=== PATIENT | female | born 1960 | race Two or more races ===

== ENCOUNTER 2019-04-24 06:43 | Inpatient (IN) | payer MEDICAID ==
[2019-04-24 07:53] LABS: % EOSINOPHILS 2.1 % (0.0-5.0); % LYMPHOCYTES 12.4 % (20.0-50.0); % MONOCYTES 7.8 % (2.0-10.0); % NEUTROPHILS 77.7 % (40.0-80.0); EOSINOPHILE ABSOLUTE 0.1 Th/cmm (0.1-0.4); HEMATOCRIT 36.5 % (41.0-60); HEMOGLOBIN 12.1 gm/dL (12-16); LYMPHOCYTE ABSOLUTE 0.8 Th/cmm (1.5-3.0); MEAN CELL VOLUME 88.1 fl (81-100); MEAN CORPUSCULAR HEMOGLOBIN 29.3 pg (27.0-31.0); MEAN CORPUSCULAR HGB CONC 33.2 pg (28.0-36.0); MONOCYTE ABSOLUTE 0.5 Th/cmm (0.3-1.0); NEUTROPHILE ABSOLUTE 5.2 Th/cmm (1.8-8.0); PLATELET COUNT 345 Th/cmm (150-400); RED BLOOD COUNT 4.14 Mil/cmm (3.80-5.10); RED CELL DISTRIBUTION WIDTH 13.4 % (11.5-20.0); WHITE BLOOD COUNT 6.6 Th/cmm (4.8-10.8)
[2019-04-24 08:00] LABS: INR 0.98 (0.5-1.4)
[2019-04-24 08:08] LABS: ALB/GLOB RATIO 0.8 (1.0-1.8); ALBUMIN 3.3 gm/dL (3.7-5.3); ALKALINE PHOSPHATASE 77 U/L (34-104); AMYLASE SERUM 54 U/L (29-103); ANION GAP 10.8 (7.0-16.0); BILIRUBIN,TOTAL 0.4 mg/dL (0.3-1.0); BUN - UREA NITROGEN 13 mg/dL (7-25); CALCIUM SERUM 9.4 mg/dL (8.6-10.3); CARBON DIOXIDE 23.4 mEq/L (21.0-31.0); CHLORIDE 105 mEq/L (98-107); CREATININE - SERUM 0.8 mg/dL (0.6-1.2); GFR AFRICAN-AMERICAN > 60.0 ml/min (>90); GFR NON AFRICAN-AMERICAN > 60.0 ml/min; GLUCOSE 90 mg/dL (70-105); LIPASE 10 U/L (11-82); POTASSIUM SERUM 3.2 mEq/L (3.5-5.1); SGOT 11 U/L (13-39); SGPT/ALT 9 U/L (7-52); SODIUM SERUM 136 mEq/L (136-145); TOTAL PROTEIN,SERUM 7.3 gm/dL (6.0-8.3)
[2019-04-24] MEDS ORDERED: Morphine Sulfate 4 mg/mL 1mL Syr IVP STA (08:48)
[2019-04-24] MEDS ORDERED: Morphine Sulfate 4 mg/mL 1mL Syr ONE (08:49)
[2019-04-24] MEDS ORDERED: Potassium Chloride 20 mEq ER Tab PO ONE ×2 (08:51→08:52)
[2019-04-24] MEDS ORDERED: Morphine Sulfate 4 mg/mL 1mL Syr IV STA (08:52)
--- NOTE | 2019-04-24 09:00 | ED Physician Chart ---
ED Chief Complaint/HPI - Patient Information Date Seen:: 04/24/19 Time Seen:: 08:54 Chief Complaint:: ABD PAIN History of Present Illness:: 58 YR OLD FEMALE WITH HX OF UTERINE CANCER SURGERY 2004 GASTRIC BYPASS SURGERY LATER ON THEN LAST DECEMBER BOWEL SURGERY FOR BOWEL OBSTRUCTION AT [facility] BY DR GAINES COMES NOW FROM [facility] PT OF DR PRASAD PT NOW WITH WOUND OPENING TWO BIG HOLES IN THE WOUND WOUND SCARRING REDDNESS DRAINAGE Allergies:: Allergies Allergy/AdvReac Type Severity Reaction Status Date / Time No Known Allergies Allergy Verified 04/24/19 06:53 Vitals:: Vital Signs - 8 hr 04/24/19 06:45 Temp 98.8 F HR 93 RR 20 BP 108/63 O2 Sat % 96 ED Review of Systems - Review of Systems General/Constitutional: No fever Skin: Other (OPEN MIDLINE WOUND WITH DRAINAGE REDDNESS) Head: No headache ENT: No earache Cardio Vascular: No chest pain Pulmonary: No SOB GI: No vomiting, Constipation G/U: Dysuria, Other (LOSS OF URINARY CONTROL) Musculoskeletal: Back pain Psychiatric: Depression ED Past Medical History - Past Medical History Past Medical History: Other (HYPOTENSION TRACH ON LIFE SUPPORT FOR 3 MOS AT [facility]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 HX COPD ARRYTHMIA ANEMIA PSYCHOSIS PER CHART AND ANXIETY SEPSIS) Family Medical History - Family Member Mother History Unknown: Yes ED Physical Exam - Physical Examination General/Constitutional: Awake (VERY HEAVY SET LADY WITH DIFFICULTIES MOVING IN BED) Head: Atraumatic Eyes: Lids, conjuctiva normal Other Skin comments:: WOUND MIDLINE MUCH SCARRING WITH TWO OPEN HOLES IN THE MIDLINE WOUND IN MIDLINE WOUND WITH REDDNESS DRAINAGE Respiratory: Nl effort/Exclusion Cardio Vascular: RRR Other GI comments:: OPEN WOUND AND DRAINAGE REDDNESS Neuro/Psych: Alert/oriented ED Labs/Radiology/EKG Results - Lab Results Results: Laboratory Tests 04/24/19 04/24/19 04/24/19 07:35 07:35 07:35 WBC 6.6 RBC 4.14 Hgb 12.1 Hct 36.5 L MCV 88.1 MCH 29.3 MCHC Differential 33.2 RDW 13.4 Plt Count 345 MPV 7.6 Neutrophils % 77.7 Lymphocytes % 12.4 L Monocytes % 7.8 Eosinophils % 2.1 Basophils % 0.0 PT 10.2 INR 0.98 Sodium 136 Potassium 3.2 L Chloride 105 Carbon Dioxide 23.4 Anion Gap 10.8 BUN 13 Creatinine 0.8 Est GFR ( Amer) > 60.0 Est GFR (Non-Af Amer) > 60.0 BUN/Creatinine Ratio 16.3 Glucose 90 Calcium 9.4 Total Bilirubin 0.4 AST 11 L ALT 9 Alkaline Phosphatase 77 Troponin I Total Protein 7.3 Albumin 3.3 L Globulin 4.0 Albumin/Globulin Ratio 0.8 L Amylase 54 Lipase 10 L 04/24/19 07:35 WBC RBC Hgb Hct MCV MCH MCHC Differential RDW Plt Count MPV Neutrophils % Lymphocytes % Monocytes % Eosinophils % Basophils % PT INR Sodium Potassium Chloride Carbon Dioxide Anion Gap BUN Creatinine Est GFR ( Amer) Est GFR (Non-Af Amer) BUN/Creatinine Ratio Glucose Calcium Total Bilirubin AST ALT Alkaline Phosphatase Troponin I 0.01 Total Protein Albumin Globulin Albumin/Globulin Ratio Amylase Lipase ED Assessment - Assessment General Assessment: WOUND OPEN DRAINING AFTER BOWEL OBSTRUCTION SURGERY ED Septic Shock - . Is Septic Shock (SBP<90, OR Lactate>4 mmol\L) present?: No - <6hrs of presentation: Vital Signs: Vital Signs - 8 hr 04/24/19 06:45 Temp 98.8 F HR 93 RR 20 BP 108/63 O2 Sat % 96
--- NOTE | 2019-04-24 09:12 | Diagnostic Imaging Report ---
CT abdomen and pelvis without intravenous contrast Indication: Abdominal pain, history of uterine cancer Comparison: None, Technique: Axial images were obtained from the lung bases to the bilateral proximal femurs without IV contrast. Coronal reconstructions were made. total DLP: [id number], CTDI14.1 FINDINGS: Hypoventilatory and atelectatic changes of the lung bases are seen with minimal bibasal passive atelectatic changes. Assessment of the solid organs is limited due to lack of IV contrast. No evidence of focal hepatic lesions. The patient is status post cholecystectomy. No focal splenic lesions. No focal pancreatic or axial lesions. There is severe right hydronephrosis. Faint inferior pole renal calculi are noted measuring up to 6 mm. There are probable faint stones within the right renal pelvis. There is also severe right-sided hydroureter. Postsurgical changes of the pelvis are noted. Surgical clip versus less likely distal right ureteral stone is noted. There is also severe left hydronephrosis with inferior pole left renal calculi measuring up to 6 mm. Severe left hydroureter is also noted. There is a 3 mm calcification at probably adjacent distal one third of the left ureter. There is collapse urinary bladder with urinary bladder wall thickening. Small stones are seen along the posterior dependent aspect of the urinary bladder on the right measuring up to 3 mm. Mild haziness and inflammatory changes are seen along the pelvic fat planes including perirectal fat planes. There is evidence of prior hysterectomy. Trace fluid is also noted in the presacral region. There is also mild distal fecal impaction. There is copious amount of stool throughout the colon. The postsurgical changes of the anterior abdominal wall are noted slight protrusion at the midline and probable tiny fat-containing left-sided hernia to the left of the umbilicus. Postsurgical changes of bowel loops are noted. Gas and fluid-filled loops of the postsurgical changes are also seen beneath the anterior abdominal wall. Appendix is not visualized. Postsurgical changes of the stomach are noted with probable prior gastric bypass. Small hiatal hernia is noted containing soft tissue density in this region. Slight dehiscence of the anterior abdominal wall is noted near the umbilical region. Mild atherosclerosis is noted. No free air. Degenerative changes of the spine are noted with large posterior disc osteophyte complexes along the lower lumbar spine at L4/L5 and L5/S1. At L4/L5 disc osteophyte complex measures 8 mm. At L5/S1 disc osteophyte complex measures 6 to 7 mm. Spinal stenosis is seen at both of these levels. IMPRESSION: Severe bilateral hydronephrosis and hydroureter with bilateral inferior pole renal calcifications and calculi. 2 mm dense seen along the course of the distal right ureter probably due to adjacent postsurgical change. 3 mm calcification probably adjacent to the distal one third of the left ureter versus less likely a distal ureteral stone. Under distended urinary bladder with urinary bladder wall thickening and small stones seen to the right side of the urinary bladder. Postsurgical changes noted with evidence of prior hysterectomy. Mild inflammatory changes are seen throughout the pelvic fat planes with small amount of free fluid seen along the presacral region. The cause of the hydronephrosis is indeterminate and may either be related to small stones or more likely possibly adhesions secondary to patient's pelvic surgery and prior hysterectomy and uterine cancer. Please correlate with clinical findings and old exams. Copious stool with distal fecal impaction noted. Additional postsurgical changes of small bowel loops noted and additional postsurgical changes of anterior abdominal wall with slight dehiscence of the anterior abdominal wall near the umbilicus region. Evidence of prior gastric bypass surgery with small hiatal hernia. Soft tissue density seen in this region which is indeterminate may be of postsurgical sequela however correlation should clinical findings and endoscopy to rule out less likely mass lesion Evidence of prior cholecystectomy. Moderate atherosclerosis. Large posterior disc osteophyte complexes of the lower lumbar spine causing spinal stenosis. The significance of this should be correlated clinically. Please refer to above for complete details..
[2019-04-24] MEDS ORDERED: Sodium Chloride 0.9% 1,000 ML IV ONE (11:27)
[2019-04-24] MEDS ORDERED: Hydrocodone/APAP 5mg/325mg Tab PO ONE (11:28)
[2019-04-24] MEDS ORDERED: cefTRIAXone 2 GM in Sodium Chloride 0.9% 100 ML IV SCH (11:30)
[2019-04-24] MEDS ORDERED: Hydrocodone/APAP 5mg/325mg Tab ONE (11:31)
[2019-04-24 12:16] LABS: URINE SOURCE RANDOM
[2019-04-24 12:22] LABS: URINE BILIRUBIN NEGATIVE (NEGATIVE); URINE BLOOD MODERATE (NEGATIVE); URINE GLUCOSE (UA) NEGATIVE (NEGATIVE); URINE KETONE NEGATIVE (NEGATIVE); URINE LEUKOCYTE ESTERASE MODERATE (NEGATIVE); URINE MICROSCOPIC INDICATED? YES; URINE NITRATE NEGATIVE (NEGATIVE); URINE PH 7.5 (4.6 - 8.0); URINE PROTEIN 30 mg/dL (NEGATIVE); URINE UROBILINOGEN 0.2 E.U./dL (0.2 - 1.0)
[2019-04-24 12:23] LABS: URINE CLARITY CLOUDY (CLEAR); URINE COLOR YELLOW
[2019-04-24 12:29] LABS: URINE EPITHELIAL CELLS MODERATE /lpf (FEW)
[2019-04-24 12:30] LABS: URINE BACTERIA 3+ /hpf (NONE SEEN)
[2019-04-24 12:31] LABS: URINE WBC >100 /hpf (0-5)
[2019-04-24 12:53] VITALS: BP 106/73
[2019-04-24] MEDS ORDERED: Morphine Sulfate 2 mg/mL 1mL Syr IVP PRN ×2 (13:21→20:42)
[2019-04-24] MEDS: D5-0.45NS 1,000 ML IV SCH (14:14)
[2019-04-24] MEDS: Morphine Sulfate 2 mg/mL 1mL Syr IVP PRN ×2 (14:17→18:21)
[2019-04-24] MEDS: Morphine Sulfate 4 mg/mL 1mL Syr IVP PRN (22:00)
[2019-04-25] MEDS: Morphine Sulfate 4 mg/mL 1mL Syr IVP PRN ×5 (02:06→18:06)
[2019-04-25] MEDS: D5-0.45NS 1,000 ML IV SCH ×2 (04:11→18:01)
[2019-04-25 04:22] LABS: % EOSINOPHILS 2.1 % (0.0-5.0); % MONOCYTES 6.1 % (2.0-10.0); % NEUTROPHILS 80.8 % (40.0-80.0); EOSINOPHILE ABSOLUTE 0.1 Th/cmm (0.1-0.4); LYMPHOCYTE ABSOLUTE 0.7 Th/cmm (1.5-3.0); MEAN CELL VOLUME 88.5 fl (81-100); MEAN CORPUSCULAR HEMOGLOBIN 30.2 pg (27.0-31.0); MEAN CORPUSCULAR HGB CONC 34.1 pg (28.0-36.0); MONOCYTE ABSOLUTE 0.4 Th/cmm (0.3-1.0); NEUTROPHILE ABSOLUTE 5.2 Th/cmm (1.8-8.0); PLATELET COUNT 318 Th/cmm (150-400); RED BLOOD COUNT 3.96 Mil/cmm (3.80-5.10); WHITE BLOOD COUNT 6.4 Th/cmm (4.8-10.8)
[2019-04-25 04:50] LABS: BUN - UREA NITROGEN 10 mg/dL (7-25); CALCIUM SERUM 9.3 mg/dL (8.6-10.3); CARBON DIOXIDE 23.6 mEq/L (21.0-31.0); CHLORIDE 106 mEq/L (98-107); CREATININE - SERUM 0.7 mg/dL (0.6-1.2); GFR AFRICAN-AMERICAN > 60.0 ml/min (>90); GFR NON AFRICAN-AMERICAN > 60.0 ml/min; GLUCOSE 119 mg/dL (70-105); POTASSIUM SERUM 3.6 mEq/L (3.5-5.1); SODIUM SERUM 137 mEq/L (136-145)
--- NOTE | 2019-04-25 10:20 | History and Physical ---
History of Present Illness - HPI Chief Complaint: 58 y/o female patient was brought into ER due to Abdominal pain and wound drainage. HPI: 58 y/o female patient was admitted to [facility] due to Abdominal pain and wound redness with drainage. Patient has history of Uterine cancer surgery 2004, Gastric bypass surgery, Bowel obstruction surgery, Hypotension, Copd, Arrhythmia, Anemia, Psychosis, Anxiety and history of Sepsis. Patient had an ER assessment and a complete workup was done. Patient was diagnosed with Wound open draining after Bowel obstruction surgery, Abdominal pain, Spinal stenosis, Back pain and Depression. Patient will have a GI consult and I will follow, treat and monitor patient. Patient will continue current treatment plan as ordered. Vital Signs: Last Vital Signs Temp 97.5 F 04/25/19 08:00 Pulse 93 04/25/19 08:00 Resp 18 04/25/19 08:00 BP 118/73 04/25/19 08:00 Pulse Ox 96 04/25/19 08:00 Past Medical History Cardiovascular: Report: Other (Hx of Hypotension.) Pulmonary: Report: COPD HEALTH UNDERWRITER: Report: Other (Hx of Psychosis.) GI: Report: Other (Open woundwith redness and draining.) Psych: Report: Anxiety, Depression, Other (Hx of Psychosis.) Musculoskeletal: Report: Low Back Pain Infectious Disease: Report: No Pertinent Hx Renal/: Report: No Pertinent Hx Endocrine: Report: No Pertinent Hx Dermatology: Report: Other (open wound.) - Past Surgical History Past Surgical History: Other (Hx of Hystrectomy, Hx of Uterine Cancer Surgery, Hx of Gastric Bypass surgery and Bowel obstruction surgery.) Family Medical History - Family Member Mother History Unknown: Yes Social History Smoke: No Alcohol: None Drugs: None Lives: Custodial Domestic Violence: Negative Health Maintenance Health Maintenance: Other (see chart.) - Medications Home Medications: Home Medication Medication Instructions Recorded Type Acetaminophen [Tylenol] 650 mg PO Q6HR PRN 04/24/19 History Albuterol/Ipratropium Neb [Duoneb 3 ml HHN Q4HR PRN 04/24/19 History Neb] Amino Acids/Protein Hydrolys 30 ml PO TID 04/24/19 History [Pro-Stat Sugar Free Awc 887 ml] Bictegrav/Emtricit/Tenofov Ala 1 each PO QPM 04/24/19 History [Biktarvy 50-200-25 mg Tablet] Cholestyramine (with Sugar) 1 pkt PO DAILY 04/24/19 History [Cholestyramine Packet] Diphenoxylate HCl/Atropine 2 tab PO Q4HR PRN 04/24/19 History [Diphenox/Atropine 0.025 mg-2.5 mg] Docusate Sodium [Colace] 100 mg PO BID 04/24/19 History Ergocalciferol [Vitamin D2] 50,000 iu PO QWEEK 04/24/19 History Ferrous Sulfate 325 mg PO DAILY 04/24/19 History Hydrocodone/APAP 10 mg/325 mg 1 tab PO Q6H PRN 04/24/19 History [[place] 10 mg/325 mg] Hydrocodone/Acetaminophen [[place] 1 each PO Q6HR PRN 04/24/19 History 5-325 Tablet] Insulin Aspart (Niacinamide) See Protocol SQ ACHS 04/24/19 History [Fiasp 100 Unit/ml Vial] Lactulose 30 ml PO BID 04/24/19 History Lorazepam [Ativan] 0.5 mg PO Q4HR PRN 04/24/19 History Mag Hydrox/Al Hydrox/Simeth [Good 30 ml PO Q6HR PRN 04/24/19 History [facility] 355 ml] Midodrine [Proamatine] 10 mg PO Q8HR 04/24/19 History Multivitamin w/ Minerals 1 tab PO DAILY 04/24/19 History [Theragran M] Ondansetron HCl [Zofran*] 4 mg PO Q4HR PRN 04/24/19 History Quetiapine Fumarate [Seroquel Xr] 200 mg PO HS 04/24/19 History Rifaximin [Xifaxan] 550 mg PO BID 04/24/19 History Verapamil HCl [Verapamil ER] 120 mg PO DAILY 04/24/19 History Zolpidem Tartrate [Ambien] 5 mg PO HS 04/24/19 History Other Medications: Please reconcile the medications, continue meds as prescribed. - Allergies Allergies/Adverse Reactions: Allergies Allergy/AdvReac Type Severity Reaction Status Date / Time No Known Allergies Allergy Verified 04/24/19 06:53 Review of Systems - Review of Systems Review of Systems: Patient has difficulties moving in bed. Constitutional: Report: Weakness Eyes: Report: No Significant ENT: Report: No Significant Respiratory: Report: No Significant Cardiovascular: Report: No Significant Gastrointestinal: Report: Abdominal Pain Genitourinary: Report: No Significant Musculoskeletal: Report: Back Pain Skin: Report: Other (open wound draining.) Neurological: Report: Other (Depression.) Physical Exam - Physical Exam HEENT: Report: Ears Nose Throat within normal limits Neck: Report: Tracheostomy site noted to be clean Cardiovascular Systems: Report: +s1/s2 noted Respiratory: Report: Breath Sounds are within normal limits Abdomen: Report: Other (Abdominal pain, Open wound drainage.) Back: Report: Other (back pain.) Extremities: Report: Non-tender to palpation. - Lab Results All Lab Results last 24 hours: Laboratory Results - last 24 hr 04/24/19 04/24/19 04/25/19 12:14 12:38 04:10 WBC 6.4 RBC 3.96 Hgb 12.0 Hct 35.0 L MCV 88.5 MCH 30.2 MCHC Differential 34.1 RDW 13.0 Plt Count 318 MPV 7.7 Neutrophils % 80.8 H Lymphocytes % 11.0 L Monocytes % 6.1 Eosinophils % 2.1 Basophils % 0.0 Sodium Potassium Chloride Carbon Dioxide Anion Gap BUN Creatinine Est GFR ( Amer) Est GFR (Non-Af Amer) BUN/Creatinine Ratio Glucose POC Glucose 93 Calcium Urine Source RANDOM Urine Color YELLOW Urine Clarity CLOUDY H Urine pH 7.5 Ur Specific [place] 1.015 Urine Protein 30 H Urine Glucose (UA) NEGATIVE Urine Ketones NEGATIVE Urine Blood MODERATE H Urine Nitrate NEGATIVE Urine Bilirubin NEGATIVE Urine Urobilinogen 0.2 Ur Leukocyte Esterase MODERATE H Urine RBC 2-5 Urine WBC >100 H Ur Epithelial Cells MODERATE Urine Bacteria 3+ H 04/25/19 04:10 WBC RBC Hgb Hct MCV MCH MCHC Differential RDW Plt Count MPV Neutrophils % Lymphocytes % Monocytes % Eosinophils % Basophils % Sodium 137 Potassium 3.6 Chloride 106 Carbon Dioxide 23.6 Anion Gap 11.0 BUN 10 Creatinine 0.7 Est GFR ( Amer) > 60.0 Est GFR (Non-Af Amer) > 60.0 BUN/Creatinine Ratio 14.3 Glucose 119 H POC Glucose Calcium 9.3 Urine Source Urine Color Urine Clarity Urine pH Ur Specific [place] Urine Protein Urine Glucose (UA) Urine Ketones Urine Blood Urine Nitrate Urine Bilirubin Urine Urobilinogen Ur Leukocyte Esterase Urine RBC Urine WBC Ur Epithelial Cells Urine Bacteria Microbiology 04/24/19 08:01 - Preliminary Blood NO GROWTH AFTER 24 HOURS 04/24/19 07:46 - Preliminary Blood NO GROWTH AFTER 24 HOURS - Assessment Assessment: Wound open draining after Bowel obstruction surgery. Abdominal pain. Back pain. Spinal stenosis. Depression. History of Uterine cancer surgery 2004. History of Gastric bypass surgery. History of Bowel obstruction surgery. History of Hypotension. History of Copd. History of Arrhythmia. History of Anemia. History of Psychosis. History of Anxiety. - Plan Plan: Continuation of care. GI consult. Monitor Vitals, Labs, Hemoglobin levels. Continue present meds as directed. Respiratory treatments and Pulmonary support prn. Supplemental Oxygen prn. Aspiration precaution. Deep suctioning prn. Monitor Diet/Nutritional support. Monitor mental status progression. Monitor behavioral health status. Pain Management. Local skin care and Wound care. Physical therapy prn. Occupational therapy prn . Fall precaution, frequent nursing rounds, and as needed restraints to prevent fall. Safety precaution. Supportive care. Continue collaborating with consulting specialists, case management and nursing team. Will Monitor patient and continue current treatment plan as ordered
[2019-04-25] MEDS ORDERED: Zinc Oxide Ointment 60 gm TP PRN (14:31)
[2019-04-25] MEDS: POLYETHYLENE GLYCOL 3350 17 GM PACK PO SCH (15:01)
--- NOTE | 2019-04-25 15:11 | Consultation ---
DATE OF CONSULTATION: 04/25/2019 REQUESTING PHYSICIAN: Dr. Bach. REASON FOR CONSULTATION: Abdominal pain and wound drainage. HISTORY OF PRESENT ILLNESS: This is a 58-year-old morbidly obese female who was admitted for continuous abdominal pain and wound dehiscence. The patient has a history of uterine cancer surgery in 2004, gastric bypass surgery and has had most recently a bowel obstruction and was operated on back in with ongoing dehiscence of her abdominal wound and drainage. The patient has not been seen by a surgeon yet here in the hospital. She is complaining of abdominal pain and constipation. She cannot remember the last time that she has had a bowel movement. She underwent a CT scan, which showed copious amounts of stool with distal fecal impaction. She also had significant hydronephrosis that was seen, which may be related to underlying adhesions from prior pelvic surgery and hysterectomy and uterine cancer. PAST MEDICAL HISTORY: As stated above, COPD, hypertension, morbid obesity. MEDICATIONS: Have been reviewed. SOCIAL HISTORY: No tobacco, alcohol or drugs. FAMILY HISTORY: Noncontributory for GI disease. PHYSICAL EXAMINATION: VITAL SIGNS: Temperature of 97.5, pulse of 88, respiratory rate of 20, blood pressure is 118/73, satting 96% on room air. GENERAL: In no acute distress. HEENT: Normocephalic, atraumatic. PERRLA positive. LUNGS: Clear bilaterally. No wheezes, rales or rhonchi. HEART: Regular rate and rhythm, normal S1, S2. ABDOMEN: Soft. She has a midline incisional site, two spots of which have nonhealing ulceration and serosanguineous fluid draining from them. EXTREMITIES: Show no lower extremity edema. PSYCHOLOGIC: Alert and oriented x 3. NEUROLOGIC: Grossly intact. LABORATORY DATA: White count of 6.4, hemoglobin of 12, platelet count of 318,000. ASSESSMENT AND PLAN: This is a morbidly obese 58-year-old female with history of uterine cancer, status post total hysterectomy, history of gastric bypass as well as history of recent laparotomy in 12/2018 with wound dehiscence, ongoing abdominal pain and fecal impaction. 1. Abdominal pain. 2. Fecal impaction. 3. History of wound dehiscence from recent surgery in 12/2018. 4. History of uterine cancer. 5. Hydronephrosis. RECOMMENDATIONS: 1. Recommend aggressive bowel regimen with MiraLax scheduled daily up to twice a day as well as 1 tap water enema now to help with fecal impaction to see if this will alleviate and help with abdominal pain. 2. Continue with bowel regimen on a regular basis. 3. Consider surgical consultation for ongoing wound dehiscence, but would recommend continuing with wound care and add zinc oxide to help with wound healing. 4. Slowly advance diet as tolerated. 5. Continue with supportive care management. Thank you for allowing us to participate in this patient's care. [facility]# [id number]
[2019-04-25] MEDS ORDERED: Maalox 30 mL Cup PO PRN (19:15)
[2019-04-25] MEDS ORDERED: Diphenoxylate/Atropine 2.5mg Tab PO PRN (19:15)
[2019-04-25] MEDS ORDERED: Albuterol/Ipratropium Neb 3 ML AERS HHN PRN (19:15)
[2019-04-25] MEDS ORDERED: Non-Formulary Item 1 EA (Amino Acids/Protein Hydrolys [Pro-Stat Awc Liquid] 30 ML) PO SCH (21:00)
[2019-04-26] MEDS: Morphine Sulfate 2 mg/mL 1mL Syr IVP PRN ×2 (04:41→19:52)
[2019-04-26] MEDS: Hydrocodone/APAP 10 mg/325 mg Tab PO PRN ×2 (06:00→12:40)
[2019-04-26] MEDS: INSULIN LISPRO SLIDING SCALE 100 UNITS/ML UNIT SUBQ SCH ×4 (06:47→21:54)
--- NOTE | 2019-04-26 07:43 | Consultation ---
DATE OF CONSULTATION: 04/26/2019 PSYCHIATRIC CONSULTATION AGE: 58. SEX: Female. PHYSICIAN: Dr. Bach. RN CVICU: Dr. Martin. TYPE OF THE REPORT: Psychiatric consult. REASON FOR THE CONSULT: Depression and monitoring psychotropic medications. HISTORY OF PRESENT ILLNESS: The patient is a 58-year-old female with history of bipolar disorder. The patient was admitted to the hospital because of bowel obstruction. The patient has been taking Seroquel 200 mg at bedtime. The patient said that she has been feeling severely depressed because of her medical condition. The patient was living by herself about a month ago, the patient had to go to [facility] because of her medical condition. The patient said that she has been feeling hopeless and helpless and has been having lack of energy and lack of motivations. She also has been having high anxiety and insomnia. Otherwise, the patient is compliant with taking Seroquel with no side effects and she denies any thoughts of suicide. PAST PSYCHIATRIC HISTORY: The patient has been in treatment for bipolar disorder and has been seeing a psychiatrist as an outpatient. PAST MEDICAL HISTORY: The patient has gastric bypass, but currently she has a bowel obstruction. The patient also has COPD and arrhythmia and hypertension. SOCIAL HISTORY: The patient is single, never and has only one adult son. The patient denies any alcohol or any street drug use or legal issues or abuse issues. MENTAL STATUS EXAM: The patient appears slightly older than her stated age. Sad affect. In a depressed mood. Thought processes are mainly goal directed. The patient denies any auditory or visual hallucinations or delusions. She denies any thoughts of suicide or homicide. The patient is alert and oriented to time, place, person, and situation. Intact immediate, recent and remote memories. Fair insight. Fair judgment. She seems to be of average intelligence based on her verbal ability. ASSESSMENT: PRIMARY DIAGNOSES: Bipolar disorder, depressed episode, moderate to severe, without psychotic features. TREATMENT PLAN: We will continue monitoring her behavior closely. We will continue Seroquel 200 mg at bedtime and will adjust the dose. We will also work on her ineffective coping. Thanks to Dr. Bach and we will follow up with you. JOB# [id number]
[2019-04-26] MEDS: Lactulose 10 Gm/15 mL 30mL UDC PO SCH ×2 (08:26→17:06)
[2019-04-26] MEDS: POLYETHYLENE GLYCOL 3350 17 GM PACK PO SCH (08:26)
[2019-04-26] MEDS: Multivitamin w/ Minerals Tab PO SCH (08:28)
[2019-04-26] MEDS: Ferrous Sulfate 325 MG TAB PO SCH (08:29)
[2019-04-26] MEDS: Verapamil HCl SR 120 mg Tab PO SCH (09:30)
--- NOTE | 2019-04-26 10:35 | Consultation ---
Consult Note - Consult Note Service Date: 04/26/19 Referring Physician: Evan Bach Consult Note: PHYSICIAN Consultation Note: Date of Admission: 04/24/19 Purpose of Consultation: abdominal pain, wound dehiscence. Chief Complaint: Patient NOAM KRISHNA was admitted to location Medical/ Surgical Unit I with ABDOMINAL PAIN. History of Present Illness: 58-year-old female with PMH of COPD, HTN, had multiple abdominal surgery, with recent one on 12/2018, at [facility], brought to the ED for abdominal pains. On initial evaluation, her temperature was 98.8F and WBC count was 6,600. Patient has wound dehiscence at the incision site. CT scan a/ p revealed hydronephrosis, fecal impaction. ID consult was called for antibiotic management. Past Medical History: COPD, HTN, uterine CA, multiple abdominal surgeries. Gastric bypass surgery. Recent abdominal surgery performed at the [facility], for small bowel obstruction in December,. Chronic pain syndrome and dependance. Allergies Allergy/AdvReac Type Severity Reaction Status Date / Time No Known Allergies Allergy Verified 04/24/19 06:53 Vital Signs Temp 97.2 F 04/26/19 07:46 Pulse 60 04/26/19 09:30 Resp 18 04/26/19 07:46 BP 111/62 04/26/19 09:30 Pulse Ox 94 04/26/19 07:46 Intake & Output 04/25/19 04/26/19 04/26/19 18:59 06:59 18:59 Intake Total 1800 290 300 Balance 1800 290 300 Weight (lbs) 83.007 kg 83.007 kg 83.007 kg Intake: Intake, IV Amount 1050 50 D5-0.45NS 1,000 ml @ 75 1000 mls/hr IV .[id number] [facility] Rx #:[id number] Piperacillin Sodium/ 50 50 Tazobact 3.375 gm In Sodium Chloride 0.9% 50 ml @ 100 mls/hr IV Q8HR [facility] Rx#:[id number] Oral 750 240 300 Other: # Voids 3 4 # Bowel Movements 3 1 Stool Characteristics Formed Formed Formed Brown Brown Brown Weight Source Bedscale Bedscale Bedscale Laboratory Results - last 24 hr 04/25/19 04/26/19 22:12 06:43 POC Glucose 73 116 H Home Medication Medication Instructions Recorded Type Acetaminophen [Tylenol] 650 mg PO Q6HR PRN 04/24/19 History Albuterol/Ipratropium Neb [Duoneb 3 ml HHN Q4HR PRN 04/24/19 History Neb] Amino Acids/Protein Hydrolys 30 ml PO TID 04/24/19 History [Pro-Stat Sugar Free Awc 887 ml] Bictegrav/Emtricit/Tenofov Ala 1 each PO QPM 04/24/19 History [Biktarvy 50-200-25 mg Tablet] Cholestyramine (with Sugar) 1 pkt PO DAILY 04/24/19 History [Cholestyramine Packet] Diphenoxylate HCl/Atropine 2 tab PO Q4HR PRN 04/24/19 History [Diphenox/Atropine 0.025 mg-2.5 mg] Docusate Sodium [Colace] 100 mg PO BID 04/24/19 History Ergocalciferol [Vitamin D2] 50,000 iu PO QWEEK 04/24/19 History Ferrous Sulfate 325 mg PO DAILY 04/24/19 History Hydrocodone/APAP 10 mg/325 mg 1 tab PO Q6H PRN 04/24/19 History [[place] 10 mg/325 mg] Hydrocodone/Acetaminophen [[place] 1 each PO Q6HR PRN 04/24/19 History 5-325 Tablet] Insulin Aspart (Niacinamide) See Protocol SQ ACHS 04/24/19 History [Fiasp 100 Unit/ml Vial] Lactulose 30 ml PO BID 04/24/19 History Lorazepam [Ativan] 0.5 mg PO Q4HR PRN 04/24/19 History Mag Hydrox/Al Hydrox/Simeth [Good 30 ml PO Q6HR PRN 04/24/19 History [facility] 355 ml] Midodrine [Proamatine] 10 mg PO Q8HR 04/24/19 History Multivitamin w/ Minerals 1 tab PO DAILY 04/24/19 History [Theragran M] Ondansetron HCl [Zofran*] 4 mg PO Q4HR PRN 04/24/19 History Quetiapine Fumarate [Seroquel Xr] 200 mg PO HS 04/24/19 History Rifaximin [Xifaxan] 550 mg PO BID 04/24/19 History Verapamil HCl [Verapamil ER] 120 mg PO DAILY 04/24/19 History Zolpidem Tartrate [Ambien] 5 mg PO HS 04/24/19 History Current Medications Generic Name Dose Route Start Last Admin Trade Name Freq PRN Reason Stop Dose Admin Acetaminophen 650 mg 04/25/19 19:15 Tylenol PO 06/24/19 19:14 Q6HR PRN Pain or Fever >101 Acetaminophen/Hydrocodone Bitart 1 tab 04/25/19 19:15 04/26/19 06:00 [place] 10 Mg/325 Mg PO 06/24/19 19:14 1 tab Q6H PRN Administration Pain (Severe) Acetaminophen/Hydrocodone Bitart 1 tab 04/25/19 19:15 [place] 5mg/325mg PO 06/24/19 19:14 Q6HR PRN Pain (Moderate) Al Hydrox/Mg Hydrox/Simethicone 30 ml 04/25/19 19:15 Maalox PO 06/24/19 19:14 Q6HR PRN Constipation Albuterol/Ipratropium 3 ml 04/25/19 19:15 Duoneb Neb HHN 06/24/19 19:14 Q4HR PRN Shortness of Breath Cholestyramine Resin 4 gm 04/26/19 09:00 04/26/19 08:26 Questran PO 06/25/19 08:59 4 gm DAILY [facility] Administration Diphenoxylate HCl/Atropine 2 tab 04/25/19 19:15 Lomotil PO 06/24/19 19:14 Q4HR PRN UNK Docusate Sodium 100 mg 04/26/19 09:00 04/26/19 08:28 Colace PO 06/25/19 08:59 100 mg BID [facility] Administration Ergocalciferol 50,000 iu 04/26/19 09:00 04/26/19 09:43 Vitamin D2 PO 06/25/19 08:59 50,000 iu QWEEK [facility] Administration Ferrous Sulfate 325 mg 04/26/19 09:00 04/26/19 08:29 Iron PO 06/25/19 08:59 325 mg DAILY [facility] Administration Dextrose/Sodium Chloride 1,000 mls @ 75 mls/hr 04/24/19 13:16 04/25/19 18:01 D5-0.45ns IV 06/23/19 13:15 75 mls/hr .[id number] [facility] Administration Piperacillin Sod/Tazobactam 50 mls @ 100 mls/hr 04/24/19 13:30 04/26/19 04:41 Sod 3.375 gm/ Sodium Chloride IV 06/23/19 13:29 100 mls/hr Q8HR [facility] Administration Insulin Human Lispro 0 units 04/26/19 07:30 04/26/19 06:47 Humalog Insulin Sliding Scale SUBQ 06/25/19 07:29 Not Given ACHS [facility] Protocol Lactulose 20 gm 04/26/19 09:00 04/26/19 08:26 Cephulac PO 06/25/19 08:59 20 gm BID [facility] Administration Lorazepam 1 mg 04/24/19 13:19 04/26/19 06:03 Ativan PO 06/23/19 13:18 1 mg Q8HR PRN Administration Anxiety Protocol Lorazepam 0.5 mg 04/25/19 19:17 Ativan PO 06/24/19 19:16 Q4HR PRN Anxiety Protocol Midodrine 10 mg 04/25/19 21:00 04/26/19 06:10 Proamatine PO 06/24/19 20:59 10 mg Q8HR [facility] Administration Morphine Sulfate 1 mg 04/24/19 20:42 04/26/19 04:41 Morphine IVP 06/23/19 13:20 1 mg Q4HR PRN Administration MILD PAIN Morphine Sulfate 2 mg 04/24/19 20:42 Morphine IVP 06/23/19 13:21 Q4HR PRN MODERATE PAIN Morphine Sulfate 4 mg 04/24/19 20:43 04/25/19 18:06 Morphine IVP 06/23/19 20:42 4 mg Q4H PRN Administration Severe Pain Ondansetron HCl 4 mg 04/25/19 19:15 Zofran Odt PO Q4HR PRN Nausea Patient Own Med- 1 04/26/19 17:00 Biktarvy 50-200-25 PO 06/25/19 16:59 QPM [facility] Petrolatum 1 appl 04/25/19 14:31 Zinc Oxide TP 06/24/19 14:30 BID PRN Abdominal Cramping Polyethylene Glycol 17 gm 04/25/19 14:30 04/26/19 08:26 Miralax PO 06/24/19 14:29 17 gm DAILY [facility] Administration Quetiapine Fumarate 200 mg 04/25/19 21:00 04/25/19 22:40 Seroquel Xr PO 06/24/19 20:59 Not Given HS [facility] Protocol Rifaximin 550 mg 04/26/19 09:00 04/26/19 08:26 Xifaxan PO 06/25/19 08:59 550 mg BID [facility] Administration Verapamil HCl 120 mg 04/26/19 09:00 04/26/19 09:30 Calan Sr PO 06/25/19 08:59 Not Given DAILY [facility] Zolpidem Tartrate 5 mg 04/25/19 21:00 04/25/19 21:21 Ambien PO 06/24/19 20:59 5 mg HS [facility] Administration Review of Systems: A 12 point ROS was reviewed with the pertinent positive and negatives noted in the HPI. NO fever, no chills. c/o abdominal pains. Social History Smoking Status Former smoker. Alcohol Status None. Recreations drug use None. Lives at SNF. Family Medical History non-contributory. Physical Exam: General: Comfortable, not in any acute distress. Obese female. HEENT: Head: NC NT. Oral cavity: moist, pink tongue. Eyes: Pupil PERRLA, EOMI. Pallor present, no icterus. Neck: Supple, no JVD,no carotid bruit. No use of accessory neck muscle. no lymphadenopathy. No thyromegaly. Cardio: S1 and S2 WNL. RRR, No murmur, no gallop. No rub. Respiratory: CTAP Abdominal: Soft. tender, Midline incision sites 2 small openings draining sero- sanguineous fluid. Genital/Urinary: deferred. Extremities: NCCE/ Neurological: AAOx3, no focal neuro-deficit. Assessment: 1. UTI 2. Abdominal pains. 3. Wound dehiscence, may have Enterocutaneous fistula. 4. COPD. 5. May have sleep apnea. 6. h/o recent abdominal surgery. 7. Obesity. 8. HTN. 0. Chronic pain syndrome and pain medicine dependance. Plan: Continue Zosyn, depending on the culture report will define final antibiotic therapy. Wound care. Thank you, Dr Bach for involving me in taking care of Ms Krishna. Signed, Jose Thakur M.D. 021
--- NOTE | 2019-04-26 11:17 | Consultation ---
Consult Note - Consult Note Service Date: 04/26/19 Referring Physician: Evan Bach Consult Note: PHYSICIAN Consultation Note: Date of Admission: 04/24/19 Purpose of Consultation: Chief Complaint: Purpose of Consultation: abdominal pain, wound dehiscence. Chief Complaint: Patient NOAM KRISHNA was admitted to location Medical/ Surgical Unit I with ABDOMINAL PAIN. History of Present Illness: 58-year-old female with PMH of HIV, COPD, HTN, had multiple abdominal surgery, with recent one on 12/2018, at [facility], brought to the ED for abdominal pains. On initial evaluation, her temperature was 98.8F and WBC count was 6,600. Patient has wound dehiscence at the incision site. CT scan a/p revealed hydronephrosis, fecal impaction. ID consult was called for antibiotic management. Past Medical History: HIV, COPD, HTN, uterine CA, multiple abdominal surgeries. Gastric bypass surgery. Recent abdominal surgery performed at the [facility], for small bowel obstruction in December,. Chronic pain syndrome and dependance. 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 CD4 270 (?) and HIV RNA PCR nondetectable. taking Biktarvy. Allergies Allergy/AdvReac Type Severity Reaction Status Date / Time No Known Allergies Allergy Verified 04/24/19 06:53 Vital Signs Temp 97.2 F 04/26/19 07:46 Pulse 60 04/26/19 09:30 Resp 18 04/26/19 07:46 BP 111/62 04/26/19 09:30 Pulse Ox 94 04/26/19 07:46 Intake & Output 04/25/19 04/26/19 04/26/19 18:59 06:59 18:59 Intake Total 1800 290 300 Balance 1800 290 300 Weight (lbs) 83.007 kg 83.007 kg 83.007 kg Intake: Intake, IV Amount 1050 50 D5-0.45NS 1,000 ml @ 75 1000 mls/hr IV .[id number] [facility] Rx #:[id number] Piperacillin Sodium/ 50 50 Tazobact 3.375 gm In Sodium Chloride 0.9% 50 ml @ 100 mls/hr IV Q8HR [facility] Rx#:[id number] Oral 750 240 300 Other: # Voids 3 4 # Bowel Movements 3 1 Stool Characteristics Formed Formed Formed Brown Brown Brown Weight Source Bedscale [facility] Laboratory Results - last 24 hr 04/25/19 04/26/19 22:12 06:43 POC Glucose 73 116 H Home Medication Medication Instructions Recorded Type Acetaminophen [Tylenol] 650 mg PO Q6HR PRN 04/24/19 History Albuterol/Ipratropium Neb [Duoneb 3 ml HHN Q4HR PRN 04/24/19 History Neb] Amino Acids/Protein Hydrolys 30 ml PO TID 04/24/19 History [Pro-Stat Sugar Free Awc 887 ml] Bictegrav/Emtricit/Tenofov Ala 1 each PO QPM 04/24/19 History [Biktarvy 50-200-25 mg Tablet] Cholestyramine (with Sugar) 1 pkt PO DAILY 04/24/19 History [Cholestyramine Packet] Diphenoxylate HCl/Atropine 2 tab PO Q4HR PRN 04/24/19 History [Diphenox/Atropine 0.025 mg-2.5 mg] Docusate Sodium [Colace] 100 mg PO BID 04/24/19 History Ergocalciferol [Vitamin D2] 50,000 iu PO QWEEK 04/24/19 History Ferrous Sulfate 325 mg PO DAILY 04/24/19 History Hydrocodone/APAP 10 mg/325 mg 1 tab PO Q6H PRN 04/24/19 History [[place] 10 mg/325 mg] Hydrocodone/Acetaminophen [[place] 1 each PO Q6HR PRN 04/24/19 History 5-325 Tablet] Insulin Aspart (Niacinamide) See Protocol SQ ACHS 04/24/19 History [Fiasp 100 Unit/ml Vial] Lactulose 30 ml PO BID 04/24/19 History Lorazepam [Ativan] 0.5 mg PO Q4HR PRN 04/24/19 History Mag Hydrox/Al Hydrox/Simeth [Good 30 ml PO Q6HR PRN 04/24/19 History [facility] 355 ml] Midodrine [Proamatine] 10 mg PO Q8HR 04/24/19 History Multivitamin w/ Minerals 1 tab PO DAILY 04/24/19 History [Theragran M] Ondansetron HCl [Zofran*] 4 mg PO Q4HR PRN 04/24/19 History Quetiapine Fumarate [Seroquel Xr] 200 mg PO HS 04/24/19 History Rifaximin [Xifaxan] 550 mg PO BID 04/24/19 History Verapamil HCl [Verapamil ER] 120 mg PO DAILY 04/24/19 History Zolpidem Tartrate [Ambien] 5 mg PO HS 04/24/19 History Current Medications Generic Name Dose Route Start Last Admin Trade Name Freq PRN Reason Stop Dose Admin Acetaminophen 650 mg 04/25/19 19:15 Tylenol PO 06/24/19 19:14 Q6HR PRN Pain or Fever >101 Acetaminophen/Hydrocodone Bitart 1 tab 04/25/19 19:15 04/26/19 06:00 [place] 10 Mg/325 Mg PO 06/24/19 19:14 1 tab Q6H PRN Administration Pain (Severe) Acetaminophen/Hydrocodone Bitart 1 tab 04/25/19 19:15 [place] 5mg/325mg PO 06/24/19 19:14 Q6HR PRN Pain (Moderate) Al Hydrox/Mg Hydrox/Simethicone 30 ml 04/25/19 19:15 Maalox PO 06/24/19 19:14 Q6HR PRN Constipation Albuterol/Ipratropium 3 ml 04/25/19 19:15 Duoneb Neb HHN 06/24/19 19:14 Q4HR PRN Shortness of Breath Cholestyramine Resin 4 gm 04/26/19 09:00 04/26/19 08:26 Questran PO 06/25/19 08:59 4 gm DAILY [facility] Administration Diphenoxylate HCl/Atropine 2 tab 04/25/19 19:15 Lomotil PO 06/24/19 19:14 Q4HR PRN UNK Docusate Sodium 100 mg 04/26/19 09:00 04/26/19 08:28 Colace PO 06/25/19 08:59 100 mg BID [facility] Administration Ergocalciferol 50,000 iu 04/26/19 09:00 04/26/19 09:43 Vitamin D2 PO 06/25/19 08:59 50,000 iu QWEEK [facility] Administration Ferrous Sulfate 325 mg 04/26/19 09:00 04/26/19 08:29 Iron PO 06/25/19 08:59 325 mg DAILY [facility] Administration Dextrose/Sodium Chloride 1,000 mls @ 75 mls/hr 04/24/19 13:16 04/25/19 18:01 D5-0.45ns IV 06/23/19 13:15 75 mls/hr .[id number] [facility] Administration Piperacillin Sod/Tazobactam 50 mls @ 100 mls/hr 04/24/19 13:30 04/26/19 04:41 Sod 3.375 gm/ Sodium Chloride IV 06/23/19 13:29 100 mls/hr Q8HR [facility] Administration Insulin Human Lispro 0 units 04/26/19 07:30 04/26/19 06:47 Humalog Insulin Sliding Scale SUBQ 06/25/19 07:29 Not Given ACHS [facility] Protocol Lactulose 20 gm 04/26/19 09:00 04/26/19 08:26 Cephulac PO 06/25/19 08:59 20 gm BID [facility] Administration Lorazepam 1 mg 04/24/19 13:19 04/26/19 06:03 Ativan PO 06/23/19 13:18 1 mg Q8HR PRN Administration Anxiety Protocol Lorazepam 0.5 mg 04/25/19 19:17 Ativan PO 06/24/19 19:16 Q4HR PRN Anxiety Protocol Midodrine 10 mg 04/25/19 21:00 04/26/19 06:10 Proamatine PO 06/24/19 20:59 10 mg Q8HR [facility] Administration Morphine Sulfate 1 mg 04/24/19 20:42 04/26/19 04:41 Morphine IVP 06/23/19 13:20 1 mg Q4HR PRN Administration MILD PAIN Morphine Sulfate 2 mg 04/24/19 20:42 Morphine IVP 06/23/19 13:21 Q4HR PRN MODERATE PAIN Morphine Sulfate 4 mg 04/24/19 20:43 04/25/19 18:06 Morphine IVP 06/23/19 20:42 4 mg Q4H PRN Administration Severe Pain Ondansetron HCl 4 mg 04/25/19 19:15 Zofran Odt PO Q4HR PRN Nausea Patient Own Med- 1 04/26/19 17:00 Biktarvy 50-200-25 PO 06/25/19 16:59 QPM [facility] Petrolatum 1 appl 04/25/19 14:31 Zinc Oxide TP 06/24/19 14:30 BID PRN Abdominal Cramping Polyethylene Glycol 17 gm 04/25/19 14:30 04/26/19 08:26 Miralax PO 06/24/19 14:29 17 gm DAILY [facility] Administration Quetiapine Fumarate 200 mg 04/25/19 21:00 04/25/19 22:40 Seroquel Xr PO 06/24/19 20:59 Not Given HS [facility] Protocol Rifaximin 550 mg 04/26/19 09:00 04/26/19 08:26 Xifaxan PO 06/25/19 08:59 550 mg BID [facility] Administration Verapamil HCl 120 mg 04/26/19 09:00 04/26/19 09:30 Calan Sr PO 06/25/19 08:59 Not Given DAILY [facility] Zolpidem Tartrate 5 mg 04/25/19 21:00 04/25/19 21:21 Ambien PO 06/24/19 20:59 5 mg HS [facility] Administration Review of Systems: A 12 point ROS was reviewed with the pertinent positive and negatives noted in the HPI. NO fever, no chills. c/o abdominal pains. Social History Smoking Status Former smoker. Alcohol Status None. Recreations drug use None. Lives at [facility]. Family Medical History non-contributory. Physical Exam: General: Comfortable, not in any acute distress. Obese female. HEENT: Head: NC NT. Oral cavity: moist, pink tongue. Eyes: Pupil PERRLA, EOMI. Pallor present, no icterus. Neck: Supple, no JVD,no carotid bruit. No use of accessory neck muscle. no lymphadenopathy. No thyromegaly. Cardio: S1 and S2 WNL. RRR, No murmur, no gallop. No rub. Respiratory: CTAP Abdominal: Soft. tender, Midline incision sites 2 small openings draining sero- sanguineous fluid. Genital/Urinary: deferred. Extremities: NCCE/ Neurological: AAOx3, no focal neuro-deficit. Assessment: 1. UTI 2. Abdominal pains. 3. Wound dehiscence, may have Enterocutaneous fistula. 4. HIV (HIV RNA PCR: undetectable, CD4 270>3 months, as per the patient) 5. May have sleep apnea. 6. h/o recent abdominal surgery. 7. Obesity. 8. HTN. 10. Chronic pain syndrome and pain medicine dependance. 11. COPD. Plan: Continue Zosyn, depending on the culture report will define final antibiotic therapy. Wound care. Check HIV RNA PCR and CD4 count. Continue Biktarvy. Thank you, Dr Bach for involving me in taking care of Ms Krishna. Blaze Cantrell Devesh N., M.D. 110
--- NOTE | 2019-04-26 15:06 | GI Progress Note ---
Subjective - Review of Systems Service Date: 04/26/19 Events since last encounter: no new events GI OBJECTIVE - Results Result Diagrams: 04/25/19 04:10 04/25/19 04:10 Recent Labs: Laboratory Last Values WBC 6.4 Th/cmm (4.8-10.8) 04/25/19 04:10 RBC 3.96 Mil/cmm (3.80-5.10) 04/25/19 04:10 Hgb 12.0 gm/dL (12-16) 04/25/19 04:10 Hct 35.0 % (41.0-60) L 04/25/19 04:10 MCV 88.5 fl (81-100) 04/25/19 04:10 MCH 30.2 pg (27.0-31.0) 04/25/19 04:10 MCHC Differential 34.1 pg (28.0-36.0) 04/25/19 04:10 RDW 13.0 % (11.5-20.0) 04/25/19 04:10 Plt Count 318 Th/cmm (150-400) 04/25/19 04:10 MPV 7.7 fl 04/25/19 04:10 Neutrophils % 80.8 % (40.0-80.0) H 04/25/19 04:10 Lymphocytes % 11.0 % (20.0-50.0) L 04/25/19 04:10 Monocytes % 6.1 % (2.0-10.0) 04/25/19 04:10 Eosinophils % 2.1 % (0.0-5.0) 04/25/19 04:10 Basophils % 0.0 % (0.0-2.0) 04/25/19 04:10 PT 10.2 SECONDS (9.5-11.5) 04/24/19 07:35 INR 0.98 (0.5-1.4) 04/24/19 07:35 Sodium 137 mEq/L (136-145) 04/25/19 04:10 Potassium 3.6 mEq/L (3.5-5.1) 04/25/19 04:10 Chloride 106 mEq/L (98-107) 04/25/19 04:10 Carbon Dioxide 23.6 mEq/L (21.0-31.0) 04/25/19 04:10 Anion Gap 11.0 (7.0-16.0) 04/25/19 04:10 BUN 10 mg/dL (7-25) 04/25/19 04:10 Creatinine 0.7 mg/dL (0.6-1.2) 04/25/19 04:10 Est GFR ( Amer) > 60.0 ml/min (>90) 04/25/19 04:10 Est GFR (Non-Af Amer) > 60.0 ml/min 04/25/19 04:10 BUN/Creatinine Ratio 14.3 04/25/19 04:10 Glucose 119 mg/dL (70-105) H 04/25/19 04:10 POC Glucose 94 MG/DL (70 - 105) 04/26/19 11:13 Calcium 9.3 mg/dL (8.6-10.3) 04/25/19 04:10 Total Bilirubin 0.4 mg/dL (0.3-1.0) 04/24/19 07:35 AST 11 U/L (13-39) L 04/24/19 07:35 ALT 9 U/L (7-52) 04/24/19 07:35 Alkaline Phosphatase 77 U/L (34-104) 04/24/19 07:35 Troponin I 0.01 ng/mL (0.01-0.05) 04/24/19 07:35 Total Protein 7.3 gm/dL (6.0-8.3) 04/24/19 07:35 Albumin 3.3 gm/dL (3.7-5.3) L 04/24/19 07:35 Globulin 4.0 gm/dL 04/24/19 07:35 Albumin/Globulin Ratio 0.8 (1.0-1.8) L 04/24/19 07:35 Amylase 54 U/L (29-103) 04/24/19 07:35 Lipase 10 U/L (11-82) L 04/24/19 07:35 Urine Source RANDOM 04/24/19 12:14 Urine Color YELLOW 04/24/19 12:14 Urine Clarity CLOUDY (CLEAR) H 04/24/19 12:14 Urine pH 7.5 (4.6 - 8.0) 04/24/19 12:14 Ur Specific [place] 1.015 (1.005-1.030) 04/24/19 12:14 Urine Protein 30 mg/dL (NEGATIVE) H 04/24/19 12:14 Urine Glucose (UA) NEGATIVE mg/dL (NEGATIVE) 04/24/19 12:14 Urine Ketones NEGATIVE mg/dL (NEGATIVE) 04/24/19 12:14 Urine Blood MODERATE (NEGATIVE) H 04/24/19 12:14 Urine Nitrate NEGATIVE (NEGATIVE) 04/24/19 12:14 Urine Bilirubin NEGATIVE (NEGATIVE) 04/24/19 12:14 Urine Urobilinogen 0.2 E.U./dL (0.2 - 1.0) 04/24/19 12:14 Ur Leukocyte Esterase MODERATE (NEGATIVE) H 04/24/19 12:14 Urine RBC 2-5 /hpf (0-5) 04/24/19 12:14 Urine WBC >100 /hpf (0-5) H 04/24/19 12:14 Ur Epithelial Cells MODERATE /lpf (FEW) 04/24/19 12:14 Urine Bacteria 3+ /hpf (NONE SEEN) H 04/24/19 12:14 HIV 1&2 Antibody Screen POSITIVE (NEG) H 04/26/19 11:30 - Physical Exam Vitals and I&O: Vital Signs Temp 97.1 F 04/26/19 11:00 Pulse 79 04/26/19 11:00 Resp 18 04/26/19 11:00 BP 100/61 04/26/19 11:00 Pulse Ox 100 04/26/19 11:00 Intake & Output 04/25/19 04/26/19 04/26/19 18:59 06:59 18:59 Intake Total 1800 290 300 Balance 1800 290 300 Weight (lbs) 83.007 kg 83.007 kg 83.007 kg Intake: Intake, IV Amount 1050 50 D5-0.45NS 1,000 ml @ 75 1000 mls/hr IV .[id number] [facility] Rx #:[id number] Piperacillin Sodium/ 50 50 Tazobact 3.375 gm In Sodium Chloride 0.9% 50 ml @ 100 mls/hr IV Q8HR [facility] Rx#:[id number] Oral 750 240 300 Other: # Voids 3 4 # Bowel Movements 3 1 Stool Characteristics Formed Formed Formed Brown Brown Brown Weight Source Bedscale Bedscale Bedscale Active Medications: Current Medications Acetaminophen (Tylenol) 650 mg PO Q6HR PRN PRN Reason: Pain or Fever >101 Stop: 06/24/19 19:14 Acetaminophen/Hydrocodone Bitart ([place] 10 Mg/325 Mg) 1 tab PO Q6H PRN PRN Reason: Pain (Severe) Stop: 06/24/19 19:14 Last Admin: 04/26/19 12:40 Dose: 1 tab Acetaminophen/Hydrocodone Bitart ([place] 5mg/325mg) 1 tab PO Q6HR PRN PRN Reason: Pain (Moderate) Stop: 06/24/19 19:14 Al Hydrox/Mg Hydrox/Simethicone (Maalox) 30 ml PO Q6HR PRN PRN Reason: Constipation Stop: 06/24/19 19:14 Albuterol/Ipratropium (Duoneb Neb) 3 ml HHN Q4HR PRN PRN Reason: Shortness of Breath Stop: 06/24/19 19:14 Cholestyramine Resin (Questran) 4 gm PO DAILY [facility] Stop: 06/25/19 08:59 Last Admin: 04/26/19 08:26 Dose: 4 gm Diphenoxylate HCl/Atropine (Lomotil) 2 tab PO Q4HR PRN PRN Reason: UNK Stop: 06/24/19 19:14 Docusate Sodium (Colace) 100 mg PO BID [facility] Stop: 06/25/19 08:59 Last Admin: 04/26/19 08:28 Dose: 100 mg Ergocalciferol (Vitamin D2) 50,000 iu PO QWEEK [facility] Stop: 06/25/19 08:59 Last Admin: 04/26/19 09:43 Dose: 50,000 iu Ferrous Sulfate (Iron) 325 mg PO DAILY [facility] Stop: 06/25/19 08:59 Last Admin: 04/26/19 08:29 Dose: 325 mg Dextrose/Sodium Chloride (D5-0.45ns) 1,000 mls @ 75 mls/hr IV .[id number] [facility] Stop: 06/23/19 13:15 Last Admin: 04/25/19 18:01 Dose: 75 mls/hr Piperacillin Sod/Tazobactam (Sod 3.375 gm/ Sodium Chloride) 50 mls @ 100 mls/ hr IV Q8HR [facility] Stop: 06/23/19 13:29 Last Admin: 04/26/19 04:41 Dose: 100 mls/hr Insulin Human Lispro (Humalog Insulin Sliding Scale) 0 units SUBQ ACHS [facility]; Protocol Stop: 06/25/19 07:29 Last Admin: 04/26/19 11:17 Dose: Not Given Lactulose (Cephulac) 20 gm PO BID [facility] Stop: 06/25/19 08:59 Last Admin: 04/26/19 08:26 Dose: 20 gm Lorazepam (Ativan) 1 mg PO Q8HR PRN; Protocol PRN Reason: Anxiety Stop: 06/23/19 13:18 Last Admin: 04/26/19 06:03 Dose: 1 mg Lorazepam (Ativan) 0.5 mg PO Q4HR PRN; Protocol PRN Reason: Anxiety Stop: 06/24/19 19:16 Midodrine (Proamatine) 10 mg PO Q8HR [facility] Stop: 06/24/19 20:59 Last Admin: 04/26/19 12:40 Dose: 10 mg Morphine Sulfate (Morphine) 1 mg IVP Q4HR PRN PRN Reason: MILD PAIN Stop: 06/23/19 13:20 Last Admin: 04/26/19 04:41 Dose: 1 mg Morphine Sulfate (Morphine) 2 mg IVP Q4HR PRN PRN Reason: MODERATE PAIN Stop: 06/23/19 13:21 Morphine Sulfate (Morphine) 4 mg IVP Q4H PRN PRN Reason: Severe Pain Stop: 06/23/19 20:42 Last Admin: 04/25/19 18:06 Dose: 4 mg Ondansetron HCl (Zofran Odt) 4 mg PO Q4HR PRN PRN Reason: Nausea Patient Own Med- (Biktarvy [id number]) 1 PO QPM [facility] Stop: 06/25/19 16:59 Petrolatum (Zinc Oxide) 1 appl TP BID PRN PRN Reason: Abdominal Cramping Stop: 06/24/19 14:30 Polyethylene Glycol (Miralax) 17 gm PO DAILY [facility] Stop: 06/24/19 14:29 Last Admin: 04/26/19 08:26 Dose: 17 gm Quetiapine Fumarate (Seroquel Xr) 200 mg PO HS [facility]; Protocol Stop: 06/24/19 20:59 Last Admin: 04/25/19 22:40 Dose: Not Given Rifaximin (Xifaxan) 550 mg PO BID [facility] Stop: 06/25/19 08:59 Last Admin: 04/26/19 08:26 Dose: 550 mg Verapamil HCl (Calan Sr) 120 mg PO DAILY [facility] Stop: 06/25/19 08:59 Last Admin: 04/26/19 09:30 Dose: Not Given Zolpidem Tartrate (Ambien) 5 mg PO HS [facility] Stop: 06/24/19 20:59 Last Admin: 04/25/19 21:21 Dose: 5 mg General: Alert, Cooperative HEENT: Atraumatic, EOMI Neck: Supple, JVD, Thyromegaly Cardiovascular: Normal S1 Lungs: Clear to auscultation Abdomen: Bowel sounds Assessment/Plan - Assessment Assessment: 1. fecal impaction 2. abdominal pain 3. abdominal wound dehiscence 4. Hx of uterine cancer 5. hx of HIV -wound care, consider surgical consult -check KUB in AM -Enemas, prn miralax -add PO mineral oil
[2019-04-26] MEDS ORDERED: [UNRECOGNIZED DRUG - OTHER] PO SCH (17:00)
--- NOTE | 2019-04-26 17:23 | Internal Medicine Prog Note ---
Internal Medicine Subjective - Subjective Service Date: 04/26/19 Patient seen and examined:: with staff Patient is:: awake, verbal Per staff patient has:: tolerating meds Internal Medicine Objective - Results Result Diagrams: 04/25/19 04:10 04/25/19 04:10 Recent Labs: Laboratory Last Values WBC 6.4 Th/cmm (4.8-10.8) 04/25/19 04:10 RBC 3.96 Mil/cmm (3.80-5.10) 04/25/19 04:10 Hgb 12.0 gm/dL (12-16) 04/25/19 04:10 Hct 35.0 % (41.0-60) L 04/25/19 04:10 MCV 88.5 fl (81-100) 04/25/19 04:10 MCH 30.2 pg (27.0-31.0) 04/25/19 04:10 MCHC Differential 34.1 pg (28.0-36.0) 04/25/19 04:10 RDW 13.0 % (11.5-20.0) 04/25/19 04:10 Plt Count 318 Th/cmm (150-400) 04/25/19 04:10 MPV 7.7 fl 04/25/19 04:10 Neutrophils % 80.8 % (40.0-80.0) H 04/25/19 04:10 Lymphocytes % 11.0 % (20.0-50.0) L 04/25/19 04:10 Monocytes % 6.1 % (2.0-10.0) 04/25/19 04:10 Eosinophils % 2.1 % (0.0-5.0) 04/25/19 04:10 Basophils % 0.0 % (0.0-2.0) 04/25/19 04:10 PT 10.2 SECONDS (9.5-11.5) 04/24/19 07:35 INR 0.98 (0.5-1.4) 04/24/19 07:35 Sodium 137 mEq/L (136-145) 04/25/19 04:10 Potassium 3.6 mEq/L (3.5-5.1) 04/25/19 04:10 Chloride 106 mEq/L (98-107) 04/25/19 04:10 Carbon Dioxide 23.6 mEq/L (21.0-31.0) 04/25/19 04:10 Anion Gap 11.0 (7.0-16.0) 04/25/19 04:10 BUN 10 mg/dL (7-25) 04/25/19 04:10 Creatinine 0.7 mg/dL (0.6-1.2) 04/25/19 04:10 Est GFR ( Amer) > 60.0 ml/min (>90) 04/25/19 04:10 Est GFR (Non-Af Amer) > 60.0 ml/min 04/25/19 04:10 BUN/Creatinine Ratio 14.3 04/25/19 04:10 Glucose 119 mg/dL (70-105) H 04/25/19 04:10 POC Glucose 94 MG/DL (70 - 105) 04/26/19 11:13 Calcium 9.3 mg/dL (8.6-10.3) 04/25/19 04:10 Total Bilirubin 0.4 mg/dL (0.3-1.0) 04/24/19 07:35 AST 11 U/L (13-39) L 04/24/19 07:35 ALT 9 U/L (7-52) 04/24/19 07:35 Alkaline Phosphatase 77 U/L (34-104) 04/24/19 07:35 Troponin I 0.01 ng/mL (0.01-0.05) 04/24/19 07:35 Total Protein 7.3 gm/dL (6.0-8.3) 04/24/19 07:35 Albumin 3.3 gm/dL (3.7-5.3) L 04/24/19 07:35 Globulin 4.0 gm/dL 04/24/19 07:35 Albumin/Globulin Ratio 0.8 (1.0-1.8) L 04/24/19 07:35 Amylase 54 U/L (29-103) 04/24/19 07:35 Lipase 10 U/L (11-82) L 04/24/19 07:35 Urine Source RANDOM 04/24/19 12:14 Urine Color YELLOW 04/24/19 12:14 Urine Clarity CLOUDY (CLEAR) H 04/24/19 12:14 Urine pH 7.5 (4.6 - 8.0) 04/24/19 12:14 Ur Specific [place] 1.015 (1.005-1.030) 04/24/19 12:14 Urine Protein 30 mg/dL (NEGATIVE) H 04/24/19 12:14 Urine Glucose (UA) NEGATIVE mg/dL (NEGATIVE) 04/24/19 12:14 Urine Ketones NEGATIVE mg/dL (NEGATIVE) 04/24/19 12:14 Urine Blood MODERATE (NEGATIVE) H 04/24/19 12:14 Urine Nitrate NEGATIVE (NEGATIVE) 04/24/19 12:14 Urine Bilirubin NEGATIVE (NEGATIVE) 04/24/19 12:14 Urine Urobilinogen 0.2 E.U./dL (0.2 - 1.0) 04/24/19 12:14 Ur Leukocyte Esterase MODERATE (NEGATIVE) H 04/24/19 12:14 Urine RBC 2-5 /hpf (0-5) 04/24/19 12:14 Urine WBC >100 /hpf (0-5) H 04/24/19 12:14 Ur Epithelial Cells MODERATE /lpf (FEW) 04/24/19 12:14 Urine Bacteria 3+ /hpf (NONE SEEN) H 04/24/19 12:14 HIV 1&2 Antibody Screen POSITIVE (NEG) H 04/26/19 11:30 - Physical Exam Vitals and I&O: Vital Signs Temp 97.2 F 04/26/19 15:00 Pulse 88 04/26/19 15:00 Resp 18 04/26/19 15:00 BP 116/72 04/26/19 15:00 Pulse Ox 97 04/26/19 15:00 Intake & Output 04/25/19 04/26/19 04/26/19 18:59 06:59 18:59 Intake Total 1800 340 300 Balance 1800 340 300 Weight (lbs) 183 lb 183 lb 183 lb Intake: Intake, IV Amount 1050 100 D5-0.45NS 1,000 ml @ 75 1000 mls/hr IV .[id number] [facility] Rx #:[id number] Piperacillin Sodium/ 50 100 Tazobact 3.375 gm In Sodium Chloride 0.9% 50 ml @ 100 mls/hr IV Q8HR [facility] Rx#:[id number] Oral 750 240 300 Other: # Voids 3 4 # Bowel Movements 3 1 Stool Characteristics Formed Formed Formed Brown Brown Brown Weight Source Bedscale Bedscale Bedscale Active Medications: Current Medications Acetaminophen (Tylenol) 650 mg PO Q6HR PRN PRN Reason: Pain or Fever >101 Stop: 06/24/19 19:14 Acetaminophen/Hydrocodone Bitart ([place] 10 Mg/325 Mg) 1 tab PO Q6H PRN PRN Reason: Pain (Severe) Stop: 06/24/19 19:14 Last Admin: 04/26/19 12:40 Dose: 1 tab Acetaminophen/Hydrocodone Bitart ([place] 5mg/325mg) 1 tab PO Q6HR PRN PRN Reason: Pain (Moderate) Stop: 06/24/19 19:14 Al Hydrox/Mg Hydrox/Simethicone (Maalox) 30 ml PO Q6HR PRN PRN Reason: Constipation Stop: 06/24/19 19:14 Albuterol/Ipratropium (Duoneb Neb) 3 ml HHN Q4HR PRN PRN Reason: Shortness of Breath Stop: 06/24/19 19:14 Cholestyramine Resin (Questran) 4 gm PO DAILY [facility] Stop: 06/25/19 08:59 Last Admin: 04/26/19 08:26 Dose: 4 gm Diphenoxylate HCl/Atropine (Lomotil) 2 tab PO Q4HR PRN PRN Reason: UNK Stop: 06/24/19 19:14 Docusate Sodium (Colace) 100 mg PO BID [facility] Stop: 06/25/19 08:59 Last Admin: 04/26/19 17:07 Dose: 100 mg Ergocalciferol (Vitamin D2) 50,000 iu PO QWEEK [facility] Stop: 06/25/19 08:59 Last Admin: 04/26/19 09:43 Dose: 50,000 iu Ferrous Sulfate (Iron) 325 mg PO DAILY [facility] Stop: 06/25/19 08:59 Last Admin: 04/26/19 08:29 Dose: 325 mg Dextrose/Sodium Chloride (D5-0.45ns) 1,000 mls @ 75 mls/hr IV .[id number] [facility] Stop: 06/23/19 13:15 Last Admin: 04/25/19 18:01 Dose: 75 mls/hr Piperacillin Sod/Tazobactam (Sod 3.375 gm/ Sodium Chloride) 50 mls @ 100 mls/ hr IV Q8HR [facility] Stop: 06/23/19 13:29 Last Admin: 04/26/19 14:00 Dose: 100 mls/hr Insulin Human Lispro (Humalog Insulin Sliding Scale) 0 units SUBQ ACHS [facility]; Protocol Stop: 06/25/19 07:29 Last Admin: 04/26/19 11:17 Dose: Not Given Lactulose (Cephulac) 20 gm PO BID [facility] Stop: 06/25/19 08:59 Last Admin: 04/26/19 17:06 Dose: 20 gm Lorazepam (Ativan) 1 mg PO Q8HR PRN; Protocol PRN Reason: Anxiety Stop: 06/23/19 13:18 Last Admin: 04/26/19 06:03 Dose: 1 mg Lorazepam (Ativan) 0.5 mg PO Q4HR PRN; Protocol PRN Reason: Anxiety Stop: 06/24/19 19:16 Midodrine (Proamatine) 10 mg PO Q8HR [facility] Stop: 06/24/19 20:59 Last Admin: 04/26/19 12:40 Dose: 10 mg Mineral Oil (Mineral Oil 30 Ml) 30 ml PO DAILY PRN PRN Reason: Constipation Stop: 06/25/19 15:09 Morphine Sulfate (Morphine) 1 mg IVP Q4HR PRN PRN Reason: MILD PAIN Stop: 06/23/19 13:20 Last Admin: 04/26/19 04:41 Dose: 1 mg Morphine Sulfate (Morphine) 2 mg IVP Q4HR PRN PRN Reason: MODERATE PAIN Stop: 06/23/19 13:21 Morphine Sulfate (Morphine) 4 mg IVP Q4H PRN PRN Reason: Severe Pain Stop: 06/23/19 20:42 Last Admin: 04/25/19 18:06 Dose: 4 mg Ondansetron HCl (Zofran Odt) 4 mg PO Q4HR PRN PRN Reason: Nausea Patient Own Med- (Biktarvy 50-200-25) 1 PO QPM [facility] Stop: 06/25/19 16:59 Petrolatum (Zinc Oxide) 1 appl TP BID PRN PRN Reason: Abdominal Cramping Stop: 06/24/19 14:30 Polyethylene Glycol (Miralax) 17 gm PO DAILY [facility] Stop: 06/24/19 14:29 Last Admin: 04/26/19 08:26 Dose: 17 gm Quetiapine Fumarate (Seroquel Xr) 200 mg PO HS [facility]; Protocol Stop: 06/24/19 20:59 Last Admin: 04/25/19 22:40 Dose: Not Given Rifaximin (Xifaxan) 550 mg PO BID [facility] Stop: 06/25/19 08:59 Last Admin: 04/26/19 17:07 Dose: 550 mg Verapamil HCl (Calan Sr) 120 mg PO DAILY [facility] Stop: 06/25/19 08:59 Last Admin: 04/26/19 09:30 Dose: Not Given Zolpidem Tartrate (Ambien) 5 mg PO HS [facility] Stop: 06/24/19 20:59 Last Admin: 04/25/19 21:21 Dose: 5 mg General: weak, alert HEENT: NC/AT, PERRLA Neck: Supple Lungs: CTAB Cardiovascular: RRR, Normal S1, Normal S2 Abdomen: non-tender Neurological: bedbound Internal Medicine Assmt/Plan - Assessment Assessment: Wound open draining after Bowel obstruction surgery. Abdominal pain. Back pain. Spinal stenosis. Depression. History of Uterine cancer surgery 2004. History of Gastric bypass surgery. History of Bowel obstruction surgery. History of Hypotension. History of Copd. History of Arrhythmia. History of Anemia. History of Psychosis. History of Anxiety. - Plan Plan: colonoscopy tomorrow am labs continue current plan of care Nutritional Asmnt/Malnutr-PDOC - Dietary Evaluation Malnutrition Findings (Please click <Entered> for more info): Nutritional Asmnt/Malnutrition Start: 04/25/19 15: 29 Text: Status: Complete Freq: Protocol: Document 04/25/19 15:29 RASHIDA (Rec: 04/25/19 15:35 RASHIDA [id number]) Nutritional Asmnt/Malnutrition Patient General Information Nutritional Screening Moderate Risk Consult Diagnosis Abdominal pain Pertinent Medical Hx/Surgical Hx Hypotension, COPD, Arrythmia, Anemia, Psychosis, Anxiety, Sepsis, Uterine cancer surgery 2004, Gastric bypass surgery, Bowel obstruction surgery Subjective Information IA/Consult: Andrea Score 12 Pt is a 58-year-old female from longterm admitted on 04/24 c/o abdominal pain and wound redness with drainage. Per Meal/Nutrition Activity Record, Pt ate 50% lunch and 75% dinner yesterday 04/24. Per nurse note on 04/25, 2 large abdominal wound openings noted on abdomen, site packed and covered with abdominal dressing. Pt was sleeping at time of visit. Spoke to GEORGIE Mendez, Pt ate 25-50% breakfast and dinner today, poor appetite d/t abdominal pain, no nausea reported. Pending Wound care consultation. GEORGIE Mendez stated PT usual diet is CCHO in longterm. Recommend adding Glucerna TID to increase calories/protein needs and to support wound healing. Will continue monitor PO intake and wound healing progress. HT: 55 WT: 183 lb 4.8 oz (83.18 kg) ADJ BW: 67.47 kg BMI: 30.57 (Obese) GI: Nausea, Abdominal pain, Constipation, Large, Round, Tender BM: 04/25 x 2 I/O: 1960/100 (+1860) Skin: Warm, Dry, Elastic, Old Scar on Sacrum Wound: 2 large wound openings on abdomen Andrea: 14 Diet Order: [facility] Estimated Energy Needs: ( Pressure Ulcer Stage III-IV, ADJ BW) 8753-7554 kcals (33-35 kcals/ kg) 101-135 g Pro (1.5-2.0 g/kg) 0281-5888 ml (35-40 ml/kg) Current Diet Order/ Nutrition Support CCHO Pertinent Medications D5-0.45ns, Zinc Oxide Pertinent Labs 04/25: Hgb/Hct 12.0/35.0, Glucose 119 04/24: Hgb/Hct 12.1/36.5, Potass 3.2, Alb 3.3 Nutritional Hx/Data Height 5 ft 5 in Height (Calculated Centimeters) 165.1 Current Weight (lbs) 183 lb Weight (Calculated Kilograms) 83.0 Weight (Calculated Grams) 66467.4 [place] Body Weight 57 kg % [place] Body Weight 146 Body Mass Index (BMI) 30.4 Weight Status Obese GI Symptoms GI Symptoms Nausea Constipation Last BM 04/25 x 2 Usual diet at home Carbs Contorlled diet at [facility] Skin Integrity/Comment: Skin: Warm, Dry, Elastic, Old Scar on Sacrum Wound: 2 large wound openings on abdomen Andrea: 14 Estimated Nutritional Goals BEE in Kcals: Adj wt of IBW Calories/Kcals/Kg 33-35 Kcals Calculated 4514-6292 Protein: Adj wt of IBW Protein g/k.5-2.0 Protein Calculated 101-135 Fluid: ml 0410-1205 ml (35-40 ml/kg) Nutritional Problem 2. Problem Problem Inadequate oral intake Etiology r/t abdominal pain Signs/Symptoms: aeb PO intake 25-50% on 04/25 per RN statement. 1. Problem Problem Increased calories and protein needs Etiology r/t wound healing Signs/Symptoms: aeb 2 large abdominal wound openings noted on abdomen Malnutrition Related to Morbid Obesity Malnutrition related to morbid obesity No Intervention/Recommendation Comments [facility]. 2.Added Glucerna TID to increase calories/protein needs and to support wound healing (completed). 3.RN to encourage improved PO intake. Expected Outcomes/Goals Expected Outcomes/Goals 1.PO intake to meet 75% of nutritional needs. 2.Monitor PO intake, wt, nutrition related labs, and skin integrity to trend WNL. 3.F/U as moderate risk in 3-5 days, 04/28-04/30
[2019-04-26] MEDS: BIKTARVY PO SCH (17:52)
[2019-04-27] MEDS: Hydrocodone/APAP 10 mg/325 mg Tab PO PRN ×2 (00:44→12:52)
[2019-04-27] MEDS: D5-0.45NS 1,000 ML IV SCH (06:19)
[2019-04-27] MEDS: INSULIN LISPRO SLIDING SCALE 100 UNITS/ML UNIT SUBQ SCH ×4 (06:38→21:00)
[2019-04-27] MEDS: Hydrocodone/APAP 5mg/325mg Tab PO PRN ×3 (06:50→23:52)
[2019-04-27] MEDS: Verapamil HCl SR 120 mg Tab PO SCH (08:23)
[2019-04-27] MEDS: Ferrous Sulfate 325 MG TAB PO SCH (08:24)
[2019-04-27] MEDS: Multivitamin w/ Minerals Tab PO SCH (08:25)
[2019-04-27] MEDS: Lactulose 10 Gm/15 mL 30mL UDC PO SCH ×2 (08:26→16:27)
[2019-04-27] MEDS: POLYETHYLENE GLYCOL 3350 17 GM PACK PO SCH (08:26)
--- NOTE | 2019-04-27 09:37 | Diagnostic Imaging Report ---
Exam: KUB of the abdomen HISTORY: Fecal impaction FINDINGS: Portable summation the abdomen at 0 726 reviewed. The study demonstrates nonspecific bowel gas pattern. Multiple metallic clips are noted throughout the abdomen. The bowel gas distribution nonspecific. There is no evidence of fecal impaction. Degenerative changes lumbosacral spine. IMPRESSION: Nonspecific bowel gas pattern.
--- NOTE | 2019-04-27 11:05 | Internal Medicine Prog Note ---
Internal Medicine Subjective - Subjective Service Date: 04/27/19 Patient seen and examined:: with staff Patient is:: awake, verbal Patient Complaints of:: other (Admitted with open wound with drainage.) Per staff patient has:: no adverse event, no episodes of fall, tolerating meds Internal Medicine Objective - Results Result Diagrams: 04/25/19 04:10 04/25/19 04:10 Recent Labs: Laboratory Last Values WBC 6.4 Th/cmm (4.8-10.8) 04/25/19 04:10 RBC 3.96 Mil/cmm (3.80-5.10) 04/25/19 04:10 Hgb 12.0 gm/dL (12-16) 04/25/19 04:10 Hct 35.0 % (41.0-60) L 04/25/19 04:10 MCV 88.5 fl (81-100) 04/25/19 04:10 MCH 30.2 pg (27.0-31.0) 04/25/19 04:10 MCHC Differential 34.1 pg (28.0-36.0) 04/25/19 04:10 RDW 13.0 % (11.5-20.0) 04/25/19 04:10 Plt Count 318 Th/cmm (150-400) 04/25/19 04:10 MPV 7.7 fl 04/25/19 04:10 Neutrophils % 80.8 % (40.0-80.0) H 04/25/19 04:10 Lymphocytes % 11.0 % (20.0-50.0) L 04/25/19 04:10 Monocytes % 6.1 % (2.0-10.0) 04/25/19 04:10 Eosinophils % 2.1 % (0.0-5.0) 04/25/19 04:10 Basophils % 0.0 % (0.0-2.0) 04/25/19 04:10 PT 10.2 SECONDS (9.5-11.5) 04/24/19 07:35 INR 0.98 (0.5-1.4) 04/24/19 07:35 Sodium 137 mEq/L (136-145) 04/25/19 04:10 Potassium 3.6 mEq/L (3.5-5.1) 04/25/19 04:10 Chloride 106 mEq/L (98-107) 04/25/19 04:10 Carbon Dioxide 23.6 mEq/L (21.0-31.0) 04/25/19 04:10 Anion Gap 11.0 (7.0-16.0) 04/25/19 04:10 BUN 10 mg/dL (7-25) 04/25/19 04:10 Creatinine 0.7 mg/dL (0.6-1.2) 04/25/19 04:10 Est GFR ( Amer) > 60.0 ml/min (>90) 04/25/19 04:10 Est GFR (Non-Af Amer) > 60.0 ml/min 04/25/19 04:10 BUN/Creatinine Ratio 14.3 04/25/19 04:10 Glucose 119 mg/dL (70-105) H 04/25/19 04:10 POC Glucose 96 MG/DL (70 - 105) 04/27/19 06:35 Calcium 9.3 mg/dL (8.6-10.3) 04/25/19 04:10 Total Bilirubin 0.4 mg/dL (0.3-1.0) 04/24/19 07:35 AST 11 U/L (13-39) L 04/24/19 07:35 ALT 9 U/L (7-52) 04/24/19 07:35 Alkaline Phosphatase 77 U/L (34-104) 04/24/19 07:35 Troponin I 0.01 ng/mL (0.01-0.05) 04/24/19 07:35 Total Protein 7.3 gm/dL (6.0-8.3) 04/24/19 07:35 Albumin 3.3 gm/dL (3.7-5.3) L 04/24/19 07:35 Globulin 4.0 gm/dL 04/24/19 07:35 Albumin/Globulin Ratio 0.8 (1.0-1.8) L 04/24/19 07:35 Amylase 54 U/L (29-103) 04/24/19 07:35 Lipase 10 U/L (11-82) L 04/24/19 07:35 Urine Source RANDOM 04/24/19 12:14 Urine Color YELLOW 04/24/19 12:14 Urine Clarity CLOUDY (CLEAR) H 04/24/19 12:14 Urine pH 7.5 (4.6 - 8.0) 04/24/19 12:14 Ur Specific [place] 1.015 (1.005-1.030) 04/24/19 12:14 Urine Protein 30 mg/dL (NEGATIVE) H 04/24/19 12:14 Urine Glucose (UA) NEGATIVE mg/dL (NEGATIVE) 04/24/19 12:14 Urine Ketones NEGATIVE mg/dL (NEGATIVE) 04/24/19 12:14 Urine Blood MODERATE (NEGATIVE) H 04/24/19 12:14 Urine Nitrate NEGATIVE (NEGATIVE) 04/24/19 12:14 Urine Bilirubin NEGATIVE (NEGATIVE) 04/24/19 12:14 Urine Urobilinogen 0.2 E.U./dL (0.2 - 1.0) 04/24/19 12:14 Ur Leukocyte Esterase MODERATE (NEGATIVE) H 04/24/19 12:14 Urine RBC 2-5 /hpf (0-5) 04/24/19 12:14 Urine WBC >100 /hpf (0-5) H 04/24/19 12:14 Ur Epithelial Cells MODERATE /lpf (FEW) 04/24/19 12:14 Urine Bacteria 3+ /hpf (NONE SEEN) H 04/24/19 12:14 HIV 1&2 Antibody Screen POSITIVE (NEG) H 04/26/19 11:30 - Physical Exam Vitals and I&O: Vital Signs Temp 96.9 F 04/27/19 08:00 Pulse 62 04/27/19 08:23 Resp 19 04/27/19 08:00 BP 115/69 04/27/19 08:23 Pulse Ox 97 04/27/19 08:00 Intake & Output 04/26/19 04/27/19 04/27/19 18:59 06:59 18:59 Intake Total 1350 290 Balance 1350 290 Weight (lbs) 83.007 kg 83.007 kg Intake: Intake, IV Amount 1050 50 D5-0.45NS 1,000 ml @ 75 1000 mls/hr IV .[id number] [facility] Rx #:[id number] Piperacillin Sodium/ 50 50 Tazobact 3.375 gm In Sodium Chloride 0.9% 50 ml @ 100 mls/hr IV Q8HR [facility] Rx#:[id number] Oral 300 240 Other: # Voids 5 # Bowel Movements 4 Stool Characteristics Formed Formed Brown Brown Weight Source Bedscale Bedscale Active Medications: Current Medications Acetaminophen (Tylenol) 650 mg PO Q6HR PRN PRN Reason: Pain or Fever >101 Stop: 06/24/19 19:14 Acetaminophen/Hydrocodone Bitart ([place] 10 Mg/325 Mg) 1 tab PO Q6H PRN PRN Reason: Pain (Severe) Stop: 06/24/19 19:14 Last Admin: 04/27/19 00:44 Dose: 1 tab Acetaminophen/Hydrocodone Bitart ([place] 5mg/325mg) 1 tab PO Q6HR PRN PRN Reason: Pain (Moderate) Stop: 06/24/19 19:14 Last Admin: 04/27/19 06:50 Dose: 1 tab Al Hydrox/Mg Hydrox/Simethicone (Maalox) 30 ml PO Q6HR PRN PRN Reason: Constipation Stop: 06/24/19 19:14 Albuterol/Ipratropium (Duoneb Neb) 3 ml HHN Q4HR PRN PRN Reason: Shortness of Breath Stop: 06/24/19 19:14 Cholestyramine Resin (Questran) 4 gm PO DAILY [facility] Stop: 06/25/19 08:59 Last Admin: 04/27/19 08:24 Dose: 4 gm Diphenoxylate HCl/Atropine (Lomotil) 2 tab PO Q4HR PRN PRN Reason: UNK Stop: 06/24/19 19:14 Docusate Sodium (Colace) 100 mg PO BID [facility] Stop: 06/25/19 08:59 Last Admin: 04/27/19 08:26 Dose: Not Given Ergocalciferol (Vitamin D2) 50,000 iu PO QWEEK [facility] Stop: 06/25/19 08:59 Last Admin: 04/26/19 09:43 Dose: 50,000 iu Ferrous Sulfate (Iron) 325 mg PO DAILY [facility] Stop: 06/25/19 08:59 Last Admin: 04/27/19 08:24 Dose: 325 mg Dextrose/Sodium Chloride (D5-0.45ns) 1,000 mls @ 75 mls/hr IV .[id number] [facility] Stop: 06/23/19 13:15 Last Admin: 04/27/19 06:19 Dose: 75 mls/hr Piperacillin Sod/Tazobactam (Sod 3.375 gm/ Sodium Chloride) 50 mls @ 100 mls/ hr IV Q8HR [facility] Stop: 06/23/19 13:29 Last Admin: 04/27/19 06:14 Dose: 100 mls/hr Insulin Human Lispro (Humalog Insulin Sliding Scale) 0 units SUBQ ACHS [facility]; Protocol Stop: 06/25/19 07:29 Last Admin: 04/27/19 06:38 Dose: Not Given Lactulose (Cephulac) 20 gm PO BID [facility] Stop: 06/25/19 08:59 Last Admin: 04/27/19 08:26 Dose: Not Given Lorazepam (Ativan) 1 mg PO Q8HR PRN; Protocol PRN Reason: Anxiety Stop: 06/23/19 13:18 Last Admin: 04/26/19 20:35 Dose: 1 mg Lorazepam (Ativan) 0.5 mg PO Q4HR PRN; Protocol PRN Reason: Anxiety Stop: 06/24/19 19:16 Last Admin: 04/27/19 08:25 Dose: 0.5 mg Midodrine (Proamatine) 10 mg PO Q8HR [facility] Stop: 06/24/19 20:59 Last Admin: 04/27/19 06:51 Dose: 10 mg Mineral Oil (Mineral Oil 30 Ml) 30 ml PO DAILY PRN PRN Reason: Constipation Stop: 06/25/19 15:09 Morphine Sulfate (Morphine) 1 mg IVP Q4HR PRN PRN Reason: MILD PAIN Stop: 06/23/19 13:20 Last Admin: 04/26/19 19:52 Dose: 1 mg Morphine Sulfate (Morphine) 2 mg IVP Q4HR PRN PRN Reason: MODERATE PAIN Stop: 06/23/19 13:21 Morphine Sulfate (Morphine) 4 mg IVP Q4H PRN PRN Reason: Severe Pain Stop: 06/23/19 20:42 Last Admin: 04/25/19 18:06 Dose: 4 mg Ondansetron HCl (Zofran Odt) 4 mg PO Q4HR PRN PRN Reason: Nausea Patient Own Med- (Biktarvy 50-200-25) 1 PO QPM [facility] Stop: 06/25/19 16:59 Last Admin: 04/26/19 17:52 Dose: Not Given Petrolatum (Zinc Oxide) 1 appl TP BID PRN PRN Reason: Abdominal Cramping Stop: 06/24/19 14:30 Polyethylene Glycol (Miralax) 17 gm PO DAILY [facility] Stop: 06/24/19 14:29 Last Admin: 04/27/19 08:26 Dose: Not Given Quetiapine Fumarate (Seroquel Xr) 200 mg PO HS [facility]; Protocol Stop: 06/24/19 20:59 Last Admin: 04/26/19 21:00 Dose: Not Given Rifaximin (Xifaxan) 550 mg PO BID [facility] Stop: 06/25/19 08:59 Last Admin: 04/27/19 08:24 Dose: 550 mg Verapamil HCl (Calan Sr) 120 mg PO DAILY [facility] Stop: 06/25/19 08:59 Last Admin: 04/27/19 08:23 Dose: Not Given Zolpidem Tartrate (Ambien) 5 mg PO HS [facility] Stop: 06/24/19 20:59 Last Admin: 04/26/19 21:30 Dose: Not Given Physical Exam: Patient has discharge from wound, which is being treated. General: weak, alert HEENT: NC/AT, PERRLA Neck: Supple Lungs: CTAB Cardiovascular: RRR, Normal S1, Normal S2 Abdomen: non-tender Extremities: clear Neurological: bedbound Internal Medicine Assmt/Plan - Assessment Assessment: Wound open draining after Bowel obstruction surgery. Abdominal pain. Back pain. Spinal stenosis. Depression. History of Uterine cancer surgery 2004. History of Gastric bypass surgery. History of Bowel obstruction surgery. History of Hypotension. History of Copd. History of Arrhythmia. History of Anemia. History of Psychosis. History of Anxiety. - Plan Plan: Continuation of care. GI consult. Monitor Vitals, Labs, Hemoglobin levels. Continue present meds as directed. Respiratory treatments and Pulmonary support prn. Supplemental Oxygen prn. Aspiration precaution. Deep suctioning prn. Monitor Diet/Nutritional support. Monitor mental status progression. Monitor behavioral health status. Pain Management. Local skin care and Wound care. Physical therapy prn. Occupational therapy prn . Fall precaution, frequent nursing rounds, and as needed restraints to prevent fall. Safety precaution. Supportive care. Continue collaborating with consulting specialists, case management and nursing team. Will Monitor patient and continue present care management. Nutritional Asmnt/Malnutr-PDOC - Dietary Evaluation Malnutrition Findings (Please click <Entered> for more info): Nutritional Asmnt/Malnutrition Start: 04/25/19 15: 29 Text: Status: Complete Freq: Protocol: Document 04/25/19 15:29 RASHIDA (Rec: 04/25/19 15:35 [email or web address] [id number]) Nutritional Asmnt/Malnutrition Patient General Information Nutritional Screening Moderate Risk Consult Diagnosis Abdominal pain Pertinent Medical Hx/Surgical Hx Hypotension, COPD, Arrythmia, Anemia, Psychosis, Anxiety, Sepsis, Uterine cancer surgery 2004, Gastric bypass surgery, Bowel obstruction surgery Subjective Information IA/Consult: Andrea Score 12 Pt is a 58-year-old female from [place] admitted on 04/24 c/o abdominal pain and wound redness with drainage. Per Meal/Nutrition Activity Record, Pt ate 50% lunch and 75% dinner yesterday 04/24. Per nurse note on 04/25, 2 large abdominal wound openings noted on abdomen, site packed and covered with abdominal dressing. Pt was sleeping at time of visit. Spoke to GEORGIE Mendez, Pt ate 25-50% breakfast and dinner today, poor appetite d/t abdominal pain, no nausea reported. Pending Wound care consultation. GEORGIE Mendez stated PT usual diet is CCHO in [place]. Recommend adding Glucerna TID to increase calories/protein needs and to support wound healing. Will continue monitor PO intake and wound healing progress. HT: 55 WT: 183 lb 4.8 oz (83.18 kg) ADJ BW: 67.47 kg BMI: 30.57 (Obese) GI: Nausea, Abdominal pain, Constipation, Large, Round, Tender BM: 04/25 x 2 I/O: 1960/100 (+1860) Skin: Warm, Dry, Elastic, Old Scar on Sacrum Wound: 2 large wound openings on abdomen Andrea: 14 Diet Order: [facility] Estimated Energy Needs: ( Pressure Ulcer Stage III-IV, ADJ BW) 7097-1172 kcals (33-35 kcals/ kg) 101-135 g Pro (1.5-2.0 g/kg) 7792-7224 ml (35-40 ml/kg) Current Diet Order/ Nutrition Support CCHO Pertinent Medications D5-0.45ns, Zinc Oxide Pertinent Labs 04/25: Hgb/Hct 12.0/35.0, Glucose 119 04/24: Hgb/Hct 12.1/36.5, [place] 3.2, Alb 3.3 Nutritional Hx/Data Height 1.65 m Height (Calculated Centimeters) 165.1 Current Weight (lbs) 83.007 kg Weight (Calculated Kilograms) 83.0 Weight (Calculated Grams) 31344.4 [place] Body Weight 57 kg % [place] Body Weight 146 Body Mass Index (BMI) 30.4 Weight Status Obese GI Symptoms GI Symptoms Nausea Constipation Last BM 04/25 x 2 Usual diet at home Carbs Contorlled diet at [facility] Skin Integrity/Comment: Skin: Warm, Dry, Elastic, Old Scar on Sacrum Wound: 2 large wound openings on abdomen Andrea: 14 Estimated Nutritional Goals BEE in Kcals: Adj wt of IBW Calories/Kcals/Kg 33-35 Kcals Calculated 5387-9923 Protein: Adj wt of IBW Protein g/k.5-2.0 Protein Calculated 101-135 Fluid: ml 3908-3841 ml (35-40 ml/kg) Nutritional Problem 2. Problem Problem Inadequate oral intake Etiology r/t abdominal pain Signs/Symptoms: aeb PO intake 25-50% on 04/25 per RN statement. 1. Problem Problem Increased calories and protein needs Etiology r/t wound healing Signs/Symptoms: aeb 2 large abdominal wound openings noted on abdomen Malnutrition Related to Morbid Obesity Malnutrition related to morbid obesity No Intervention/Recommendation Comments 1.Continue with CCHO diet as ordered. 2.Added Glucerna TID to increase calories/protein needs and to support wound healing (completed). 3.RN to encourage improved PO intake. Expected Outcomes/Goals Expected Outcomes/Goals 1.PO intake to meet 75% of nutritional needs. 2.Monitor PO intake, wt, nutrition related labs, and skin integrity to trend WNL. 3.F/U as moderate risk in 3-5 days, 04/28-04/30
[2019-04-27] MEDS: BIKTARVY PO SCH (16:20)
--- NOTE | 2019-04-27 16:22 | GI Progress Note ---
Subjective - Review of Systems Service Date: 04/27/19 Events since last encounter: no new events GI OBJECTIVE - Results Result Diagrams: 04/25/19 04:10 04/25/19 04:10 Recent Labs: Laboratory Last Values WBC 6.4 Th/cmm (4.8-10.8) 04/25/19 04:10 RBC 3.96 Mil/cmm (3.80-5.10) 04/25/19 04:10 Hgb 12.0 gm/dL (12-16) 04/25/19 04:10 Hct 35.0 % (41.0-60) L 04/25/19 04:10 MCV 88.5 fl (81-100) 04/25/19 04:10 MCH 30.2 pg (27.0-31.0) 04/25/19 04:10 MCHC Differential 34.1 pg (28.0-36.0) 04/25/19 04:10 RDW 13.0 % (11.5-20.0) 04/25/19 04:10 Plt Count 318 Th/cmm (150-400) 04/25/19 04:10 MPV 7.7 fl 04/25/19 04:10 Neutrophils % 80.8 % (40.0-80.0) H 04/25/19 04:10 Lymphocytes % 11.0 % (20.0-50.0) L 04/25/19 04:10 Monocytes % 6.1 % (2.0-10.0) 04/25/19 04:10 Eosinophils % 2.1 % (0.0-5.0) 04/25/19 04:10 Basophils % 0.0 % (0.0-2.0) 04/25/19 04:10 PT 10.2 SECONDS (9.5-11.5) 04/24/19 07:35 INR 0.98 (0.5-1.4) 04/24/19 07:35 Sodium 137 mEq/L (136-145) 04/25/19 04:10 Potassium 3.6 mEq/L (3.5-5.1) 04/25/19 04:10 Chloride 106 mEq/L (98-107) 04/25/19 04:10 Carbon Dioxide 23.6 mEq/L (21.0-31.0) 04/25/19 04:10 Anion Gap 11.0 (7.0-16.0) 04/25/19 04:10 BUN 10 mg/dL (7-25) 04/25/19 04:10 Creatinine 0.7 mg/dL (0.6-1.2) 04/25/19 04:10 Est GFR ( Amer) > 60.0 ml/min (>90) 04/25/19 04:10 Est GFR (Non-Af Amer) > 60.0 ml/min 04/25/19 04:10 BUN/Creatinine Ratio 14.3 04/25/19 04:10 Glucose 119 mg/dL (70-105) H 04/25/19 04:10 POC Glucose 106 MG/DL (70 - 105) H 04/27/19 11:57 Calcium 9.3 mg/dL (8.6-10.3) 04/25/19 04:10 Total Bilirubin 0.4 mg/dL (0.3-1.0) 04/24/19 07:35 AST 11 U/L (13-39) L 04/24/19 07:35 ALT 9 U/L (7-52) 04/24/19 07:35 Alkaline Phosphatase 77 U/L (34-104) 04/24/19 07:35 Troponin I 0.01 ng/mL (0.01-0.05) 04/24/19 07:35 Total Protein 7.3 gm/dL (6.0-8.3) 04/24/19 07:35 Albumin 3.3 gm/dL (3.7-5.3) L 04/24/19 07:35 Globulin 4.0 gm/dL 04/24/19 07:35 Albumin/Globulin Ratio 0.8 (1.0-1.8) L 04/24/19 07:35 Amylase 54 U/L (29-103) 04/24/19 07:35 Lipase 10 U/L (11-82) L 04/24/19 07:35 Urine Source RANDOM 04/24/19 12:14 Urine Color YELLOW 04/24/19 12:14 Urine Clarity CLOUDY (CLEAR) H 04/24/19 12:14 Urine pH 7.5 (4.6 - 8.0) 04/24/19 12:14 Ur Specific [place] 1.015 (1.005-1.030) 04/24/19 12:14 Urine Protein 30 mg/dL (NEGATIVE) H 04/24/19 12:14 Urine Glucose (UA) NEGATIVE mg/dL (NEGATIVE) 04/24/19 12:14 Urine Ketones NEGATIVE mg/dL (NEGATIVE) 04/24/19 12:14 Urine Blood MODERATE (NEGATIVE) H 04/24/19 12:14 Urine Nitrate NEGATIVE (NEGATIVE) 04/24/19 12:14 Urine Bilirubin NEGATIVE (NEGATIVE) 04/24/19 12:14 Urine Urobilinogen 0.2 E.U./dL (0.2 - 1.0) 04/24/19 12:14 Ur Leukocyte Esterase MODERATE (NEGATIVE) H 04/24/19 12:14 Urine RBC 2-5 /hpf (0-5) 04/24/19 12:14 Urine WBC >100 /hpf (0-5) H 04/24/19 12:14 Ur Epithelial Cells MODERATE /lpf (FEW) 04/24/19 12:14 Urine Bacteria 3+ /hpf (NONE SEEN) H 04/24/19 12:14 HIV 1&2 Antibody Screen POSITIVE (NEG) H 04/26/19 11:30 - Physical Exam Vitals and I&O: Vital Signs Temp 97.4 F 04/27/19 12:00 Pulse 57 04/27/19 12:00 Resp 15 04/27/19 12:00 BP 109/70 04/27/19 12:00 Pulse Ox 98 04/27/19 12:00 Intake & Output 04/26/19 04/27/19 04/27/19 18:59 06:59 18:59 Intake Total 1350 340 Balance 1350 340 Weight (lbs) 83.007 kg 83.007 kg Intake: Intake, IV Amount 1050 100 D5-0.45NS 1,000 ml @ 75 1000 mls/hr IV .[id number] [facility] Rx #:[id number] Piperacillin Sodium/ 50 100 Tazobact 3.375 gm In Sodium Chloride 0.9% 50 ml @ 100 mls/hr IV Q8HR [facility] Rx#:[id number] Oral 300 240 Other: # Voids 5 # Bowel Movements 4 Stool Characteristics Formed Formed Brown Brown Weight Source Bedscale Bedscale Active Medications: Current Medications Acetaminophen (Tylenol) 650 mg PO Q6HR PRN PRN Reason: Pain or Fever >101 Stop: 06/24/19 19:14 Acetaminophen/Hydrocodone Bitart ([place] 10 Mg/325 Mg) 1 tab PO Q6H PRN PRN Reason: Pain (Severe) Stop: 06/24/19 19:14 Last Admin: 04/27/19 12:52 Dose: 1 tab Acetaminophen/Hydrocodone Bitart ([place] 5mg/325mg) 1 tab PO Q6HR PRN PRN Reason: Pain (Moderate) Stop: 06/24/19 19:14 Last Admin: 04/27/19 06:50 Dose: 1 tab Al Hydrox/Mg Hydrox/Simethicone (Maalox) 30 ml PO Q6HR PRN PRN Reason: Constipation Stop: 06/24/19 19:14 Albuterol/Ipratropium (Duoneb Neb) 3 ml HHN Q4HR PRN PRN Reason: Shortness of Breath Stop: 06/24/19 19:14 Cholestyramine Resin (Questran) 4 gm PO DAILY [facility] Stop: 06/25/19 08:59 Last Admin: 04/27/19 08:24 Dose: 4 gm Diphenoxylate HCl/Atropine (Lomotil) 2 tab PO Q4HR PRN PRN Reason: UNK Stop: 06/24/19 19:14 Docusate Sodium (Colace) 100 mg PO BID [facility] Stop: 06/25/19 08:59 Last Admin: 04/27/19 08:26 Dose: Not Given Ergocalciferol (Vitamin D2) 50,000 iu PO QWEEK [facility] Stop: 06/25/19 08:59 Last Admin: 04/26/19 09:43 Dose: 50,000 iu Ferrous Sulfate (Iron) 325 mg PO DAILY [facility] Stop: 06/25/19 08:59 Last Admin: 04/27/19 08:24 Dose: 325 mg Dextrose/Sodium Chloride (D5-0.45ns) 1,000 mls @ 75 mls/hr IV .[id number] [facility] Stop: 06/23/19 13:15 Last Admin: 04/27/19 06:19 Dose: 75 mls/hr Piperacillin Sod/Tazobactam (Sod 3.375 gm/ Sodium Chloride) 50 mls @ 100 mls/ hr IV Q8HR [facility] Stop: 06/23/19 13:29 Last Admin: 04/27/19 12:53 Dose: 100 mls/hr Insulin Human Lispro (Humalog Insulin Sliding Scale) 0 units SUBQ ACHS [facility]; Protocol Stop: 06/25/19 07:29 Last Admin: 04/27/19 12:02 Dose: Not Given Lactulose (Cephulac) 20 gm PO BID [facility] Stop: 06/25/19 08:59 Last Admin: 04/27/19 08:26 Dose: Not Given Lorazepam (Ativan) 1 mg PO Q8HR PRN; Protocol PRN Reason: Anxiety Stop: 06/23/19 13:18 Last Admin: 04/26/19 20:35 Dose: 1 mg Lorazepam (Ativan) 0.5 mg PO Q4HR PRN; Protocol PRN Reason: Anxiety Stop: 06/24/19 19:16 Last Admin: 04/27/19 08:25 Dose: 0.5 mg Midodrine (Proamatine) 10 mg PO Q8HR [facility] Stop: 06/24/19 20:59 Last Admin: 04/27/19 12:52 Dose: 10 mg Mineral Oil (Mineral Oil 30 Ml) 30 ml PO DAILY PRN PRN Reason: Constipation Stop: 06/25/19 15:09 Morphine Sulfate (Morphine) 1 mg IVP Q4HR PRN PRN Reason: MILD PAIN Stop: 06/23/19 13:20 Last Admin: 04/26/19 19:52 Dose: 1 mg Morphine Sulfate (Morphine) 2 mg IVP Q4HR PRN PRN Reason: MODERATE PAIN Stop: 06/23/19 13:21 Morphine Sulfate (Morphine) 4 mg IVP Q4H PRN PRN Reason: Severe Pain Stop: 06/23/19 20:42 Last Admin: 04/25/19 18:06 Dose: 4 mg Ondansetron HCl (Zofran Odt) 4 mg PO Q4HR PRN PRN Reason: Nausea Patient Own Med- (Biktarvy 50-200-25) 1 PO QPM [facility] Stop: 06/25/19 16:59 Last Admin: 04/27/19 16:20 Dose: 1 Petrolatum (Zinc Oxide) 1 appl TP BID PRN PRN Reason: Abdominal Cramping Stop: 06/24/19 14:30 Polyethylene Glycol (Miralax) 17 gm PO DAILY [facility] Stop: 06/24/19 14:29 Last Admin: 04/27/19 08:26 Dose: Not Given Quetiapine Fumarate (Seroquel Xr) 200 mg PO HS [facility]; Protocol Stop: 06/24/19 20:59 Last Admin: 04/26/19 21:00 Dose: Not Given Rifaximin (Xifaxan) 550 mg PO BID [facility] Stop: 06/25/19 08:59 Last Admin: 04/27/19 16:20 Dose: 550 mg Verapamil HCl (Calan Sr) 120 mg PO DAILY [facility] Stop: 06/25/19 08:59 Last Admin: 04/27/19 08:23 Dose: Not Given Zolpidem Tartrate (Ambien) 5 mg PO HS [facility] Stop: 06/24/19 20:59 Last Admin: 04/26/19 21:30 Dose: Not Given General: Oriented x3 HEENT: Atraumatic, PERRLA, EOMI Neck: Supple, JVD, Thyromegaly Cardiovascular: Regular rate, Normal S1, Normal S2 Lungs: Clear to auscultation Assessment/Plan - Assessment Assessment: 1. fecal impaction 2. abdominal pain 3. abdominal wound dehiscence 4. Hx of uterine cancer 5. hx of HIV -wound care, consider surgical consult -check KUB in AM -Enemas, prn miralax -add PO mineral oil
--- NOTE | 2019-04-27 17:01 | Infectious Disease Prog Note ---
Infectious Disease Subjective - Review of Systems Service Date: 04/27/19 Subjective: hiv abd wound hpi- wound cx mrsa proteus on zosyn vanco ros no efrv o.e vss chets claer absd soft abs d wound dx hiv/abd wound Vital Signs - 24 hr 04/26/19 04/26/19 04/27/19 19:26 20:00 07:19 Temp 97.4 F HR 55 67 70 RR 18 18 18 BP 112/62 O2 Sat % 97 99 96 04/27/19 04/27/19 04/27/19 08:00 08:23 12:00 Temp 96.9 F 97.4 F HR 62 62 57 RR 19 15 BP 115/69 115/69 109/70 O2 Sat % 97 98 Microbiology 04/24/19 09:10 Abdomen - Final 04/24/19 09:10 Abdomen Aerobic Culture - Final Proteus Mirabilis Staph Aureus-Mrsa Isolated 04/24/19 12:14 Urine,Clean Catch Urine Culture - Final Proteus Vulgaris 04/24/19 15:30 Nares - Final NO MRSA ISOLATED 04/24/19 08:01 Blood - Preliminary NO GROWTH AFTER 48 HOURS 04/24/19 07:46 Blood - Preliminary NO GROWTH AFTER 48 HOURS Microbiology 04/24/19 09:10 Abdomen - Final 04/24/19 09:10 Abdomen Aerobic Culture - Final Proteus Mirabilis Staph Aureus-Mrsa Isolated 04/24/19 12:14 Urine,Clean Catch Urine Culture - Final Proteus Vulgaris 04/24/19 15:30 Nares - Final NO MRSA ISOLATED 04/24/19 08:01 Blood - Preliminary NO GROWTH AFTER 48 HOURS 04/24/19 07:46 Blood - Preliminary NO GROWTH AFTER 48 HOURS Laboratory Results - last 24 hr 04/27/19 04/27/19 04/27/19 06:35 11:57 16:22 POC Glucose 96 106 H 98 Current Medications Acetaminophen (Tylenol) 650 mg PO Q6HR PRN PRN Reason: Pain or Fever >101 Stop: 06/24/19 19:14 Acetaminophen/Hydrocodone Bitart ([place] 10 Mg/325 Mg) 1 tab PO Q6H PRN PRN Reason: Pain (Severe) Stop: 06/24/19 19:14 Last Admin: 04/27/19 12:52 Dose: 1 tab Acetaminophen/Hydrocodone Bitart ([place] 5mg/325mg) 1 tab PO Q6HR PRN PRN Reason: Pain (Moderate) Stop: 06/24/19 19:14 Last Admin: 04/27/19 06:50 Dose: 1 tab Al Hydrox/Mg Hydrox/Simethicone (Maalox) 30 ml PO Q6HR PRN PRN Reason: Constipation Stop: 06/24/19 19:14 Albuterol/Ipratropium (Duoneb Neb) 3 ml HHN Q4HR PRN PRN Reason: Shortness of Breath Stop: 06/24/19 19:14 Cholestyramine Resin (Questran) 4 gm PO DAILY [facility] Stop: 06/25/19 08:59 Last Admin: 04/27/19 08:24 Dose: 4 gm Diphenoxylate HCl/Atropine (Lomotil) 2 tab PO Q4HR PRN PRN Reason: UNK Stop: 06/24/19 19:14 Docusate Sodium (Colace) 100 mg PO BID [facility] Stop: 06/25/19 08:59 Last Admin: 04/27/19 16:27 Dose: Not Given Ergocalciferol (Vitamin D2) 50,000 iu PO QWEEK [facility] Stop: 06/25/19 08:59 Last Admin: 04/26/19 09:43 Dose: 50,000 iu Ferrous Sulfate (Iron) 325 mg PO DAILY [facility] Stop: 06/25/19 08:59 Last Admin: 04/27/19 08:24 Dose: 325 mg Dextrose/Sodium Chloride (D5-0.45ns) 1,000 mls @ 75 mls/hr IV .[id number] [facility] Stop: 06/23/19 13:15 Last Admin: 04/27/19 06:19 Dose: 75 mls/hr Piperacillin Sod/Tazobactam (Sod 3.375 gm/ Sodium Chloride) 50 mls @ 100 mls/ hr IV Q8HR [facility] Stop: 06/23/19 13:29 Last Admin: 04/27/19 12:53 Dose: 100 mls/hr Insulin Human Lispro (Humalog Insulin Sliding Scale) 0 units SUBQ ACHS [facility]; Protocol Stop: 06/25/19 07:29 Last Admin: 04/27/19 16:26 Dose: Not Given Lactulose (Cephulac) 20 gm PO BID [facility] Stop: 06/25/19 08:59 Last Admin: 04/27/19 16:27 Dose: Not Given Lorazepam (Ativan) 1 mg PO Q8HR PRN; Protocol PRN Reason: Anxiety Stop: 06/23/19 13:18 Last Admin: 04/26/19 20:35 Dose: 1 mg Lorazepam (Ativan) 0.5 mg PO Q4HR PRN; Protocol PRN Reason: Anxiety Stop: 06/24/19 19:16 Last Admin: 04/27/19 08:25 Dose: 0.5 mg Midodrine (Proamatine) 10 mg PO Q8HR [facility] Stop: 06/24/19 20:59 Last Admin: 04/27/19 12:52 Dose: 10 mg Mineral Oil (Mineral Oil 30 Ml) 30 ml PO DAILY PRN PRN Reason: Constipation Stop: 06/25/19 15:09 Miscellaneous (Vancomycin Iv Per Pharmacy) 1 ea MC PRN PRN PRN Reason: PROTOCOL Stop: 06/26/19 16:31 Morphine Sulfate (Morphine) 1 mg IVP Q4HR PRN PRN Reason: MILD PAIN Stop: 06/23/19 13:20 Last Admin: 04/26/19 19:52 Dose: 1 mg Morphine Sulfate (Morphine) 2 mg IVP Q4HR PRN PRN Reason: MODERATE PAIN Stop: 06/23/19 13:21 Morphine Sulfate (Morphine) 4 mg IVP Q4H PRN PRN Reason: Severe Pain Stop: 06/23/19 20:42 Last Admin: 04/25/19 18:06 Dose: 4 mg Ondansetron HCl (Zofran Odt) 4 mg PO Q4HR PRN PRN Reason: Nausea Patient Own Med- (Biktarvy 50-200-25) 1 PO QPM [facility] Stop: 06/25/19 16:59 Last Admin: 04/27/19 16:20 Dose: 1 Petrolatum (Zinc Oxide) 1 appl TP BID PRN PRN Reason: Abdominal Cramping Stop: 06/24/19 14:30 Polyethylene Glycol (Miralax) 17 gm PO DAILY [facility] Stop: 06/24/19 14:29 Last Admin: 04/27/19 08:26 Dose: Not Given Quetiapine Fumarate (Seroquel Xr) 200 mg PO HS [facility]; Protocol Stop: 06/24/19 20:59 Last Admin: 04/26/19 21:00 Dose: Not Given Rifaximin (Xifaxan) 550 mg PO BID [facility] Stop: 06/25/19 08:59 Last Admin: 04/27/19 16:20 Dose: 550 mg Verapamil HCl (Calan Sr) 120 mg PO DAILY [facility] Stop: 06/25/19 08:59 Last Admin: 04/27/19 08:23 Dose: Not Given Zolpidem Tartrate (Ambien) 5 mg PO HS [facility] Stop: 06/24/19 20:59 Last Admin: 04/26/19 21:30 Dose: Not Given Allergies Allergy/AdvReac Type Severity Reaction Status Date / Time No Known Allergies Allergy Verified 04/24/19 06:53 Infectious Disease Objective - Results Result Diagrams: 04/25/19 04:10 04/25/19 04:10 Recent Labs: Laboratory Last Values WBC 6.4 Th/cmm (4.8-10.8) 04/25/19 04:10 RBC 3.96 Mil/cmm (3.80-5.10) 04/25/19 04:10 Hgb 12.0 gm/dL (12-16) 04/25/19 04:10 Hct 35.0 % (41.0-60) L 04/25/19 04:10 MCV 88.5 fl (81-100) 04/25/19 04:10 MCH 30.2 pg (27.0-31.0) 04/25/19 04:10 MCHC Differential 34.1 pg (28.0-36.0) 04/25/19 04:10 RDW 13.0 % (11.5-20.0) 04/25/19 04:10 Plt Count 318 Th/cmm (150-400) 04/25/19 04:10 MPV 7.7 fl 04/25/19 04:10 Neutrophils % 80.8 % (40.0-80.0) H 04/25/19 04:10 Lymphocytes % 11.0 % (20.0-50.0) L 04/25/19 04:10 Monocytes % 6.1 % (2.0-10.0) 04/25/19 04:10 Eosinophils % 2.1 % (0.0-5.0) 04/25/19 04:10 Basophils % 0.0 % (0.0-2.0) 04/25/19 04:10 PT 10.2 SECONDS (9.5-11.5) 04/24/19 07:35 INR 0.98 (0.5-1.4) 04/24/19 07:35 Sodium 137 mEq/L (136-145) 04/25/19 04:10 Potassium 3.6 mEq/L (3.5-5.1) 04/25/19 04:10 Chloride 106 mEq/L (98-107) 04/25/19 04:10 Carbon Dioxide 23.6 mEq/L (21.0-31.0) 04/25/19 04:10 Anion Gap 11.0 (7.0-16.0) 04/25/19 04:10 BUN 10 mg/dL (7-25) 04/25/19 04:10 Creatinine 0.7 mg/dL (0.6-1.2) 04/25/19 04:10 Est GFR ( Amer) > 60.0 ml/min (>90) 04/25/19 04:10 Est GFR (Non-Af Amer) > 60.0 ml/min 04/25/19 04:10 BUN/Creatinine Ratio 14.3 04/25/19 04:10 Glucose 119 mg/dL (70-105) H 04/25/19 04:10 POC Glucose 106 MG/DL (70 - 105) H 04/27/19 11:57 Calcium 9.3 mg/dL (8.6-10.3) 04/25/19 04:10 Total Bilirubin 0.4 mg/dL (0.3-1.0) 04/24/19 07:35 AST 11 U/L (13-39) L 04/24/19 07:35 ALT 9 U/L (7-52) 04/24/19 07:35 Alkaline Phosphatase 77 U/L (34-104) 04/24/19 07:35 Troponin I 0.01 ng/mL (0.01-0.05) 04/24/19 07:35 Total Protein 7.3 gm/dL (6.0-8.3) 04/24/19 07:35 Albumin 3.3 gm/dL (3.7-5.3) L 04/24/19 07:35 Globulin 4.0 gm/dL 04/24/19 07:35 Albumin/Globulin Ratio 0.8 (1.0-1.8) L 04/24/19 07:35 Amylase 54 U/L (29-103) 04/24/19 07:35 Lipase 10 U/L (11-82) L 04/24/19 07:35 Urine Source RANDOM 04/24/19 12:14 Urine Color YELLOW 04/24/19 12:14 Urine Clarity CLOUDY (CLEAR) H 04/24/19 12:14 Urine pH 7.5 (4.6 - 8.0) 04/24/19 12:14 Ur Specific [place] 1.015 (1.005-1.030) 04/24/19 12:14 Urine Protein 30 mg/dL (NEGATIVE) H 04/24/19 12:14 Urine Glucose (UA) NEGATIVE mg/dL (NEGATIVE) 04/24/19 12:14 Urine Ketones NEGATIVE mg/dL (NEGATIVE) 04/24/19 12:14 Urine Blood MODERATE (NEGATIVE) H 04/24/19 12:14 Urine Nitrate NEGATIVE (NEGATIVE) 04/24/19 12:14 Urine Bilirubin NEGATIVE (NEGATIVE) 04/24/19 12:14 Urine Urobilinogen 0.2 E.U./dL (0.2 - 1.0) 04/24/19 12:14 Ur Leukocyte Esterase MODERATE (NEGATIVE) H 04/24/19 12:14 Urine RBC 2-5 /hpf (0-5) 04/24/19 12:14 Urine WBC >100 /hpf (0-5) H 04/24/19 12:14 Ur Epithelial Cells MODERATE /lpf (FEW) 04/24/19 12:14 Urine Bacteria 3+ /hpf (NONE SEEN) H 04/24/19 12:14 HIV 1&2 Antibody Screen POSITIVE (NEG) H 04/26/19 11:30 - Physical Exam Vitals and I&O: Vital Signs Temp 97.4 F 04/27/19 12:00 Pulse 57 04/27/19 12:00 Resp 15 04/27/19 12:00 BP 109/70 04/27/19 12:00 Pulse Ox 98 04/27/19 12:00 Intake & Output 04/26/19 04/27/19 04/27/19 18:59 06:59 18:59 Intake Total 1350 340 Balance 1350 340 Weight (lbs) 83.007 kg 83.007 kg Intake: Intake, IV Amount 1050 100 D5-0.45NS 1,000 ml @ 75 1000 mls/hr IV .[id number] [facility] Rx #:[id number] Piperacillin Sodium/ 50 100 Tazobact 3.375 gm In Sodium Chloride 0.9% 50 ml @ 100 mls/hr IV Q8HR [facility] Rx#:[id number] Oral 300 240 Other: # Voids 5 # Bowel Movements 4 Stool Characteristics Formed Formed Brown Brown Weight Source Bedscale Bedscale Active Medications: Current Medications Acetaminophen (Tylenol) 650 mg PO Q6HR PRN PRN Reason: Pain or Fever >101 Stop: 06/24/19 19:14 Acetaminophen/Hydrocodone Bitart ([place] 10 Mg/325 Mg) 1 tab PO Q6H PRN PRN Reason: Pain (Severe) Stop: 06/24/19 19:14 Last Admin: 04/27/19 12:52 Dose: 1 tab Acetaminophen/Hydrocodone Bitart ([place] 5mg/325mg) 1 tab PO Q6HR PRN PRN Reason: Pain (Moderate) Stop: 06/24/19 19:14 Last Admin: 04/27/19 06:50 Dose: 1 tab Al Hydrox/Mg Hydrox/Simethicone (Maalox) 30 ml PO Q6HR PRN PRN Reason: Constipation Stop: 06/24/19 19:14 Albuterol/Ipratropium (Duoneb Neb) 3 ml HHN Q4HR PRN PRN Reason: Shortness of Breath Stop: 06/24/19 19:14 Cholestyramine Resin (Questran) 4 gm PO DAILY [facility] Stop: 06/25/19 08:59 Last Admin: 04/27/19 08:24 Dose: 4 gm Diphenoxylate HCl/Atropine (Lomotil) 2 tab PO Q4HR PRN PRN Reason: UNK Stop: 06/24/19 19:14 Docusate Sodium (Colace) 100 mg PO BID [facility] Stop: 06/25/19 08:59 Last Admin: 04/27/19 16:27 Dose: Not Given Ergocalciferol (Vitamin D2) 50,000 iu PO QWEEK [facility] Stop: 06/25/19 08:59 Last Admin: 04/26/19 09:43 Dose: 50,000 iu Ferrous Sulfate (Iron) 325 mg PO DAILY [facility] Stop: 06/25/19 08:59 Last Admin: 04/27/19 08:24 Dose: 325 mg Dextrose/Sodium Chloride (D5-0.45ns) 1,000 mls @ 75 mls/hr IV .[id number] [facility] Stop: 06/23/19 13:15 Last Admin: 04/27/19 06:19 Dose: 75 mls/hr Piperacillin Sod/Tazobactam (Sod 3.375 gm/ Sodium Chloride) 50 mls @ 100 mls/ hr IV Q8HR [facility] Stop: 06/23/19 13:29 Last Admin: 04/27/19 12:53 Dose: 100 mls/hr Insulin Human Lispro (Humalog Insulin Sliding Scale) 0 units SUBQ ACHS [facility]; Protocol Stop: 06/25/19 07:29 Last Admin: 04/27/19 16:26 Dose: Not Given Lactulose (Cephulac) 20 gm PO BID [facility] Stop: 06/25/19 08:59 Last Admin: 04/27/19 16:27 Dose: Not Given Lorazepam (Ativan) 1 mg PO Q8HR PRN; Protocol PRN Reason: Anxiety Stop: 06/23/19 13:18 Last Admin: 04/26/19 20:35 Dose: 1 mg Lorazepam (Ativan) 0.5 mg PO Q4HR PRN; Protocol PRN Reason: Anxiety Stop: 06/24/19 19:16 Last Admin: 04/27/19 08:25 Dose: 0.5 mg Midodrine (Proamatine) 10 mg PO Q8HR [facility] Stop: 06/24/19 20:59 Last Admin: 04/27/19 12:52 Dose: 10 mg Mineral Oil (Mineral Oil 30 Ml) 30 ml PO DAILY PRN PRN Reason: Constipation Stop: 06/25/19 15:09 Miscellaneous (Vancomycin Iv Per Pharmacy) 1 ea MC PRN PRN PRN Reason: PROTOCOL Stop: 06/26/19 16:31 Morphine Sulfate (Morphine) 1 mg IVP Q4HR PRN PRN Reason: MILD PAIN Stop: 06/23/19 13:20 Last Admin: 04/26/19 19:52 Dose: 1 mg Morphine Sulfate (Morphine) 2 mg IVP Q4HR PRN PRN Reason: MODERATE PAIN Stop: 06/23/19 13:21 Morphine Sulfate (Morphine) 4 mg IVP Q4H PRN PRN Reason: Severe Pain Stop: 06/23/19 20:42 Last Admin: 04/25/19 18:06 Dose: 4 mg Ondansetron HCl (Zofran Odt) 4 mg PO Q4HR PRN PRN Reason: Nausea Patient Own Med- (Biktarvy 50-200-25) 1 PO QPM [facility] Stop: 06/25/19 16:59 Last Admin: 04/27/19 16:20 Dose: 1 Petrolatum (Zinc Oxide) 1 appl TP BID PRN PRN Reason: Abdominal Cramping Stop: 06/24/19 14:30 Polyethylene Glycol (Miralax) 17 gm PO DAILY [facility] Stop: 06/24/19 14:29 Last Admin: 04/27/19 08:26 Dose: Not Given Quetiapine Fumarate (Seroquel Xr) 200 mg PO HS [facility]; Protocol Stop: 06/24/19 20:59 Last Admin: 04/26/19 21:00 Dose: Not Given Rifaximin (Xifaxan) 550 mg PO BID [facility] Stop: 06/25/19 08:59 Last Admin: 04/27/19 16:20 Dose: 550 mg Verapamil HCl (Calan Sr) 120 mg PO DAILY [facility] Stop: 06/25/19 08:59 Last Admin: 04/27/19 08:23 Dose: Not Given Zolpidem Tartrate (Ambien) 5 mg PO HS [facility] Stop: 06/24/19 20:59 Last Admin: 04/26/19 21:30 Dose: Not Given Nutritional Asmnt/Malnutr-PDOC - Dietary Evaluation Malnutrition Findings (Please click <Entered> for more info): Nutritional Asmnt/Malnutrition Start: 04/25/19 15: 29 Text: Status: Complete Freq: Protocol: Document 04/25/19 15:29 RASHIDA (Rec: 04/25/19 15:35 [email or web address] [id number]) Nutritional Asmnt/Malnutrition Patient General Information Nutritional Screening Moderate Risk Consult Diagnosis Abdominal pain Pertinent Medical Hx/Surgical Hx Hypotension, COPD, Arrythmia, Anemia, Psychosis, Anxiety, Sepsis, Uterine cancer surgery 2005, Gastric bypass surgery, Bowel obstruction surgery Subjective Information IA/Consult: Andrea Score 12 Pt is a 58-year-old female from [facility] admitted on 04/24 c/o abdominal pain and wound redness with drainage. Per Meal/Nutrition Activity Record, Pt ate 50% lunch and 75% dinner yesterday 04/24. Per nurse note on 04/25, 2 large abdominal wound openings noted on abdomen, site packed and covered with abdominal dressing. Pt was sleeping at time of visit. Spoke to GEORGIE Mendez, Pt ate 25-50% breakfast and dinner today, poor appetite d/t abdominal pain, no nausea reported. Pending Wound care consultation. GEORGIE Mendez stated PT usual diet is [facility] in [facility]. Recommend adding Glucerna TID to increase calories/protein needs and to support wound healing. Will continue monitor PO intake and wound healing progress. HT: 55 WT: 183 lb 4.8 oz (83.18 kg) ADJ BW: 67.47 kg BMI: 30.57 (Obese) GI: Nausea, Abdominal pain, Constipation, Large, Round, Tender BM: 04/25 x 2 I/O: 1960/100 (+1860) Skin: Warm, Dry, Elastic, Old Scar on Sacrum Wound: 2 large wound openings on abdomen Andrea: 14 [facility] Estimated Energy Needs: ( Pressure Ulcer Stage III-IV, ADJ BW) 5765-5396 kcals (33-35 kcals/ kg) 101-135 g Pro (1.5-2.0 g/kg) 2097-3656 ml (35-40 ml/kg) Current Diet Order/ Nutrition Support CCHO Pertinent Medications D5-0.45ns, Zinc Oxide Pertinent Labs 04/25: Hgb/Hct 12.0/35.0, Glucose 119 04/24: Hgb/Hct 12.1/36.5, [place]ass 3.2, Alb 3.3 Nutritional Hx/Data Height 1.65 m Height (Calculated Centimeters) 165.1 Current Weight (lbs) 83.007 kg Weight (Calculated Kilograms) 83.0 Weight (Calculated Grams) 66588.4 [place] Body Weight 57 kg % [place] Body Weight 146 Body Mass Index (BMI) 30.4 Weight Status Obese GI Symptoms GI Symptoms Nausea Constipation Last BM 04/25 x 2 Usual diet at home Carbs Contorlled diet at assisted Skin Integrity/Comment: Skin: Warm, Dry, Elastic, Old Scar on Sacrum Wound: 2 large wound openings on abdomen Andrea: 14 Estimated Nutritional Goals BEE in Kcals: Adj wt of IBW Calories/Kcals/Kg 33-35 Kcals Calculated 6510-0153 Protein: Adj wt of IBW Protein g/k.5-2.0 Protein Calculated 101-135 Fluid: ml 1312-6072 ml (35-40 ml/kg) Nutritional Problem 2. Problem Problem Inadequate oral intake Etiology r/t abdominal pain Signs/Symptoms: aeb PO intake 25-50% on 04/25 per RN statement. 1. Problem Problem Increased calories and protein needs Etiology r/t wound healing Signs/Symptoms: aeb 2 large abdominal wound openings noted on abdomen Malnutrition Related to Morbid Obesity Malnutrition related to morbid obesity No Intervention/Recommendation Comments 1.Continue with CCHO diet as ordered. 2.Added Glucerna TID to increase calories/protein needs and to support wound healing (completed). 3.RN to encourage improved PO intake. Expected Outcomes/Goals Expected Outcomes/Goals 1.PO intake to meet 75% of nutritional needs. 2.Monitor PO intake, wt, nutrition related labs, and skin integrity to trend WNL. 3.F/U as moderate risk in 3-5 days, 04/28-04/30
[2019-04-28 05:22] LABS: HEMATOCRIT 35.3 % (41.0-60); HEMOGLOBIN 11.9 gm/dL (12-16); MEAN CELL VOLUME 89.2 fl (81-100); MEAN CORPUSCULAR HEMOGLOBIN 30.1 pg (27.0-31.0); MEAN CORPUSCULAR HGB CONC 33.7 pg (28.0-36.0); PLATELET COUNT 348 Th/cmm (150-400); RED BLOOD COUNT 3.96 Mil/cmm (3.80-5.10); RED CELL DISTRIBUTION WIDTH 13.2 % (11.5-20.0)
[2019-04-28 06:18] LABS: WHITE BLOOD COUNT 3.5 Th/cmm (4.8-10.8)
[2019-04-28] MEDS: Hydrocodone/APAP 5mg/325mg Tab PO PRN ×3 (06:19→19:47)
[2019-04-28 06:21] LABS: EOSINOPHIL 2 % (0-5); LYMPHOCYTE 28 % (20-50); MONOCYTE 6 % (2-10); NEUTROPHILS 64 % (40-80)
[2019-04-28] MEDS: INSULIN LISPRO SLIDING SCALE 100 UNITS/ML UNIT SUBQ SCH ×4 (07:46→20:42)
--- NOTE | 2019-04-28 08:00 | Progress Notes ---
DATE: 04/28/2019 SUBJECTIVE: Chart reviewed and the patient interviewed. Also discussed the patient's condition with the staff and reviewed records and labs. The patient's affect is brighter. The patient is interacting appropriately. The patient denies any intention to harm herself or others, but she is still in a depressed mood. The patient also is talking about her place and apartment where she is in the 2nd floor and she wants to move to the first floor, but at the same time, the patient needs more rehabilitation and she will go back to [facility] when medically stable. The patient still has episodes of anxiety, but she is taking Ativan p.r.n. with no major problems or complaints. [facility]# [id number]
--- NOTE | 2019-04-28 08:10 | GI Progress Note ---
Subjective - Review of Systems Service Date: 04/28/19 Events since last encounter: no new events GI OBJECTIVE - Results Result Diagrams: 04/28/19 05:10 04/25/19 04:10 Recent Labs: Laboratory Last Values WBC 3.5 Th/cmm (4.8-10.8) L 04/28/19 05:10 RBC 3.96 Mil/cmm (3.80-5.10) 04/28/19 05:10 Hgb 11.9 gm/dL (12-16) L 04/28/19 05:10 Hct 35.3 % (41.0-60) L 04/28/19 05:10 MCV 89.2 fl (81-100) 04/28/19 05:10 MCH 30.1 pg (27.0-31.0) 04/28/19 05:10 MCHC Differential 33.7 pg (28.0-36.0) 04/28/19 05:10 RDW 13.2 % (11.5-20.0) 04/28/19 05:10 Plt Count 348 Th/cmm (150-400) 04/28/19 05:10 MPV 7.0 fl 04/28/19 05:10 Add Manual Diff YES 04/28/19 05:10 Neutrophils % FUSING MACHINE OPERATOR 04/28/19 05:10 Lymphocytes % FUSING MACHINE OPERATOR 04/28/19 05:10 Monocytes % FUSING MACHINE OPERATOR 04/28/19 05:10 Eosinophils % FUSING MACHINE OPERATOR 04/28/19 05:10 Basophils % FUSING MACHINE OPERATOR 04/28/19 05:10 Neutrophils (Manual) 64 % (40-80) 04/28/19 05:10 Lymphocytes 28 % (20-50) 04/28/19 05:10 Monocytes 6 % (2-10) 04/28/19 05:10 Eosinophils 2 % (0-5) 04/28/19 05:10 PT 10.2 SECONDS (9.5-11.5) 04/24/19 07:35 INR 0.98 (0.5-1.4) 04/24/19 07:35 Sodium 137 mEq/L (136-145) 04/25/19 04:10 Potassium 3.6 mEq/L (3.5-5.1) 04/25/19 04:10 Chloride 106 mEq/L (98-107) 04/25/19 04:10 Carbon Dioxide 23.6 mEq/L (21.0-31.0) 04/25/19 04:10 Anion Gap 11.0 (7.0-16.0) 04/25/19 04:10 BUN 10 mg/dL (7-25) 04/25/19 04:10 Creatinine 0.7 mg/dL (0.6-1.2) 04/25/19 04:10 Est GFR ( Amer) > 60.0 ml/min (>90) 04/25/19 04:10 Est GFR (Non-Af Amer) > 60.0 ml/min 04/25/19 04:10 BUN/Creatinine Ratio 14.3 04/25/19 04:10 Glucose 119 mg/dL (70-105) H 04/25/19 04:10 POC Glucose 113 MG/DL (70 - 105) H 04/28/19 06:21 Calcium 9.3 mg/dL (8.6-10.3) 04/25/19 04:10 Total Bilirubin 0.4 mg/dL (0.3-1.0) 04/24/19 07:35 AST 11 U/L (13-39) L 04/24/19 07:35 ALT 9 U/L (7-52) 04/24/19 07:35 Alkaline Phosphatase 77 U/L (34-104) 04/24/19 07:35 Troponin I 0.01 ng/mL (0.01-0.05) 04/24/19 07:35 Total Protein 7.3 gm/dL (6.0-8.3) 04/24/19 07:35 Albumin 3.3 gm/dL (3.7-5.3) L 04/24/19 07:35 Globulin 4.0 gm/dL 04/24/19 07:35 Albumin/Globulin Ratio 0.8 (1.0-1.8) L 04/24/19 07:35 Amylase 54 U/L (29-103) 04/24/19 07:35 Lipase 10 U/L (11-82) L 04/24/19 07:35 Urine Source RANDOM 04/24/19 12:14 Urine Color YELLOW 04/24/19 12:14 Urine Clarity CLOUDY (CLEAR) H 04/24/19 12:14 Urine pH 7.5 (4.6 - 8.0) 04/24/19 12:14 Ur Specific [place] 1.015 (1.005-1.030) 04/24/19 12:14 Urine Protein 30 mg/dL (NEGATIVE) H 04/24/19 12:14 Urine Glucose (UA) NEGATIVE mg/dL (NEGATIVE) 04/24/19 12:14 Urine Ketones NEGATIVE mg/dL (NEGATIVE) 04/24/19 12:14 Urine Blood MODERATE (NEGATIVE) H 04/24/19 12:14 Urine Nitrate NEGATIVE (NEGATIVE) 04/24/19 12:14 Urine Bilirubin NEGATIVE (NEGATIVE) 04/24/19 12:14 Urine Urobilinogen 0.2 E.U./dL (0.2 - 1.0) 04/24/19 12:14 Ur Leukocyte Esterase MODERATE (NEGATIVE) H 04/24/19 12:14 Urine RBC 2-5 /hpf (0-5) 04/24/19 12:14 Urine WBC >100 /hpf (0-5) H 04/24/19 12:14 Ur Epithelial Cells MODERATE /lpf (FEW) 04/24/19 12:14 Urine Bacteria 3+ /hpf (NONE SEEN) H 04/24/19 12:14 HIV 1&2 Antibody Screen POSITIVE (NEG) H 04/26/19 11:30 - Physical Exam Vitals and I&O: Vital Signs Temp 97 F 04/28/19 04:00 Pulse 71 04/28/19 04:00 Resp 20 04/28/19 04:00 BP 101/66 04/28/19 04:00 Pulse Ox 98 04/28/19 04:00 Intake & Output 04/27/19 04/28/19 04/28/19 18:59 06:59 18:59 Intake Total 650 500 Output Total 4 Balance 646 500 Weight (lbs) 83.007 kg 84.935 kg Intake: Intake, IV Amount 50 300 Piperacillin Sodium/ 50 50 Tazobact 3.375 gm In Sodium Chloride 0.9% 50 ml @ 100 mls/hr IV Q8HR [facility] Rx#:[id number] Vancomycin HCl 1 gm In 250 Sodium Chloride 0.9% 250 ml @ 165 mls/hr IV Q8H [facility] Rx#:[id number] Oral 600 200 Output: Stool 4 Other: # Voids 4 3 # Bowel Movements 1 Weight Source Bedscale Bedscale Active Medications: Current Medications Acetaminophen (Tylenol) 650 mg PO Q6HR PRN PRN Reason: Pain or Fever >101 Stop: 06/24/19 19:14 Acetaminophen/Hydrocodone Bitart ([place] 10 Mg/325 Mg) 1 tab PO Q6H PRN PRN Reason: Pain (Severe) Stop: 06/24/19 19:14 Last Admin: 04/27/19 12:52 Dose: 1 tab Acetaminophen/Hydrocodone Bitart ([place] 5mg/325mg) 1 tab PO Q6HR PRN PRN Reason: Pain (Moderate) Stop: 06/24/19 19:14 Last Admin: 04/28/19 06:19 Dose: 1 tab Al Hydrox/Mg Hydrox/Simethicone (Maalox) 30 ml PO Q6HR PRN PRN Reason: Constipation Stop: 06/24/19 19:14 Albuterol/Ipratropium (Duoneb Neb) 3 ml HHN Q4HR PRN PRN Reason: Shortness of Breath Stop: 06/24/19 19:14 Cholestyramine Resin (Questran) 4 gm PO DAILY [facility] Stop: 06/25/19 08:59 Last Admin: 04/27/19 08:24 Dose: 4 gm Diphenoxylate HCl/Atropine (Lomotil) 2 tab PO Q4HR PRN PRN Reason: UNK Stop: 06/24/19 19:14 Docusate Sodium (Colace) 100 mg PO BID [facility] Stop: 06/25/19 08:59 Last Admin: 04/27/19 16:27 Dose: Not Given Ergocalciferol (Vitamin D2) 50,000 iu PO QWEEK [facility] Stop: 06/25/19 08:59 Last Admin: 04/26/19 09:43 Dose: 50,000 iu Ferrous Sulfate (Iron) 325 mg PO DAILY [facility] Stop: 06/25/19 08:59 Last Admin: 04/27/19 08:24 Dose: 325 mg Dextrose/Sodium Chloride (D5-0.45ns) 1,000 mls @ 75 mls/hr IV .[id number] [facility] Stop: 06/23/19 13:15 Last Admin: 04/27/19 06:19 Dose: 75 mls/hr Piperacillin Sod/Tazobactam (Sod 3.375 gm/ Sodium Chloride) 50 mls @ 100 mls/ hr IV Q8HR [facility] Stop: 06/23/19 13:29 Last Admin: 04/28/19 05:17 Dose: 100 mls/hr Vancomycin HCl 1 gm/ Sodium (Chloride) 250 mls @ 165 mls/hr IV Q8H [facility] Stop: 06/26/19 17:59 Last Admin: 04/28/19 03:02 Dose: 165 mls/hr Insulin Human Lispro (Humalog Insulin Sliding Scale) 0 units SUBQ ACHS [facility]; Protocol Stop: 06/25/19 07:29 Last Admin: 04/28/19 07:46 Dose: Not Given Lactulose (Cephulac) 20 gm PO BID [facility] Stop: 06/25/19 08:59 Last Admin: 04/27/19 16:27 Dose: Not Given Lorazepam (Ativan) 1 mg PO Q8HR PRN; Protocol PRN Reason: Anxiety Stop: 06/23/19 13:18 Last Admin: 04/26/19 20:35 Dose: 1 mg Lorazepam (Ativan) 0.5 mg PO Q4HR PRN; Protocol PRN Reason: Anxiety Stop: 06/24/19 19:16 Last Admin: 04/28/19 06:18 Dose: 0.5 mg Midodrine (Proamatine) 10 mg PO Q8HR [facility] Stop: 06/24/19 20:59 Last Admin: 04/28/19 05:00 Dose: 10 mg Mineral Oil (Mineral Oil 30 Ml) 30 ml PO DAILY PRN PRN Reason: Constipation Stop: 06/25/19 15:09 Miscellaneous (Vancomycin Iv Per Pharmacy) 1 ea [facility] PRN PRN PRN Reason: PROTOCOL Stop: 06/26/19 16:31 Morphine Sulfate (Morphine) 1 mg IVP Q4HR PRN PRN Reason: MILD PAIN Stop: 06/23/19 13:20 Last Admin: 04/26/19 19:52 Dose: 1 mg Morphine Sulfate (Morphine) 2 mg IVP Q4HR PRN PRN Reason: MODERATE PAIN Stop: 06/23/19 13:21 Morphine Sulfate (Morphine) 4 mg IVP Q4H PRN PRN Reason: Severe Pain Stop: 06/23/19 20:42 Last Admin: 04/25/19 18:06 Dose: 4 mg Ondansetron HCl (Zofran Odt) 4 mg PO Q4HR PRN PRN Reason: Nausea Patient Own Med- (Biktarvy 50-200-25) 1 PO QPM [facility] Stop: 06/25/19 16:59 Last Admin: 04/27/19 16:20 Dose: 1 Petrolatum (Zinc Oxide) 1 appl TP BID PRN PRN Reason: Abdominal Cramping Stop: 06/24/19 14:30 Polyethylene Glycol (Miralax) 17 gm PO DAILY [facility] Stop: 06/24/19 14:29 Last Admin: 04/27/19 08:26 Dose: Not Given Quetiapine Fumarate (Seroquel Xr) 200 mg PO HS [facility]; Protocol Stop: 06/24/19 20:59 Last Admin: 04/27/19 21:51 Dose: 200 mg Rifaximin (Xifaxan) 550 mg PO BID [facility] Stop: 06/25/19 08:59 Last Admin: 04/27/19 16:20 Dose: 550 mg Verapamil HCl (Calan Sr) 120 mg PO DAILY [facility] Stop: 06/25/19 08:59 Last Admin: 04/27/19 08:23 Dose: Not Given Wound Care/Dressing Products (Silvasorb) 1 appl TP DAILY [facility] Stop: 06/27/19 08:59 Zolpidem Tartrate (Ambien) 5 mg PO HS [facility] Stop: 06/24/19 20:59 Last Admin: 04/27/19 23:19 Dose: Not Given General: Oriented x3, Cooperative HEENT: Atraumatic, PERRLA, EOMI Neck: Supple, JVD Cardiovascular: Regular rate, Normal S1 Abdomen: Bowel sounds Assessment/Plan - Assessment Assessment: 1. fecal impaction 2. abdominal pain 3. abdominal wound dehiscence 4. Hx of uterine cancer 5. hx of HIV -wound care, consider surgical consult for open abdominal wounds -prn miralax -pt has been having good bowel movements since she has been here
[2019-04-28] MEDS: Ferrous Sulfate 325 MG TAB PO SCH (08:25)
[2019-04-28] MEDS: Verapamil HCl SR 120 mg Tab PO SCH (08:25)
[2019-04-28] MEDS: Multivitamin w/ Minerals Tab PO SCH (08:25)
[2019-04-28] MEDS: POLYETHYLENE GLYCOL 3350 17 GM PACK PO SCH (08:25)
[2019-04-28] MEDS: Lactulose 10 Gm/15 mL 30mL UDC PO SCH ×2 (08:25→17:01)
[2019-04-28] MEDS: Silver Antimicrobial Wound Gel 0.25 oz Tube TP SCH (08:32)
[2019-04-28 08:44] LABS: BUN - UREA NITROGEN 5 mg/dL (7-25); CALCIUM SERUM 9.1 mg/dL (8.6-10.3); CARBON DIOXIDE 20.8 mEq/L (21.0-31.0); CHLORIDE 111 mEq/L (98-107); CREATININE - SERUM 0.7 mg/dL (0.6-1.2); GFR AFRICAN-AMERICAN > 60.0 ml/min (>90); GFR NON AFRICAN-AMERICAN > 60.0 ml/min; GLUCOSE 92 mg/dL (70-105); SODIUM SERUM 141 mEq/L (136-145)
[2019-04-28 09:09] LABS: POTASSIUM SERUM 2.8 mEq/L (3.5-5.1)
[2019-04-28] MEDS ORDERED: Potassium Chloride 20 mEq ER Tab PO ONE (09:13)
[2019-04-28] MEDS ORDERED: KCL 20mEq/100mL Premix 20 MEQ/100 ML PIGGYBACK IV ONE (09:14)
[2019-04-28] MEDS ORDERED: POLYETHYLENE GLYCOL 3350 17 GM PACK PO PRN (15:25)
[2019-04-28] MEDS: BIKTARVY PO SCH (16:59)
[2019-04-28] MEDS: D5-0.45NS 1,000 ML IV SCH (17:00)
--- NOTE | 2019-04-28 17:27 | Internal Medicine Prog Note ---
Internal Medicine Subjective - Subjective Service Date: 04/28/19 (wants to increase morphine, states she is in severe pain ) Patient is:: awake, verbal Patient Complaints of:: other (abd pain ) Per staff patient has:: no adverse event, no episodes of fall, tolerating meds Internal Medicine Objective - Results Result Diagrams: 04/28/19 05:10 04/28/19 05:10 Recent Labs: Laboratory Last Values WBC 3.5 Th/cmm (4.8-10.8) L 04/28/19 05:10 RBC 3.96 Mil/cmm (3.80-5.10) 04/28/19 05:10 Hgb 11.9 gm/dL (12-16) L 04/28/19 05:10 Hct 35.3 % (41.0-60) L 04/28/19 05:10 MCV 89.2 fl (81-100) 04/28/19 05:10 MCH 30.1 pg (27.0-31.0) 04/28/19 05:10 MCHC Differential 33.7 pg (28.0-36.0) 04/28/19 05:10 RDW 13.2 % (11.5-20.0) 04/28/19 05:10 Plt Count 348 Th/cmm (150-400) 04/28/19 05:10 MPV 7.0 fl 04/28/19 05:10 Add Manual Diff YES 04/28/19 05:10 Neutrophils % DELIVERY AND [employer]IL [employer]TER 04/28/19 05:10 Lymphocytes % DELIVERY AND MAIL [employer]TER 04/28/19 05:10 Monocytes % DELIVERY AND MAIL [employer]TER 04/28/19 05:10 Eosinophils % DELIVERY AND MAIL SORTER 04/28/19 05:10 Basophils % DELIVERY AND MAIL SORTER 04/28/19 05:10 Neutrophils (Manual) 64 % (40-80) 04/28/19 05:10 Lymphocytes 28 % (20-50) 04/28/19 05:10 Monocytes 6 % (2-10) 04/28/19 05:10 Eosinophils 2 % (0-5) 04/28/19 05:10 PT 10.2 SECONDS (9.5-11.5) 04/24/19 07:35 INR 0.98 (0.5-1.4) 04/24/19 07:35 Sodium 141 mEq/L (136-145) 04/28/19 05:10 Potassium 2.8 mEq/L (3.5-5.1) L* 04/28/19 05:10 Chloride 111 mEq/L (98-107) H 04/28/19 05:10 Carbon Dioxide 20.8 mEq/L (21.0-31.0) L 04/28/19 05:10 Anion Gap 12.0 (7.0-16.0) 04/28/19 05:10 BUN 5 mg/dL (7-25) L 04/28/19 05:10 Creatinine 0.7 mg/dL (0.6-1.2) 04/28/19 05:10 Est GFR ( Amer) > 60.0 ml/min (>90) 04/28/19 05:10 Est GFR (Non-Af Amer) > 60.0 ml/min 04/28/19 05:10 BUN/Creatinine Ratio 7.1 04/28/19 05:10 Glucose 92 mg/dL (70-105) 04/28/19 05:10 POC Glucose 80 MG/DL (70 - 105) 04/28/19 16:43 Calcium 9.1 mg/dL (8.6-10.3) 04/28/19 05:10 Total Bilirubin 0.4 mg/dL (0.3-1.0) 04/24/19 07:35 AST 11 U/L (13-39) L 04/24/19 07:35 ALT 9 U/L (7-52) 04/24/19 07:35 Alkaline Phosphatase 77 U/L (34-104) 04/24/19 07:35 Troponin I 0.01 ng/mL (0.01-0.05) 04/24/19 07:35 Total Protein 7.3 gm/dL (6.0-8.3) 04/24/19 07:35 Albumin 3.3 gm/dL (3.7-5.3) L 04/24/19 07:35 Globulin 4.0 gm/dL 04/24/19 07:35 Albumin/Globulin Ratio 0.8 (1.0-1.8) L 04/24/19 07:35 Amylase 54 U/L (29-103) 04/24/19 07:35 Lipase 10 U/L (11-82) L 04/24/19 07:35 Urine Source RANDOM 04/24/19 12:14 Urine Color YELLOW 04/24/19 12:14 Urine Clarity CLOUDY (CLEAR) H 04/24/19 12:14 Urine pH 7.5 (4.6 - 8.0) 04/24/19 12:14 Ur Specific [place] 1.015 (1.005-1.030) 04/24/19 12:14 Urine Protein 30 mg/dL (NEGATIVE) H 04/24/19 12:14 Urine Glucose (UA) NEGATIVE mg/dL (NEGATIVE) 04/24/19 12:14 Urine Ketones NEGATIVE mg/dL (NEGATIVE) 04/24/19 12:14 Urine Blood MODERATE (NEGATIVE) H 04/24/19 12:14 Urine Nitrate NEGATIVE (NEGATIVE) 04/24/19 12:14 Urine Bilirubin NEGATIVE (NEGATIVE) 04/24/19 12:14 Urine Urobilinogen 0.2 E.U./dL (0.2 - 1.0) 04/24/19 12:14 Ur Leukocyte Esterase MODERATE (NEGATIVE) H 04/24/19 12:14 Urine RBC 2-5 /hpf (0-5) 04/24/19 12:14 Urine WBC >100 /hpf (0-5) H 04/24/19 12:14 Ur Epithelial Cells MODERATE /lpf (FEW) 04/24/19 12:14 Urine Bacteria 3+ /hpf (NONE SEEN) H 04/24/19 12:14 HIV 1&2 Antibody Screen POSITIVE (NEG) H 04/26/19 11:30 - Physical Exam Vitals and I&O: Vital Signs Temp 97.2 F 04/28/19 12:00 Pulse 62 04/28/19 12:00 Resp 20 04/28/19 12:00 BP 102/58 04/28/19 12:00 Pulse Ox 99 04/28/19 12:00 Intake & Output 04/27/19 04/28/19 04/28/19 18:59 06:59 18:59 Intake Total 650 1800 Output Total 4 Balance 646 1800 Weight (lbs) 183 lb 187 lb 4 oz Intake: Intake, IV Amount 50 1600 D5-0.45NS 1,000 ml @ 75 1000 mls/hr IV .[id number] [facility] Rx #:[id number] Piperacillin Sodium/ 50 100 Tazobact 3.375 gm In Sodium Chloride 0.9% 50 ml @ 100 mls/hr IV Q8HR [facility] Rx#:[id number] Vancomycin HCl 1 gm In 500 Sodium Chloride 0.9% 250 ml @ 165 mls/hr IV Q8H [facility] Rx#:[id number] Oral 600 200 Output: Stool 4 Other: # Voids 4 3 # Bowel Movements 1 Stool Characteristics Soft Liquid Brown Weight Source Bedscale Bedscale Active Medications: Current Medications Acetaminophen (Tylenol) 650 mg PO Q6HR PRN PRN Reason: Pain or Fever >101 Stop: 06/24/19 19:14 Acetaminophen/Hydrocodone Bitart ([place] 10 Mg/325 Mg) 1 tab PO Q6H PRN PRN Reason: Pain (Severe) Stop: 06/24/19 19:14 Last Admin: 04/27/19 12:52 Dose: 1 tab Acetaminophen/Hydrocodone Bitart ([place] 5mg/325mg) 1 tab PO Q6HR PRN PRN Reason: Pain (Moderate) Stop: 06/24/19 19:14 Last Admin: 04/28/19 13:21 Dose: 1 tab Al Hydrox/Mg Hydrox/Simethicone (Maalox) 30 ml PO Q6HR PRN PRN Reason: Constipation Stop: 06/24/19 19:14 Albuterol/Ipratropium (Duoneb Neb) 3 ml HHN Q4HR PRN PRN Reason: Shortness of Breath Stop: 06/24/19 19:14 Cholestyramine Resin (Questran) 4 gm PO DAILY [facility] Stop: 06/25/19 08:59 Last Admin: 04/28/19 08:25 Dose: 4 gm Diphenoxylate HCl/Atropine (Lomotil) 2 tab PO Q4HR PRN PRN Reason: UNK Stop: 06/24/19 19:14 Docusate Sodium (Colace) 100 mg PO BID [facility] Stop: 06/25/19 08:59 Last Admin: 04/28/19 17:00 Dose: Not Given Ergocalciferol (Vitamin D2) 50,000 iu PO QWEEK [facility] Stop: 06/25/19 08:59 Last Admin: 04/26/19 09:43 Dose: 50,000 iu Ferrous Sulfate (Iron) 325 mg PO DAILY [facility] Stop: 06/25/19 08:59 Last Admin: 04/28/19 08:25 Dose: 325 mg Gabapentin (Neurontin) 300 mg PO BID [facility] Stop: 06/28/19 08:59 Dextrose/Sodium Chloride (D5-0.45ns) 1,000 mls @ 75 mls/hr IV .[id number] [facility] Stop: 06/23/19 13:15 Last Admin: 04/28/19 17:00 Dose: 75 mls/hr Vancomycin HCl 1 gm/ Sodium (Chloride) 250 mls @ 165 mls/hr IV Q8H [facility] Stop: 06/26/19 17:59 Last Admin: 04/28/19 09:27 Dose: 165 mls/hr Levofloxacin (Levaquin Pb) 500 mg in 100 mls @ 100 mls/hr IV Q24HR [facility] Stop: 06/27/19 17:29 Insulin Human Lispro (Humalog Insulin Sliding Scale) 0 units SUBQ ACHS [facility]; Protocol Stop: 06/25/19 07:29 Last Admin: 04/28/19 16:58 Dose: Not Given Lactulose (Cephulac) 20 gm PO BID [facility] Stop: 06/25/19 08:59 Last Admin: 04/28/19 17:01 Dose: Not Given Lorazepam (Ativan) 1 mg PO Q8HR PRN; Protocol PRN Reason: Anxiety Stop: 06/23/19 13:18 Last Admin: 04/26/19 20:35 Dose: 1 mg Lorazepam (Ativan) 0.5 mg PO Q4HR PRN; Protocol PRN Reason: Anxiety Stop: 06/24/19 19:16 Last Admin: 04/28/19 13:21 Dose: 0.5 mg Midodrine (Proamatine) 10 mg PO Q8HR [facility] Stop: 06/24/19 20:59 Last Admin: 04/28/19 12:12 Dose: 10 mg Mineral Oil (Mineral Oil 30 Ml) 30 ml PO DAILY PRN PRN Reason: Constipation Stop: 06/25/19 15:09 Miscellaneous (Vancomycin Iv Per Pharmacy) 1 ea [facility] PRN PRN PRN Reason: PROTOCOL Stop: 06/26/19 16:31 Morphine Sulfate (Morphine) 1 mg IVP Q4HR PRN PRN Reason: MILD PAIN Stop: 06/23/19 13:20 Last Admin: 04/26/19 19:52 Dose: 1 mg Morphine Sulfate (Morphine) 2 mg IVP Q4HR PRN PRN Reason: MODERATE PAIN Stop: 06/23/19 13:21 Morphine Sulfate (Morphine) 4 mg IVP Q4H PRN PRN Reason: Severe Pain Stop: 06/23/19 20:42 Last Admin: 04/25/19 18:06 Dose: 4 mg Ondansetron HCl (Zofran Odt) 4 mg PO Q4HR PRN PRN Reason: Nausea Patient Own Med- (Biktarvy 50-200-25) 1 PO QPM [facility] Stop: 06/25/19 16:59 Last Admin: 04/28/19 16:59 Dose: 1 Petrolatum (Zinc Oxide) 1 appl TP BID PRN PRN Reason: Abdominal Cramping Stop: 06/24/19 14:30 Polyethylene Glycol (Miralax) 17 gm PO DAILY PRN PRN Reason: Constipation Stop: 06/24/19 14:29 Quetiapine Fumarate (Seroquel Xr) 200 mg PO HS [facility]; Protocol Stop: 06/24/19 20:59 Last Admin: 04/27/19 21:51 Dose: 200 mg Rifaximin (Xifaxan) 600 mg PO BID [facility] Stop: 06/25/19 08:59 Last Admin: 04/28/19 16:59 Dose: 600 mg Verapamil HCl (Calan Sr) 120 mg PO DAILY [facility] Stop: 06/25/19 08:59 Last Admin: 04/28/19 08:25 Dose: Not Given Wound Care/Dressing Products (Silvasorb) 1 appl TP DAILY [facility] Stop: 06/27/19 08:59 Last Admin: 04/28/19 08:32 Dose: 1 appl Zolpidem Tartrate (Ambien) 5 mg PO HS [facility] Stop: 06/24/19 20:59 Last Admin: 04/27/19 23:19 Dose: Not Given General: weak, alert HEENT: NC/AT, PERRLA Neck: Supple Lungs: CTAB Cardiovascular: RRR, Normal S1, Normal S2 Abdomen: non-tender Extremities: clear Neurological: bedbound Internal Medicine Assmt/Plan - Assessment Assessment: Wound open draining after Bowel obstruction surgery. with MRSA Abdominal pain. Back pain. Spinal stenosis. Depression. History of Uterine cancer surgery 2004. History of Gastric bypass surgery. History of Bowel obstruction surgery. History of Hypotension. History of Copd. History of Arrhythmia. History of Anemia. History of Psychosis. History of Anxiety. - Plan Plan: cont ivabx as per id am labs continue current plan of care Nutritional Asmnt/Malnutr-PDOC - Dietary Evaluation Malnutrition Findings (Please click <Entered> for more info): Nutritional Asmnt/Malnutrition Start: 04/25/19 15: 29 Text: Status: Complete Freq: Protocol: Document 04/25/19 15:29 RASHIDA (Rec: 04/25/19 15:35 RASHIDA [email or web address]) Nutritional Asmnt/Malnutrition Patient General Information Nutritional Screening Moderate Risk Consult Diagnosis Abdominal pain Pertinent Medical Hx/Surgical Hx Hypotension, COPD, Arrythmia, Anemia, Psychosis, Anxiety, Sepsis, Uterine cancer surgery 2004, Gastric bypass surgery, Bowel obstruction surgery Subjective Information IA/Consult: Andrea Score 12 Pt is a 58-year-old female from intermediate admitted on 04/24 c/o abdominal pain and wound redness with drainage. Per Meal/Nutrition Activity Record, Pt ate 50% lunch and 75% dinner yesterday 04/24. Per nurse note on 04/25, 2 large abdominal wound openings noted on abdomen, site packed and covered with abdominal dressing. Pt was sleeping at time of visit. Spoke to GEORGIE Mendez, Pt ate 25-50% breakfast and dinner today, poor appetite d/t abdominal pain, no nausea reported. Pending Wound care consultation. GEORGIE Mendez stated PT usual diet is CCHO in intermediate. Recommend adding Glucerna TID to increase calories/protein needs and to support wound healing. Will continue monitor PO intake and wound healing progress. HT: 55 WT: 183 lb 4.8 oz (83.18 kg) ADJ BW: 67.47 kg BMI: 30.57 (Obese) GI: Nausea, Abdominal pain, Constipation, Large, Round, Tender BM: 04/25 x 2 I/O: 1960/100 (+1860) Skin: Warm, Dry, Elastic, Old Scar on Sacrum Wound: 2 large wound openings on abdomen Andrea: 14 Diet Order: [facility] Estimated Energy Needs: ( Pressure Ulcer Stage III-IV, ADJ BW) 9287-1170 kcals (33-35 kcals/ kg) 101-135 g Pro (1.5-2.0 g/kg) 1000-5338 ml (35-40 ml/kg) Current Diet Order/ Nutrition Support [facility] Pertinent Medications D5-0.45ns, Zinc Oxide Pertinent Labs 04/25: Hgb/Hct 12.0/35.0, Glucose 119 04/24: Hgb/Hct 12.1/36.5, Potass 3.2, Alb 3.3 Nutritional Hx/Data Height 5 ft 5 in Height (Calculated Centimeters) 165.1 Current Weight (lbs) 183 lb Weight (Calculated Kilograms) 83.0 Weight (Calculated Grams) 51034.4 [place] Body Weight 57 kg % [place] Body Weight 146 Body Mass Index (BMI) 30.4 Weight Status Obese GI Symptoms GI Symptoms Nausea Constipation Last BM 04/25 x 2 Usual diet at home Carbs Contorlled diet at long-term Skin Integrity/Comment: Skin: Warm, Dry, Elastic, Old Scar on Sacrum Wound: 2 large wound openings on abdomen Andrea: 14 Estimated Nutritional Goals BEE in Kcals: Adj wt of IBW Calories/Kcals/Kg 33-35 Kcals Calculated 4333-9659 Protein: Adj wt of IBW Protein g/k.5-2.0 Protein Calculated 101-135 Fluid: ml 3373-4622 ml (35-40 ml/kg) Nutritional Problem 2. Problem Problem Inadequate oral intake Etiology r/t abdominal pain Signs/Symptoms: aeb PO intake 25-50% on 04/25 per RN statement. 1. Problem Problem Increased calories and protein needs Etiology r/t wound healing Signs/Symptoms: aeb 2 large abdominal wound openings noted on abdomen Malnutrition Related to Morbid Obesity Malnutrition related to morbid obesity No Intervention/Recommendation Comments 1.Continue with [facility] diet as ordered. 2.Added Glucerna TID to increase calories/protein needs and to support wound healing (completed). 3.RN to encourage improved PO intake. Expected Outcomes/Goals Expected Outcomes/Goals 1.PO intake to meet 75% of nutritional needs. 2.Monitor PO intake, wt, nutrition related labs, and skin integrity to trend WNL. 3.F/U as moderate risk in 3-5 days, 04/28-04/30
--- NOTE | 2019-04-28 17:29 | Infectious Disease Prog Note ---
Infectious Disease Subjective - Review of Systems Service Date: 04/28/19 Events since last encounter: cc neutropenia uti hpi- wbc decredes zosyn chnaged to levaquin ros no efrv o.e vss chest claer abd soft ext Vital Signs - 24 hr 04/27/19 04/27/19 04/28/19 19:32 20:00 00:00 Temp 96.9 F 96.3 F HR 74 97 52 RR 18 18 20 BP 95/54 100/58 O2 Sat % 96 98 97 04/28/19 04/28/19 04/28/19 04:00 08:00 08:18 Temp 97 F 97.5 F HR 71 67 77 RR 20 19 18 BP 101/66 113/70 O2 Sat % 98 98 96 04/28/19 04/28/19 08:25 12:00 Temp 97.2 F HR 67 62 RR 20 BP 113/70 102/58 O2 Sat % 99 Microbiology 04/24/19 09:10 Abdomen - Final 04/24/19 09:10 Abdomen Aerobic Culture - Final Proteus Mirabilis Staph Aureus-Mrsa Isolated 04/24/19 12:14 Urine,Clean Catch Urine Culture - Final Proteus Vulgaris 04/24/19 15:30 Nares - Final NO MRSA ISOLATED 04/24/19 08:01 Blood - Preliminary NO GROWTH AFTER 48 HOURS 04/24/19 07:46 Blood - Preliminary NO GROWTH AFTER 48 HOURS Diagnoses OBESITY, UNSPECIFIED (04/24/19) ESSENTIAL (PRIMARY) HYPERTENSION (04/24/19) CHRONIC OBSTRUCTIVE PULMONARY DISEASE, UNSPECIFIED (04/24/19) FECAL IMPACTION (04/24/19) FISTULA OF INTESTINE (04/24/19) SPINAL STENOSIS, SITE UNSPECIFIED (04/24/19) UNSPECIFIED HYDRONEPHROSIS (04/24/19) URINARY TRACT INFECTION, SITE NOT SPECIFIED (04/24/19) WEAKNESS (04/24/19) DISRUPTION OF EXTERNAL OPERATION (SURGICAL) WOUND, NEC, INIT (04/24/19) Current Medications Acetaminophen (Tylenol) 650 mg PO Q6HR PRN PRN Reason: Pain or Fever >101 Stop: 06/24/19 19:14 Acetaminophen/Hydrocodone Bitart ([place] 10 Mg/325 Mg) 1 tab PO Q6H PRN PRN Reason: Pain (Severe) Stop: 06/24/19 19:14 Last Admin: 04/27/19 12:52 Dose: 1 tab Acetaminophen/Hydrocodone Bitart ([place] 5mg/325mg) 1 tab PO Q6HR PRN PRN Reason: Pain (Moderate) Stop: 06/24/19 19:14 Last Admin: 04/28/19 13:21 Dose: 1 tab Al Hydrox/Mg Hydrox/Simethicone (Maalox) 30 ml PO Q6HR PRN PRN Reason: Constipation Stop: 06/24/19 19:14 Albuterol/Ipratropium (Duoneb Neb) 3 ml HHN Q4HR PRN PRN Reason: Shortness of Breath Stop: 06/24/19 19:14 Cholestyramine Resin (Questran) 4 gm PO DAILY PENDING SALE TO [facility] Stop: 06/25/19 08:59 Last Admin: 04/28/19 08:25 Dose: 4 gm Diphenoxylate HCl/Atropine (Lomotil) 2 tab PO Q4HR PRN PRN Reason: UNK Stop: 06/24/19 19:14 Docusate Sodium (Colace) 100 mg PO BID PENDING SALE TO [facility] Stop: 06/25/19 08:59 Last Admin: 04/28/19 17:00 Dose: Not Given Ergocalciferol (Vitamin D2) 50,000 iu PO QWEEK PENDING SALE TO [facility] Stop: 06/25/19 08:59 Last Admin: 04/26/19 09:43 Dose: 50,000 iu Ferrous Sulfate (Iron) 325 mg PO DAILY [facility] Stop: 06/25/19 08:59 Last Admin: 04/28/19 08:25 Dose: 325 mg Gabapentin (Neurontin) 300 mg PO BID PENDING SALE TO [facility] Stop: 06/28/19 08:59 Dextrose/Sodium Chloride (D5-0.45ns) 1,000 mls @ 75 mls/hr IV .[id number] PENDING SALE TO [facility] Stop: 06/23/19 13:15 Last Admin: 04/28/19 17:00 Dose: 75 mls/hr Vancomycin HCl 1 gm/ Sodium (Chloride) 250 mls @ 165 mls/hr IV Q8H PENDING SALE TO [facility] Stop: 06/26/19 17:59 Last Admin: 04/28/19 09:27 Dose: 165 mls/hr Levofloxacin (Levaquin Pb) 500 mg in 100 mls @ 100 mls/hr IV Q24HR PENDING SALE TO [facility] Stop: 06/27/19 17:29 Insulin Human Lispro (Humalog Insulin Sliding Scale) 0 units SUBQ ACHS [facility]; Protocol Stop: 06/25/19 07:29 Last Admin: 04/28/19 16:58 Dose: Not Given Lactulose (Cephulac) 20 gm PO BID [facility] Stop: 06/25/19 08:59 Last Admin: 04/28/19 17:01 Dose: Not Given Lorazepam (Ativan) 1 mg PO Q8HR PRN; Protocol PRN Reason: Anxiety Stop: 06/23/19 13:18 Last Admin: 04/26/19 20:35 Dose: 1 mg Lorazepam (Ativan) 0.5 mg PO Q4HR PRN; Protocol PRN Reason: Anxiety Stop: 06/24/19 19:16 Last Admin: 04/28/19 13:21 Dose: 0.5 mg Midodrine (Proamatine) 10 mg PO Q8HR PENDING SALE TO [facility] Stop: 06/24/19 20:59 Last Admin: 04/28/19 12:12 Dose: 10 mg Mineral Oil (Mineral Oil 30 Ml) 30 ml PO DAILY PRN PRN Reason: Constipation Stop: 06/25/19 15:09 Miscellaneous (Vancomycin Iv Per Pharmacy) 1 ea MC PRN PRN PRN Reason: PROTOCOL Stop: 06/26/19 16:31 Morphine Sulfate (Morphine) 1 mg IVP Q4HR PRN PRN Reason: MILD PAIN Stop: 06/23/19 13:20 Last Admin: 04/26/19 19:52 Dose: 1 mg Morphine Sulfate (Morphine) 2 mg IVP Q4HR PRN PRN Reason: MODERATE PAIN Stop: 06/23/19 13:21 Morphine Sulfate (Morphine) 4 mg IVP Q4H PRN PRN Reason: Severe Pain Stop: 06/23/19 20:42 Last Admin: 04/25/19 18:06 Dose: 4 mg Ondansetron HCl (Zofran Odt) 4 mg PO Q4HR PRN PRN Reason: Nausea Patient Own Med- (Biktarvy 50-200-25) 1 PO QPM PENDING SALE TO [facility] Stop: 06/25/19 16:59 Last Admin: 04/28/19 16:59 Dose: 1 Petrolatum (Zinc Oxide) 1 appl TP BID PRN PRN Reason: Abdominal Cramping Stop: 06/24/19 14:30 Polyethylene Glycol (Miralax) 17 gm PO DAILY PRN PRN Reason: Constipation Stop: 06/24/19 14:29 Quetiapine Fumarate (Seroquel Xr) 200 mg PO HS [facility]; Protocol Stop: 06/24/19 20:59 Last Admin: 04/27/19 21:51 Dose: 200 mg Rifaximin (Xifaxan) 600 mg PO BID PENDING SALE TO [facility] Stop: 06/25/19 08:59 Last Admin: 04/28/19 16:59 Dose: 600 mg Verapamil HCl (Calan Sr) 120 mg PO DAILY PENDING SALE TO [facility] Stop: 06/25/19 08:59 Last Admin: 04/28/19 08:25 Dose: Not Given Wound Care/Dressing Products (Silvasorb) 1 appl TP DAILY PENDING SALE TO [facility] Stop: 06/27/19 08:59 Last Admin: 04/28/19 08:32 Dose: 1 appl Zolpidem Tartrate (Ambien) 5 mg PO HS PENDING SALE TO [facility] Stop: 06/24/19 20:59 Last Admin: 04/27/19 23:19 Dose: Not Given Allergies Allergy/AdvReac Type Severity Reaction Status Date / Time No Known Allergies Allergy Verified 04/24/19 06:53 Subjective: hiv abd wound hpi- wound cx mrsa proteus on zosyn vanco ros no efrv o.e vss chets claer absd soft abs d wound dx hiv/abd wound Vital Signs - 24 hr 04/26/19 04/26/19 04/27/19 19:26 20:00 07:19 Temp 97.4 F HR 55 67 70 RR 18 18 18 BP 112/62 O2 Sat % 97 99 96 04/27/19 04/27/19 04/27/19 08:00 08:23 12:00 Temp 96.9 F 97.4 F HR 62 62 57 RR 19 15 BP 115/69 115/69 109/70 O2 Sat % 97 98 Microbiology 04/24/19 09:10 Abdomen - Final 04/24/19 09:10 Abdomen Aerobic Culture - Final Proteus Mirabilis Staph Aureus-Mrsa Isolated 04/24/19 12:14 Urine,Clean Catch Urine Culture - Final Proteus Vulgaris 04/24/19 15:30 Nares - Final NO MRSA ISOLATED 04/24/19 08:01 Blood - Preliminary NO GROWTH AFTER 48 HOURS 04/24/19 07:46 Blood - Preliminary NO GROWTH AFTER 48 HOURS Microbiology 04/24/19 09:10 Abdomen - Final 04/24/19 09:10 Abdomen Aerobic Culture - Final Proteus Mirabilis Staph Aureus-Mrsa Isolated 04/24/19 12:14 Urine,Clean Catch Urine Culture - Final Proteus Vulgaris 04/24/19 15:30 Nares - Final NO MRSA ISOLATED 04/24/19 08:01 Blood - Preliminary NO GROWTH AFTER 48 HOURS 04/24/19 07:46 Blood - Preliminary NO GROWTH AFTER 48 HOURS Laboratory Results - last 24 hr 04/27/19 04/27/19 04/27/19 06:35 11:57 16:22 POC Glucose 96 106 H 98 Current Medications Acetaminophen (Tylenol) 650 mg PO Q6HR PRN PRN Reason: Pain or Fever >101 Stop: 06/24/19 19:14 Acetaminophen/Hydrocodone Bitart ([place] 10 Mg/325 Mg) 1 tab PO Q6H PRN PRN Reason: Pain (Severe) Stop: 06/24/19 19:14 Last Admin: 04/27/19 12:52 Dose: 1 tab Acetaminophen/Hydrocodone Bitart ([place] 5mg/325mg) 1 tab PO Q6HR PRN PRN Reason: Pain (Moderate) Stop: 06/24/19 19:14 Last Admin: 04/27/19 06:50 Dose: 1 tab Al Hydrox/Mg Hydrox/Simethicone (Maalox) 30 ml PO Q6HR PRN PRN Reason: Constipation Stop: 06/24/19 19:14 Albuterol/Ipratropium (Duoneb Neb) 3 ml HHN Q4HR PRN PRN Reason: Shortness of Breath Stop: 06/24/19 19:14 Cholestyramine Resin (Questran) 4 gm PO DAILY [facility] Stop: 06/25/19 08:59 Last Admin: 04/27/19 08:24 Dose: 4 gm Diphenoxylate HCl/Atropine (Lomotil) 2 tab PO Q4HR PRN PRN Reason: UNK Stop: 06/24/19 19:14 Docusate Sodium (Colace) 100 mg PO BID [facility] Stop: 06/25/19 08:59 Last Admin: 04/27/19 16:27 Dose: Not Given Ergocalciferol (Vitamin D2) 50,000 iu PO QWEEK PENDING SALE TO [facility] Stop: 06/25/19 08:59 Last Admin: 04/26/19 09:43 Dose: 50,000 iu Ferrous Sulfate (Iron) 325 mg PO DAILY PENDING SALE TO [facility] Stop: 06/25/19 08:59 Last Admin: 04/27/19 08:24 Dose: 325 mg Dextrose/Sodium Chloride (D5-0.45ns) 1,000 mls @ 75 mls/hr IV .[id number] PENDING SALE TO [facility] Stop: 06/23/19 13:15 Last Admin: 04/27/19 06:19 Dose: 75 mls/hr Piperacillin Sod/Tazobactam (Sod 3.375 gm/ Sodium Chloride) 50 mls @ 100 mls/ hr IV Q8HR PENDING SALE TO [facility] Stop: 06/23/19 13:29 Last Admin: 04/27/19 12:53 Dose: 100 mls/hr Insulin Human Lispro (Humalog Insulin Sliding Scale) 0 units SUBQ ACHS PENDING SALE TO [facility]; Protocol Stop: 06/25/19 07:29 Last Admin: 04/27/19 16:26 Dose: Not Given Lactulose (Cephulac) 20 gm PO BID PENDING SALE TO [facility] Stop: 06/25/19 08:59 Last Admin: 04/27/19 16:27 Dose: Not Given Lorazepam (Ativan) 1 mg PO Q8HR PRN; Protocol PRN Reason: Anxiety Stop: 06/23/19 13:18 Last Admin: 04/26/19 20:35 Dose: 1 mg Lorazepam (Ativan) 0.5 mg PO Q4HR PRN; Protocol PRN Reason: Anxiety Stop: 06/24/19 19:16 Last Admin: 04/27/19 08:25 Dose: 0.5 mg Midodrine (Proamatine) 10 mg PO Q8HR PENDING SALE TO [facility] Stop: 06/24/19 20:59 Last Admin: 04/27/19 12:52 Dose: 10 mg Mineral Oil (Mineral Oil 30 Ml) 30 ml PO DAILY PRN PRN Reason: Constipation Stop: 06/25/19 15:09 Miscellaneous (Vancomycin Iv Per Pharmacy) 1 ea MC PRN PRN PRN Reason: PROTOCOL Stop: 06/26/19 16:31 Morphine Sulfate (Morphine) 1 mg IVP Q4HR PRN PRN Reason: MILD PAIN Stop: 06/23/19 13:20 Last Admin: 04/26/19 19:52 Dose: 1 mg Morphine Sulfate (Morphine) 2 mg IVP Q4HR PRN PRN Reason: MODERATE PAIN Stop: 06/23/19 13:21 Morphine Sulfate (Morphine) 4 mg IVP Q4H PRN PRN Reason: Severe Pain Stop: 06/23/19 20:42 Last Admin: 04/25/19 18:06 Dose: 4 mg Ondansetron HCl (Zofran Odt) 4 mg PO Q4HR PRN PRN Reason: Nausea Patient Own Med- (Biktarvy 50-200-25) 1 PO QPM [facility] Stop: 06/25/19 16:59 Last Admin: 04/27/19 16:20 Dose: 1 Petrolatum (Zinc Oxide) 1 appl TP BID PRN PRN Reason: Abdominal Cramping Stop: 06/24/19 14:30 Polyethylene Glycol (Miralax) 17 gm PO DAILY [facility] Stop: 06/24/19 14:29 Last Admin: 04/27/19 08:26 Dose: Not Given Quetiapine Fumarate (Seroquel Xr) 200 mg PO HS PENDING SALE TO [facility]; Protocol Stop: 06/24/19 20:59 Last Admin: 04/26/19 21:00 Dose: Not Given Rifaximin (Xifaxan) 550 mg PO BID PENDING SALE TO [facility] Stop: 06/25/19 08:59 Last Admin: 04/27/19 16:20 Dose: 550 mg Verapamil HCl (Calan Sr) 120 mg PO DAILY PENDING SALE TO [facility] Stop: 06/25/19 08:59 Last Admin: 04/27/19 08:23 Dose: Not Given Zolpidem Tartrate (Ambien) 5 mg PO HS PENDING SALE TO [facility] Stop: 06/24/19 20:59 Last Admin: 04/26/19 21:30 Dose: Not Given Allergies Allergy/AdvReac Type Severity Reaction Status Date / Time No Known Allergies Allergy Verified 04/24/19 06:53 Infectious Disease Objective - Results Result Diagrams: 04/28/19 05:10 04/28/19 05:10 Recent Labs: Laboratory Last Values WBC 3.5 Th/cmm (4.8-10.8) L 04/28/19 05:10 RBC 3.96 Mil/cmm (3.80-5.10) 04/28/19 05:10 Hgb 11.9 gm/dL (12-16) L 04/28/19 05:10 Hct 35.3 % (41.0-60) L 04/28/19 05:10 MCV 89.2 fl (81-100) 04/28/19 05:10 MCH 30.1 pg (27.0-31.0) 04/28/19 05:10 MCHC Differential 33.7 pg (28.0-36.0) 04/28/19 05:10 RDW 13.2 % (11.5-20.0) 04/28/19 05:10 Plt Count 348 Th/cmm (150-400) 04/28/19 05:10 MPV 7.0 fl 04/28/19 05:10 Add Manual Diff YES 04/28/19 05:10 Neutrophils % ADMINISTRATIVE PROFESSIONAL 04/28/19 05:10 Lymphocytes % ADMINISTRATIVE PROFESSIONAL 04/28/19 05:10 Monocytes % ADMINISTRATIVE PROFESSIONAL 04/28/19 05:10 Eosinophils % ADMINISTRATIVE PROFESSIONAL 04/28/19 05:10 Basophils % ADMINISTRATIVE PROFESSIONAL 04/28/19 05:10 Neutrophils (Manual) 64 % (40-80) 04/28/19 05:10 Lymphocytes 28 % (20-50) 04/28/19 05:10 Monocytes 6 % (2-10) 04/28/19 05:10 Eosinophils 2 % (0-5) 04/28/19 05:10 PT 10.2 SECONDS (9.5-11.5) 04/24/19 07:35 INR 0.98 (0.5-1.4) 04/24/19 07:35 Sodium 141 mEq/L (136-145) 04/28/19 05:10 Potassium 2.8 mEq/L (3.5-5.1) L* 04/28/19 05:10 Chloride 111 mEq/L (98-107) H 04/28/19 05:10 Carbon Dioxide 20.8 mEq/L (21.0-31.0) L 04/28/19 05:10 Anion Gap 12.0 (7.0-16.0) 04/28/19 05:10 BUN 5 mg/dL (7-25) L 04/28/19 05:10 Creatinine 0.7 mg/dL (0.6-1.2) 04/28/19 05:10 Est GFR ( Amer) > 60.0 ml/min (>90) 04/28/19 05:10 Est GFR (Non-Af Amer) > 60.0 ml/min 04/28/19 05:10 BUN/Creatinine Ratio 7.1 04/28/19 05:10 Glucose 92 mg/dL (70-105) 04/28/19 05:10 POC Glucose 80 MG/DL (70 - 105) 04/28/19 16:43 Calcium 9.1 mg/dL (8.6-10.3) 04/28/19 05:10 Total Bilirubin 0.4 mg/dL (0.3-1.0) 04/24/19 07:35 AST 11 U/L (13-39) L 04/24/19 07:35 ALT 9 U/L (7-52) 04/24/19 07:35 Alkaline Phosphatase 77 U/L (34-104) 04/24/19 07:35 Troponin I 0.01 ng/mL (0.01-0.05) 04/24/19 07:35 Total Protein 7.3 gm/dL (6.0-8.3) 04/24/19 07:35 Albumin 3.3 gm/dL (3.7-5.3) L 04/24/19 07:35 Globulin 4.0 gm/dL 04/24/19 07:35 Albumin/Globulin Ratio 0.8 (1.0-1.8) L 04/24/19 07:35 Amylase 54 U/L (29-103) 04/24/19 07:35 Lipase 10 U/L (11-82) L 04/24/19 07:35 Urine Source RANDOM 04/24/19 12:14 Urine Color YELLOW 04/24/19 12:14 Urine Clarity CLOUDY (CLEAR) H 04/24/19 12:14 Urine pH 7.5 (4.6 - 8.0) 04/24/19 12:14 Ur Specific Howard 1.015 (1.005-1.030) 04/24/19 12:14 Urine Protein 30 mg/dL (NEGATIVE) H 04/24/19 12:14 Urine Glucose (UA) NEGATIVE mg/dL (NEGATIVE) 04/24/19 12:14 Urine Ketones NEGATIVE mg/dL (NEGATIVE) 04/24/19 12:14 Urine Blood MODERATE (NEGATIVE) H 04/24/19 12:14 Urine Nitrate NEGATIVE (NEGATIVE) 04/24/19 12:14 Urine Bilirubin NEGATIVE (NEGATIVE) 04/24/19 12:14 Urine Urobilinogen 0.2 E.U./dL (0.2 - 1.0) 04/24/19 12:14 Ur Leukocyte Esterase MODERATE (NEGATIVE) H 04/24/19 12:14 Urine RBC 2-5 /hpf (0-5) 04/24/19 12:14 Urine WBC >100 /hpf (0-5) H 04/24/19 12:14 Ur Epithelial Cells MODERATE /lpf (FEW) 04/24/19 12:14 Urine Bacteria 3+ /hpf (NONE SEEN) H 04/24/19 12:14 HIV 1&2 Antibody Screen POSITIVE (NEG) H 04/26/19 11:30 - Physical Exam Vitals and I&O: Vital Signs Temp 97.2 F 04/28/19 12:00 Pulse 62 04/28/19 12:00 Resp 20 04/28/19 12:00 BP 102/58 04/28/19 12:00 Pulse Ox 99 04/28/19 12:00 Intake & Output 04/27/19 04/28/19 04/28/19 18:59 06:59 18:59 Intake Total 650 1800 Output Total 4 Balance 646 1800 Weight (lbs) 83.007 kg 84.935 kg Intake: Intake, IV Amount 50 1600 D5-0.45NS 1,000 ml @ 75 1000 mls/hr IV .[id number] [facility] Rx #:[id number] Piperacillin Sodium/ 50 100 Tazobact 3.375 gm In Sodium Chloride 0.9% 50 ml @ 100 mls/hr IV Q8HR [facility] Rx#:[id number] Vancomycin HCl 1 gm In 500 Sodium Chloride 0.9% 250 ml @ 165 mls/hr IV Q8H [facility] Rx#:[id number] Oral 600 200 Output: Stool 4 Other: # Voids 4 3 # Bowel Movements 1 Stool Characteristics Soft Liquid Brown Weight Source Bedscale Bedscale Active Medications: Current Medications Acetaminophen (Tylenol) 650 mg PO Q6HR PRN PRN Reason: Pain or Fever >101 Stop: 06/24/19 19:14 Acetaminophen/Hydrocodone Bitart ([place] 10 Mg/325 Mg) 1 tab PO Q6H PRN PRN Reason: Pain (Severe) Stop: 06/24/19 19:14 Last Admin: 04/27/19 12:52 Dose: 1 tab Acetaminophen/Hydrocodone Bitart ([place] 5mg/325mg) 1 tab PO Q6HR PRN PRN Reason: Pain (Moderate) Stop: 06/24/19 19:14 Last Admin: 04/28/19 13:21 Dose: 1 tab Al Hydrox/Mg Hydrox/Simethicone (Maalox) 30 ml PO Q6HR PRN PRN Reason: Constipation Stop: 06/24/19 19:14 Albuterol/Ipratropium (Duoneb Neb) 3 ml HHN Q4HR PRN PRN Reason: Shortness of Breath Stop: 06/24/19 19:14 Cholestyramine Resin (Questran) 4 gm PO DAILY PENDING SALE TO [facility] Stop: 06/25/19 08:59 Last Admin: 04/28/19 08:25 Dose: 4 gm Diphenoxylate HCl/Atropine (Lomotil) 2 tab PO Q4HR PRN PRN Reason: UNK Stop: 06/24/19 19:14 Docusate Sodium (Colace) 100 mg PO BID PENDING SALE TO [facility] Stop: 06/25/19 08:59 Last Admin: 04/28/19 17:00 Dose: Not Given Ergocalciferol (Vitamin D2) 50,000 iu PO QWEEK PENDING SALE TO [facility] Stop: 06/25/19 08:59 Last Admin: 04/26/19 09:43 Dose: 50,000 iu Ferrous Sulfate (Iron) 325 mg PO DAILY PENDING SALE TO [facility] Stop: 06/25/19 08:59 Last Admin: 04/28/19 08:25 Dose: 325 mg Dextrose/Sodium Chloride (D5-0.45ns) 1,000 mls @ 75 mls/hr IV .[id number] PENDING SALE TO [facility] Stop: 06/23/19 13:15 Last Admin: 04/28/19 17:00 Dose: 75 mls/hr Vancomycin HCl 1 gm/ Sodium (Chloride) 250 mls @ 165 mls/hr IV Q8H PENDING SALE TO [facility] Stop: 06/26/19 17:59 Last Admin: 04/28/19 09:27 Dose: 165 mls/hr Levofloxacin (Levaquin Pb) 500 mg in 100 mls @ 100 mls/hr IV Q24HR PENDING SALE TO [facility] Stop: 06/27/19 17:29 Insulin Human Lispro (Humalog Insulin Sliding Scale) 0 units SUBQ ACHS [facility]; Protocol Stop: 06/25/19 07:29 Last Admin: 04/28/19 16:58 Dose: Not Given Lactulose (Cephulac) 20 gm PO BID [facility] Stop: 06/25/19 08:59 Last Admin: 04/28/19 17:01 Dose: Not Given Lorazepam (Ativan) 1 mg PO Q8HR PRN; Protocol PRN Reason: Anxiety Stop: 06/23/19 13:18 Last Admin: 04/26/19 20:35 Dose: 1 mg Lorazepam (Ativan) 0.5 mg PO Q4HR PRN; Protocol PRN Reason: Anxiety Stop: 06/24/19 19:16 Last Admin: 04/28/19 13:21 Dose: 0.5 mg Midodrine (Proamatine) 10 mg PO Q8HR [facility] Stop: 06/24/19 20:59 Last Admin: 04/28/19 12:12 Dose: 10 mg Mineral Oil (Mineral Oil 30 Ml) 30 ml PO DAILY PRN PRN Reason: Constipation Stop: 06/25/19 15:09 Miscellaneous (Vancomycin Iv Per Pharmacy) 1 ea MC PRN PRN PRN Reason: PROTOCOL Stop: 06/26/19 16:31 Morphine Sulfate (Morphine) 1 mg IVP Q4HR PRN PRN Reason: MILD PAIN Stop: 06/23/19 13:20 Last Admin: 04/26/19 19:52 Dose: 1 mg Morphine Sulfate (Morphine) 2 mg IVP Q4HR PRN PRN Reason: MODERATE PAIN Stop: 06/23/19 13:21 Morphine Sulfate (Morphine) 4 mg IVP Q4H PRN PRN Reason: Severe Pain Stop: 06/23/19 20:42 Last Admin: 04/25/19 18:06 Dose: 4 mg Ondansetron HCl (Zofran Odt) 4 mg PO Q4HR PRN PRN Reason: Nausea Patient Own Med- (Biktarvy 50-200-25) 1 PO QPM PENDING SALE TO [facility] Stop: 06/25/19 16:59 Last Admin: 04/28/19 16:59 Dose: 1 Petrolatum (Zinc Oxide) 1 appl TP BID PRN PRN Reason: Abdominal Cramping Stop: 06/24/19 14:30 Polyethylene Glycol (Miralax) 17 gm PO DAILY PRN PRN Reason: Constipation Stop: 06/24/19 14:29 Quetiapine Fumarate (Seroquel Xr) 200 mg PO HS PENDING SALE TO [facility]; Protocol Stop: 06/24/19 20:59 Last Admin: 04/27/19 21:51 Dose: 200 mg Rifaximin (Xifaxan) 600 mg PO BID PENDING SALE TO [facility] Stop: 06/25/19 08:59 Last Admin: 04/28/19 16:59 Dose: 600 mg Verapamil HCl (Calan Sr) 120 mg PO DAILY PENDING SALE TO [facility] Stop: 06/25/19 08:59 Last Admin: 04/28/19 08:25 Dose: Not Given Wound Care/Dressing Products (Silvasorb) 1 appl TP DAILY PENDING SALE TO [facility] Stop: 06/27/19 08:59 Last Admin: 04/28/19 08:32 Dose: 1 appl Zolpidem Tartrate (Ambien) 5 mg PO HS PENDING SALE TO [facility] Stop: 06/24/19 20:59 Last Admin: 04/27/19 23:19 Dose: Not Given Nutritional Asmnt/Malnutr-PDOC - Dietary Evaluation Malnutrition Findings (Please click <Entered> for more info): Nutritional Asmnt/Malnutrition Start: 04/25/19 15: 29 Text: Status: Complete Freq: Protocol: Document 04/25/19 15:29 RASHIDA (Rec: 04/25/19 15:35 [email or web address] [id number]) Nutritional Asmnt/Malnutrition Patient General Information Nutritional Screening Moderate Risk Consult Diagnosis Abdominal pain Pertinent Medical Hx/Surgical Hx Hypotension, COPD, Arrythmia, Anemia, Psychosis, Anxiety, Sepsis, Uterine cancer surgery 2004, Gastric bypass surgery, Bowel obstruction surgery Subjective Information IA/Consult: Andrea Score 12 Pt is a 58-year-old [facility] 04/24 c/o abdominal pain and wound redness with drainage. Per Meal/Nutrition Activity Record, Pt ate 50% lunch and 75% dinner yesterday 04/24. Per nurse note on 04/25, 2 large abdominal wound openings noted on abdomen, site packed and covered with abdominal dressing. Pt was sleeping at time of visit. Spoke to GEORGIE Mendez, Pt ate 25-50% breakfast and dinner today, poor appetite d/t abdominal pain, no nausea reported. Pending Wound care consultation. GEORGIE Mnedez stated PT usual diet is CCHO in [facility]. Recommend adding Glucerna TID to increase calories/protein needs and to support wound healing. Will continue monitor PO intake and wound healing progress. HT: 55 WT: 183 lb 4.8 oz (83.18 kg) ADJ BW: 67.47 kg BMI: 30.57 (Obese) GI: Nausea, Abdominal pain, Constipation, Large, Round, Tender BM: 04/25 x 2 I/O: 1960/100 (+1860) Skin: Warm, Dry, Elastic, Old Scar on Sacrum Wound: 2 large wound openings on abdomen Andrea: 14 Diet Order: [facility] Estimated Energy Needs: ( Pressure Ulcer Stage III-IV, ADJ BW) 8645-9329 kcals (33-35 kcals/ kg) 101-135 g Pro (1.5-2.0 g/kg) 3884-3757 ml (35-40 ml/kg) Current Diet Order/ Nutrition Support CCHO Pertinent Medications D5-0.45ns, Zinc Oxide Pertinent Labs 04/25: Hgb/Hct 12.0/35.0, Glucose 119 04/24: Hgb/Hct 12.1/36.5, Potass 3.2, Alb 3.3 Nutritional Hx/Data Height 1.65 m Height (Calculated Centimeters) 165.1 Current Weight (lbs) 83.007 kg Weight (Calculated Kilograms) 83.0 Weight (Calculated Grams) 96396.4 Metz Body Weight 57 kg % Metz Body Weight 146 Body Mass Index (BMI) 30.4 Weight Status Obese GI Symptoms GI Symptoms Nausea Constipation Last BM 04/25 x 2 Usual diet at home Carbs [facility] Skin Integrity/Comment: Skin: Warm, Dry, Elastic, Old Scar on Sacrum Wound: 2 large wound openings on abdomen Andrea: 14 Estimated Nutritional Goals BEE in Kcals: Adj wt of IBW Calories/Kcals/Kg 33-35 Kcals Calculated 7843-6697 Protein: Adj wt of IBW Protein g/k.5-2.0 Protein Calculated 101-135 Fluid: ml 6593-0394 ml (35-40 ml/kg) Nutritional Problem 2. Problem Problem Inadequate oral intake Etiology r/t abdominal pain Signs/Symptoms: aeb PO intake 25-50% on 04/25 per RN statement. 1. Problem Problem Increased calories and protein needs Etiology r/t wound healing Signs/Symptoms: aeb 2 large abdominal wound openings noted on abdomen Malnutrition Related to Morbid Obesity Malnutrition related to morbid obesity No Intervention/Recommendation Comments 1.Continue with [facility] diet as ordered. 2.Added Glucerna TID to increase calories/protein needs and to support wound healing (completed). 3.RN to encourage improved PO intake. Expected Outcomes/Goals Expected Outcomes/Goals 1.PO intake to meet 75% of nutritional needs. 2.Monitor PO intake, wt, nutrition related labs, and skin integrity to trend WNL. 3.F/U as moderate risk in 3-5 days, 04/28-04/30
[2019-04-28] MEDS: Levofloxacin 500mg/100mL 500 MG/100 ML BAG IV SCH (20:43)
[2019-04-29] MEDS: Hydrocodone/APAP 5mg/325mg Tab PO PRN ×4 (03:17→21:47)
[2019-04-29 05:15] LABS: % EOSINOPHILS 3.1 % (0.0-5.0); % MONOCYTES 6.5 % (2.0-10.0); % NEUTROPHILS 71.4 % (40.0-80.0); EOSINOPHILE ABSOLUTE 0.1 Th/cmm (0.1-0.4); HEMATOCRIT 33.9 % (41.0-60); HEMOGLOBIN 11.7 gm/dL (12-16); LYMPHOCYTE ABSOLUTE 0.8 Th/cmm (1.5-3.0); MEAN CORPUSCULAR HEMOGLOBIN 30.3 pg (27.0-31.0); MEAN CORPUSCULAR HGB CONC 34.5 pg (28.0-36.0); MONOCYTE ABSOLUTE 0.3 Th/cmm (0.3-1.0); PLATELET COUNT 367 Th/cmm (150-400); RED BLOOD COUNT 3.85 Mil/cmm (3.80-5.10); RED CELL DISTRIBUTION WIDTH 13.3 % (11.5-20.0); WHITE BLOOD COUNT 4.2 Th/cmm (4.8-10.8)
[2019-04-29 05:26] LABS: ANION GAP 12.6 (7.0-16.0); BUN - UREA NITROGEN 5 mg/dL (7-25); CALCIUM SERUM 9.4 mg/dL (8.6-10.3); CHLORIDE 113 mEq/L (98-107); CREATININE - SERUM 0.8 mg/dL (0.6-1.2); GFR AFRICAN-AMERICAN > 60.0 ml/min (>90); GFR NON AFRICAN-AMERICAN > 60.0 ml/min; GLUCOSE 94 mg/dL (70-105); POTASSIUM SERUM 3.6 mEq/L (3.5-5.1); SODIUM SERUM 141 mEq/L (136-145)
[2019-04-29] MEDS: D5-0.45NS 1,000 ML IV SCH (05:42)
[2019-04-29] MEDS: INSULIN LISPRO SLIDING SCALE 100 UNITS/ML UNIT SUBQ SCH ×3 (06:30→16:47)
--- NOTE | 2019-04-29 07:20 | Progress Notes ---
DATE: 04/29/2019 SUBJECTIVE: Chart reviewed and the patient interviewed. Also discussed the patient's condition with the staff and reviewed records and labs. The patient is still severely anxious, but her affect is brighter. The patient seems to be less depressed. The patient is interacting more with peers and with others. She denies any intention to harm herself or others. The patient is also homicide. The patient is cooperative. ASSESSMENT: The patient seems to be less depressed. TREATMENT PLAN: We will continue to monitor behavior and her condition. Also, we will continue monitoring psychotropic medications and continue also to work on behavioral modification. The patient also can return to [facility] with plan to follow her up there. [facility]# [id number]
[2019-04-29] MEDS: Ferrous Sulfate 325 MG TAB PO SCH (08:08)
[2019-04-29] MEDS: Verapamil HCl SR 120 mg Tab PO SCH (08:09)
[2019-04-29] MEDS: Multivitamin w/ Minerals Tab PO SCH (08:09)
[2019-04-29] MEDS: Silver Antimicrobial Wound Gel 0.25 oz Tube TP SCH (08:09)
[2019-04-29] MEDS: Lactulose 10 Gm/15 mL 30mL UDC PO SCH ×2 (08:09→16:50)
[2019-04-29] MEDS ORDERED: Potassium Chloride 20 mEq ER Tab PO ONE (13:00)
--- NOTE | 2019-04-29 13:29 | Internal Medicine Prog Note ---
Internal Medicine Subjective - Subjective Service Date: 04/29/19 Patient seen and examined:: with staff Patient is:: awake, verbal Patient Complaints of:: other (abd pain ) Per staff patient has:: no adverse event, no episodes of fall, tolerating meds Internal Medicine Objective - Results Result Diagrams: 04/29/19 05:00 04/29/19 05:00 Recent Labs: Laboratory Last Values WBC 4.2 Th/cmm (4.8-10.8) L 04/29/19 05:00 RBC 3.85 Mil/cmm (3.80-5.10) 04/29/19 05:00 Hgb 11.7 gm/dL (12-16) L 04/29/19 05:00 Hct 33.9 % (41.0-60) L 04/29/19 05:00 MCV 88.0 fl (81-100) 04/29/19 05:00 MCH 30.3 pg (27.0-31.0) 04/29/19 05:00 MCHC Differential 34.5 pg (28.0-36.0) 04/29/19 05:00 RDW 13.3 % (11.5-20.0) 04/29/19 05:00 Plt Count 367 Th/cmm (150-400) 04/29/19 05:00 MPV 7.1 fl 04/29/19 05:00 Add Manual Diff YES 04/28/19 05:10 Neutrophils % 71.4 % (40.0-80.0) 04/29/19 05:00 Lymphocytes % 19.0 % (20.0-50.0) L 04/29/19 05:00 Monocytes % 6.5 % (2.0-10.0) 04/29/19 05:00 Eosinophils % 3.1 % (0.0-5.0) 04/29/19 05:00 Basophils % 0.0 % (0.0-2.0) 04/29/19 05:00 Neutrophils (Manual) 64 % (40-80) 04/28/19 05:10 Lymphocytes 28 % (20-50) 04/28/19 05:10 Monocytes 6 % (2-10) 04/28/19 05:10 Eosinophils 2 % (0-5) 04/28/19 05:10 PT 10.2 SECONDS (9.5-11.5) 04/24/19 07:35 INR 0.98 (0.5-1.4) 04/24/19 07:35 Sodium 141 mEq/L (136-145) 04/29/19 05:00 Potassium 3.6 mEq/L (3.5-5.1) 04/29/19 05:00 Chloride 113 mEq/L (98-107) H 04/29/19 05:00 Carbon Dioxide 19.0 mEq/L (21.0-31.0) L 04/29/19 05:00 Anion Gap 12.6 (7.0-16.0) 04/29/19 05:00 BUN 5 mg/dL (7-25) L 04/29/19 05:00 Creatinine 0.8 mg/dL (0.6-1.2) 04/29/19 05:00 Est GFR ( Amer) > 60.0 ml/min (>90) 04/29/19 05:00 Est GFR (Non-Af Amer) > 60.0 ml/min 04/29/19 05:00 BUN/Creatinine Ratio 6.3 04/29/19 05:00 Glucose 94 mg/dL (70-105) 04/29/19 05:00 POC Glucose 93 MG/DL (70 - 105) 04/29/19 11:32 Calcium 9.4 mg/dL (8.6-10.3) 04/29/19 05:00 Total Bilirubin 0.4 mg/dL (0.3-1.0) 04/24/19 07:35 AST 11 U/L (13-39) L 04/24/19 07:35 ALT 9 U/L (7-52) 04/24/19 07:35 Alkaline Phosphatase 77 U/L (34-104) 04/24/19 07:35 Troponin I 0.01 ng/mL (0.01-0.05) 04/24/19 07:35 Total Protein 7.3 gm/dL (6.0-8.3) 04/24/19 07:35 Albumin 3.3 gm/dL (3.7-5.3) L 04/24/19 07:35 Globulin 4.0 gm/dL 04/24/19 07:35 Albumin/Globulin Ratio 0.8 (1.0-1.8) L 04/24/19 07:35 Amylase 54 U/L (29-103) 04/24/19 07:35 Lipase 10 U/L (11-82) L 04/24/19 07:35 Urine Source RANDOM 04/24/19 12:14 Urine Color YELLOW 04/24/19 12:14 Urine Clarity CLOUDY (CLEAR) H 04/24/19 12:14 Urine pH 7.5 (4.6 - 8.0) 04/24/19 12:14 Ur Specific [place] 1.015 (1.005-1.030) 04/24/19 12:14 Urine Protein 30 mg/dL (NEGATIVE) H 04/24/19 12:14 Urine Glucose (UA) NEGATIVE mg/dL (NEGATIVE) 04/24/19 12:14 Urine Ketones NEGATIVE mg/dL (NEGATIVE) 04/24/19 12:14 Urine Blood MODERATE (NEGATIVE) H 04/24/19 12:14 Urine Nitrate NEGATIVE (NEGATIVE) 04/24/19 12:14 Urine Bilirubin NEGATIVE (NEGATIVE) 04/24/19 12:14 Urine Urobilinogen 0.2 E.U./dL (0.2 - 1.0) 04/24/19 12:14 Ur Leukocyte Esterase MODERATE (NEGATIVE) H 04/24/19 12:14 Urine RBC 2-5 /hpf (0-5) 04/24/19 12:14 Urine WBC >100 /hpf (0-5) H 04/24/19 12:14 Ur Epithelial Cells MODERATE /lpf (FEW) 04/24/19 12:14 Urine Bacteria 3+ /hpf (NONE SEEN) H 04/24/19 12:14 Vancomycin Trough 18.9 ug/mL (5-10) H 04/28/19 17:05 HIV 1&2 Antibody Screen POSITIVE (NEG) H 04/26/19 11:30 - Physical Exam Vitals and I&O: Vital Signs Temp 97.7 F 04/29/19 12:00 Pulse 66 04/29/19 12:00 Resp 17 04/29/19 12:00 BP 118/72 04/29/19 12:00 Pulse Ox 97 04/29/19 12:00 Intake & Output 04/28/19 04/29/19 04/29/19 18:59 06:59 18:59 Intake Total 250 2512.5 Balance 250 2512.5 Weight (lbs) 84.822 kg Intake: Intake, IV Amount 250 1552.5 D5-0.45NS 1,000 ml @ 75 952.5 mls/hr IV .[id number] [facility] Rx #:[id number] Levofloxacin 500mg/100mL 100 500 mg In 100 ml @ 100 mls/hr IV Q24HR [facility] Rx#: [id number] Vancomycin HCl 1 gm In 250 500 Sodium Chloride 0.9% 250 ml @ 165 mls/hr IV Q8H [facility] Rx#:[id number] Oral 960 Other: # Voids 5 # Bowel Movements 2 Stool Characteristics Soft Soft Soft Liquid Liquid Liquid Brown Brown Brown Weight Source Bedscale Active Medications: Current Medications Acetaminophen (Tylenol) 650 mg PO Q6HR PRN PRN Reason: Pain or Fever >101 Stop: 06/24/19 19:14 Acetaminophen/Hydrocodone Bitart ([place] 10 Mg/325 Mg) 1 tab PO Q6H PRN PRN Reason: Pain (Severe) Stop: 06/24/19 19:14 Last Admin: 04/27/19 12:52 Dose: 1 tab Acetaminophen/Hydrocodone Bitart ([place] 5mg/325mg) 1 tab PO Q6HR PRN PRN Reason: Pain (Moderate) Stop: 06/24/19 19:14 Last Admin: 04/29/19 09:04 Dose: 1 tab Al Hydrox/Mg Hydrox/Simethicone (Maalox) 30 ml PO Q6HR PRN PRN Reason: Constipation Stop: 06/24/19 19:14 Albuterol/Ipratropium (Duoneb Neb) 3 ml HHN Q4HR PRN PRN Reason: Shortness of Breath Stop: 06/24/19 19:14 Cholestyramine Resin (Questran) 4 gm PO DAILY [facility] Stop: 06/25/19 08:59 Last Admin: 04/29/19 08:08 Dose: 4 gm Diphenoxylate HCl/Atropine (Lomotil) 2 tab PO Q4HR PRN PRN Reason: UNK Stop: 06/24/19 19:14 Last Admin: 04/29/19 08:08 Dose: 2 tab Docusate Sodium (Colace) 100 mg PO BID [facility] Stop: 06/25/19 08:59 Last Admin: 04/29/19 08:09 Dose: Not Given Ergocalciferol (Vitamin D2) 50,000 iu PO QWEEK [facility] Stop: 06/25/19 08:59 Last Admin: 04/26/19 09:43 Dose: 50,000 iu Ferrous Sulfate (Iron) 325 mg PO DAILY [facility] Stop: 06/25/19 08:59 Last Admin: 04/29/19 08:08 Dose: 325 mg Gabapentin (Neurontin) 300 mg PO BID [facility] Stop: 06/28/19 08:59 Last Admin: 04/29/19 08:08 Dose: 300 mg Dextrose/Sodium Chloride (D5-0.45ns) 1,000 mls @ 75 mls/hr IV .[id number] [facility] Stop: 06/23/19 13:15 Last Admin: 04/29/19 05:42 Dose: 75 mls/hr Vancomycin HCl 1 gm/ Sodium (Chloride) 250 mls @ 165 mls/hr IV Q8H [facility] Stop: 06/26/19 17:59 Last Admin: 04/29/19 09:02 Dose: 165 mls/hr Levofloxacin (Levaquin Pb) 500 mg in 100 mls @ 100 mls/hr IV Q24HR [facility] Stop: 06/27/19 17:29 Last Infusion: 04/28/19 21:43 Dose: Infused Insulin Human Lispro (Humalog Insulin Sliding Scale) 0 units SUBQ ACHS [facility]; Protocol Stop: 06/25/19 07:29 Last Admin: 04/29/19 12:05 Dose: Not Given Lactulose (Cephulac) 20 gm PO BID [facility] Stop: 06/25/19 08:59 Last Admin: 04/29/19 08:09 Dose: Not Given Lorazepam (Ativan) 1 mg PO Q8HR PRN; Protocol PRN Reason: Anxiety Stop: 06/23/19 13:18 Last Admin: 04/26/19 20:35 Dose: 1 mg Lorazepam (Ativan) 0.5 mg PO Q4HR PRN; Protocol PRN Reason: Anxiety Stop: 06/24/19 19:16 Last Admin: 04/29/19 09:04 Dose: 0.5 mg Midodrine (Proamatine) 10 mg PO Q8HR [facility] Stop: 06/24/19 20:59 Last Admin: 04/29/19 12:15 Dose: 10 mg Mineral Oil (Mineral Oil 30 Ml) 30 ml PO DAILY PRN PRN Reason: Constipation Stop: 06/25/19 15:09 Miscellaneous (Vancomycin Iv Per Pharmacy) 1 ea MC PRN PRN PRN Reason: PROTOCOL Stop: 06/26/19 16:31 Morphine Sulfate (Morphine) 1 mg IVP Q4HR PRN PRN Reason: MILD PAIN Stop: 06/23/19 13:20 Last Admin: 04/26/19 19:52 Dose: 1 mg Morphine Sulfate (Morphine) 2 mg IVP Q4HR PRN PRN Reason: MODERATE PAIN Stop: 06/23/19 13:21 Morphine Sulfate (Morphine) 4 mg IVP Q4H PRN PRN Reason: Severe Pain Stop: 06/23/19 20:42 Last Admin: 04/25/19 18:06 Dose: 4 mg Ondansetron HCl (Zofran Odt) 4 mg PO Q4HR PRN PRN Reason: Nausea Patient Own Med- (Biktarvy 50-200-25) 1 PO QPM [facility] Stop: 06/25/19 16:59 Last Admin: 04/28/19 16:59 Dose: 1 Petrolatum (Zinc Oxide) 1 appl TP BID PRN PRN Reason: Abdominal Cramping Stop: 06/24/19 14:30 Polyethylene Glycol (Miralax) 17 gm PO DAILY PRN PRN Reason: Constipation Stop: 06/24/19 14:29 Quetiapine Fumarate (Seroquel Xr) 200 mg PO HS [facility]; Protocol Stop: 06/24/19 20:59 Last Admin: 04/28/19 20:42 Dose: 200 mg Rifaximin (Xifaxan) 600 mg PO BID [facility] Stop: 06/25/19 08:59 Last Admin: 04/29/19 08:09 Dose: 600 mg Verapamil HCl (Calan Sr) 120 mg PO DAILY [facility] Stop: 06/25/19 08:59 Last Admin: 04/29/19 08:09 Dose: Not Given Wound Care/Dressing Products (Silvasorb) 1 appl TP DAILY [facility] Stop: 06/27/19 08:59 Last Admin: 04/29/19 08:09 Dose: 1 appl Zolpidem Tartrate (Ambien) 5 mg PO HS [facility] Stop: 06/24/19 20:59 Last Admin: 04/28/19 20:42 Dose: 5 mg Physical Exam: Patient is less depressed, now interacting more with peers. General: weak, alert HEENT: NC/AT, PERRLA Neck: Supple Lungs: CTAB Cardiovascular: RRR, Normal S1, Normal S2 Abdomen: non-tender Extremities: clear Neurological: bedbound Internal Medicine Assmt/Plan - Assessment Assessment: Wound open draining after Bowel obstruction surgery. Abdominal pain. Back pain. Spinal stenosis. Depression. History of Uterine cancer surgery 2004. History of Gastric bypass surgery. History of Bowel obstruction surgery. History of Hypotension. History of Copd. History of Arrhythmia. History of Anemia. History of Psychosis. History of Anxiety. - Plan Plan: Continuation of care. GI consult. Monitor Vitals, Labs, Hemoglobin levels. Continue present meds as directed. Respiratory treatments and Pulmonary support prn. Supplemental Oxygen prn. Aspiration precaution. Deep suctioning prn. Monitor Diet/Nutritional support. Monitor mental status progression. Monitor behavioral health status. Pain Management. Local skin care and Wound care. Physical therapy prn. Occupational therapy prn . Fall precaution, frequent nursing rounds, and as needed restraints to prevent fall. Safety precaution. Supportive care. Continue collaborating with consulting specialists, case management and nursing team. Will Monitor patient and continue present care management. Nutritional Asmnt/Malnutr-PDOC - Dietary Evaluation Malnutrition Findings (Please click <Entered> for more info): Nutritional Asmnt/Malnutrition Start: 04/25/19 15: 29 Text: Status: Complete Freq: Protocol: Document 04/25/19 15:29 RASHIDA (Rec: 04/25/19 15:35 [email or web address] [id number]) Nutritional Asmnt/Malnutrition Patient General Information Nutritional Screening Moderate Risk Consult Diagnosis Abdominal pain Pertinent Medical Hx/Surgical Hx Hypotension, COPD, Arrythmia, Anemia, Psychosis, Anxiety, Sepsis, Uterine cancer surgery 2004, Gastric bypass surgery, Bowel obstruction surgery Subjective Information IA/Consult: Andrea Score 12 Pt is a 58-year-old female from skilled nursing admitted on 04/24 c/o abdominal pain and wound redness with drainage. Per Meal/Nutrition Activity Record, Pt ate 50% lunch and 75% dinner yesterday 04/24. Per nurse note on 04/25, 2 large abdominal wound openings noted on abdomen, site packed and covered with abdominal dressing. Pt was sleeping at time of visit. Spoke to GEORGIE Mendez, Pt ate 25-50% breakfast and dinner today, poor appetite d/t abdominal pain, no nausea reported. Pending Wound care consultation. GEORGIE Mendez stated PT usual diet is CCHO in skilled nursing. Recommend adding Glucerna TID to increase calories/protein needs and to support wound healing. Will continue monitor PO intake and wound healing progress. HT: 55 WT: 183 lb 4.8 oz (83.18 kg) ADJ BW: 67.47 kg BMI: 30.57 (Obese) GI: Nausea, Abdominal pain, Constipation, Large, Round, Tender BM: 04/25 x 2 I/O: 1960/100 (+1860) Skin: Warm, Dry, Elastic, Old Scar on Sacrum Wound: 2 large wound openings on abdomen Andrea: 14 Diet Order: [facility] Estimated Energy Needs: ( Pressure Ulcer Stage III-IV, ADJ BW) 3961-1918 kcals (33-35 kcals/ kg) 101-135 g Pro (1.5-2.0 g/kg) 0036-1513 ml (35-40 ml/kg) Current Diet Order/ Nutrition Support [facility] Pertinent Medications D5-0.45ns, Zinc Oxide Pertinent Labs 04/25: Hgb/Hct 12.0/35.0, Glucose 119 04/24: Hgb/Hct 12.1/36.5, Potass 3.2, Alb 3.3 Nutritional Hx/Data Height 1.65 m Height (Calculated Centimeters) 165.1 Current Weight (lbs) 83.007 kg Weight (Calculated Kilograms) 83.0 Weight (Calculated Grams) 24810.4 [place] Body Weight 57 kg % [place] Body Weight 146 Body Mass Index (BMI) 30.4 Weight Status Obese GI Symptoms GI Symptoms Nausea Constipation Last BM 04/25 x 2 Usual diet at home Carbs Contorlled diet at intermediate Skin Integrity/Comment: Skin: Warm, Dry, Elastic, Old Scar on Sacrum Wound: 2 large wound openings on abdomen Andrea: 14 Estimated Nutritional Goals BEE in Kcals: Adj wt of IBW Calories/Kcals/Kg 33-35 Kcals Calculated 0346-5176 Protein: Adj wt of IBW Protein g/k.5-2.0 Protein Calculated 101-135 Fluid: ml 7581-4613 ml (35-40 ml/kg) Nutritional Problem 2. Problem Problem Inadequate oral intake Etiology r/t abdominal pain Signs/Symptoms: aeb PO intake 25-50% on 04/25 per RN statement. 1. Problem Problem Increased calories and protein needs Etiology r/t wound healing Signs/Symptoms: aeb 2 large abdominal wound openings noted on abdomen Malnutrition Related to Morbid Obesity Malnutrition related to morbid obesity No Intervention/Recommendation Comments 1.Continue with CCHO diet as ordered. 2.Added Glucerna TID to increase calories/protein needs and to support wound healing (completed). 3.RN to encourage improved PO intake. Expected Outcomes/Goals Expected Outcomes/Goals 1.PO intake to meet 75% of nutritional needs. 2.Monitor PO intake, wt, nutrition related labs, and skin integrity to trend WNL. 3.F/U as moderate risk in 3-5 days, 04/28-04/30
[2019-04-29] MEDS ORDERED: Probiotic Screen MC PRN (13:59)
--- NOTE | 2019-04-29 15:46 | Infectious Disease Prog Note ---
Infectious Disease Subjective - Review of Systems Service Date: 04/29/19 Events since last encounter: cc mrsa infected wound hpi- pt schedule for dischrge with po levaquin iv vanco x 10 days ros no fevr o.e vs chest claer abd soft ewound healing ext pu Vital Signs - 24 hr 04/28/19 04/28/19 04/28/19 16:00 19:15 20:00 Temp 97.1 F 97.0 F HR 68 75 80 RR 20 18 18 BP 109/66 133/83 O2 Sat % 95 97 97 04/29/19 04/29/19 04/29/19 00:00 04:00 08:00 Temp 98.2 F 97.1 F 97.0 F HR 82 71 85 RR 18 19 17 BP 111/67 142/79 110/69 O2 Sat % 99 98 95 04/29/19 04/29/19 04/29/19 08:10 10:32 12:00 Temp 97.0 F 97.7 F HR 116 85 66 RR 18 17 17 BP 110/69 118/72 O2 Sat % 96 95 97 Microbiology 04/24/19 08:01 Blood - Final NO GROWTH AFTER 5 DAYS 04/24/19 07:46 Blood - Final NO GROWTH AFTER 5 DAYS 04/24/19 09:10 Abdomen - Final 04/24/19 09:10 Abdomen Aerobic Culture - Final Proteus Mirabilis Staph Aureus-Mrsa Isolated 04/24/19 12:14 Urine,Clean Catch Urine Culture - Final Proteus Vulgaris 04/24/19 15:30 Nares - Final NO MRSA ISOLATED Acetaminophen (Tylenol) 650 mg PO Q6HR PRN PRN Reason: Pain or Fever >101 Stop: 06/24/19 19:14 Acetaminophen/Hydrocodone Bitart (Beals 10 Mg/325 Mg) 1 tab PO Q6H PRN PRN Reason: Pain (Severe) Stop: 06/24/19 19:14 Last Admin: 04/27/19 12:52 Dose: 1 tab MAR Pain Scale Document 04/27/19 12:52 RADAME (Rec: 04/27/19 12:53 RADAME WOW-ED4) Pain Scale Pain Scale 7 Re-Assess: MAR Pain Scale Document 04/27/19 13:52 RADAME (Rec: 04/27/19 16:14 RADAME WOW-ED4) Pain Scale Pain Scale 2 Admin: 04/27/19 00:44 Dose: 1 tab MAR Pain Scale Document 04/27/19 00:44 TTEKIE (Rec: 04/27/19 00:44 TTEKIE JESUS-WOW- ICU2) Pain Scale Pain Scale 7 Re-Assess: MAR Pain Scale Document 04/27/19 01:44 TTEKIE (Rec: 04/27/19 02:13 TTEKIE JESUS-MS1) Pain Scale Pain Scale 3 Admin: 04/26/19 12:40 Dose: 1 tab MAR Pain Scale Document 04/26/19 12:40 [email or web address] (Rec: 04/26/19 12:40 MSI.[email or web address] JESUS-WOW -RT2) Pain Scale Pain Scale 8 Re-Assess: MAR Pain Scale Document 04/26/19 13:40 MSI.[email or web address] (Rec: 04/26/19 17:40 MSI.[email or web address] JESUS-WOW -RT2) Pain Scale Pain Scale 0 Admin: 04/26/19 06:00 Dose: 1 tab MAR Pain Scale Document 04/26/19 06:00 TTEKIE (Rec: 04/26/19 06:00 TTEKIE [id number] ) Pain Scale Pain Scale 8 Re-Assess: MAR Pain Scale Document 04/26/19 07:00 MSI.[email or web address] (Rec: 04/26/19 11:16 MSI.[email or web address] JESUS-WOW -RT2) Pain Scale Pain Scale 0 Acetaminophen/Hydrocodone Bitart (Beals 5mg/325mg) 1 tab PO Q6HR PRN PRN Reason: Pain (Moderate) Stop: 06/24/19 19:14 Last Admin: 04/29/19 15:14 Dose: 1 tab MAR Pain Scale Document 04/29/19 15:14 RADAME (Rec: 04/29/19 15:14 RADAME WOW-ED3) Pain Scale Pain Scale 6 Admin: 04/29/19 09:04 Dose: 1 tab MAR Pain Scale Document 04/29/19 09:04 RADAME (Rec: 04/29/19 09:04 RADAME WOW-ED3) Pain Scale Pain Scale 6 Re-Assess: MAR Pain Scale Document 04/29/19 10:04 RADAME (Rec: 04/29/19 15:43 RADAME WOW-ED3) Pain Scale Pain Scale 3 Admin: 04/29/19 03:17 Dose: 1 tab MAR Pain Scale Document 04/29/19 03:17 JPEREZ (Rec: 04/29/19 03:17 JPEREZ JESUS-WOW- ICU2) Pain Scale Pain Scale 7 Re-Assess: MAR Pain Scale Document 04/29/19 04:17 JPEREZ (Rec: 04/29/19 04:31 JPEREZ JESUS-MS6) Pain Scale Pain Scale 0 Admin: 04/28/19 19:47 Dose: 1 tab MAR Pain Scale Document 04/28/19 19:47 JPEREZ (Rec: 04/28/19 19:47 JPEREZ JESUS-WOW- ICU2) Pain Scale Pain Scale 7 Re-Assess: MAR Pain Scale Document 04/28/19 20:47 JPEREZ (Rec: 04/28/19 21:55 JPEREZ JESUS-MS6) Pain Scale Pain Scale 0 Admin: 04/28/19 13:21 Dose: 1 tab MAR Pain Scale Document 04/28/19 13:21 RADAME (Rec: 04/28/19 13:21 RADAME WOW-ED4) Pain Scale Pain Scale 6 Re-Assess: MAR Pain Scale Document 04/28/19 14:21 RADAME (Rec: 04/28/19 14:43 RADAME JESUS-MS1) Pain Scale Pain Scale 2 Admin: 04/28/19 06:19 Dose: 1 tab MAR Pain Scale Document 04/28/19 06:19 APEREZ (Rec: 04/28/19 06:19 APEREZ [id number] ) Pain Scale Pain Scale 8 Re-Assess: MAR Pain Scale Document 04/28/19 07:19 RADAME (Rec: 04/28/19 13:58 RADAME WOW-ED4) Pain Scale Pain Scale 1 Admin: 04/27/19 23:52 Dose: 1 tab MAR Pain Scale Document 04/27/19 23:52 APEREZ (Rec: 04/27/19 23:54 APEREZ [id number] ) Pain Scale Pain Scale 8 Re-Assess: MAR Pain Scale Document 04/28/19 00:52 APEREZ (Rec: 04/28/19 03:01 APEREZ [id number] ) Pain Scale Pain Scale 0 Admin: 04/27/19 18:56 Dose: 1 tab MAR Pain Scale Document 04/27/19 18:56 RADAME (Rec: 04/27/19 18:57 RADAME WOW-ED4) Pain Scale Pain Scale 6 Re-Assess: MAR Pain Scale Document 04/27/19 19:56 APEREZ (Rec: 04/27/19 23:17 APEREZ [id number] ) Pain Scale Pain Scale 0 Admin: 04/27/19 06:50 Dose: 1 tab MAR Pain Scale Document 04/27/19 06:50 TTEKIE (Rec: 04/27/19 06:51 TTEKIE JESUS-WOW- ICU2) Pain Scale Pain Scale 7 Re-Assess: MAR Pain Scale Document 04/27/19 07:50 RADAME (Rec: 04/27/19 10:03 RADAME WOW-ED4) Pain Scale Pain Scale 2 Al Hydrox/Mg Hydrox/Simethicone (Maalox) 30 ml PO Q6HR PRN PRN Reason: Constipation Stop: 06/24/19 19:14 Albuterol/Ipratropium (Duoneb Neb) 3 ml HHN Q4HR PRN PRN Reason: Shortness of Breath Stop: 06/24/19 19:14 Cholestyramine Resin (Questran) 4 gm PO DAILY MALDONADO Stop: 06/25/19 08:59 Last Admin: 04/29/19 08:08 Dose: 4 gm Admin: 04/28/19 08:25 Dose: 4 gm Admin: 04/27/19 08:24 Dose: 4 gm Admin: 04/26/19 08:26 Dose: 4 gm Diphenoxylate HCl/Atropine (Lomotil) 2 tab PO Q4HR PRN PRN Reason: UNK Stop: 06/24/19 19:14 Last Admin: 04/29/19 08:08 Dose: 2 tab Docusate Sodium (Colace) 100 mg PO BID MALDONADO Stop: 06/25/19 08:59 Last Admin: 04/29/19 08:09 Dose: Not Given Non-Admin Reason: Patient Refused Admin: 04/28/19 17:00 Dose: Not Given Non-Admin Reason: Patient Refused Admin: 04/28/19 08:25 Dose: Not Given Non-Admin Reason: Patient Refused Admin: 04/27/19 16:27 Dose: Not Given Non-Admin Reason: Patient Refused Admin: 04/27/19 08:26 Dose: Not Given Non-Admin Reason: Patient Refused Admin: 04/26/19 17:07 Dose: 100 mg Admin: 04/26/19 08:28 Dose: 100 mg Ergocalciferol (Vitamin D2) 50,000 iu PO QWEEK MALDONADO Stop: 06/25/19 08:59 Last Admin: 04/26/19 09:43 Dose: 50,000 iu Admin: 04/26/19 09:42 Dose: 50,000 iu Ferrous Sulfate (Iron) 325 mg PO DAILY MALDONADO Stop: 06/25/19 08:59 Last Admin: 04/29/19 08:08 Dose: 325 mg Admin: 04/28/19 08:25 Dose: 325 mg Admin: 04/27/19 08:24 Dose: 325 mg Admin: 04/26/19 08:29 Dose: 325 mg Gabapentin (Neurontin) 300 mg PO BID MALDONADO Stop: 06/28/19 08:59 Last Admin: 04/29/19 08:08 Dose: 300 mg Dextrose/Sodium Chloride (D5-0.45ns) 1,000 mls @ 75 mls/hr IV .[id number] MALDONADO Stop: 06/23/19 13:15 Last Admin: 04/29/19 05:42 Dose: 75 mls/hr MAR IV Start Time Document 04/29/19 05:42 BRANT (Rec: 04/29/19 05:42 BRANT LEE-WOW- ICU2) IV Start Time MAR IV Start Time 05:42 IV Site MAR IV Site Left Hand Medication Infusion/Titration Document 04/29/19 05:42 BRANT (Rec: 04/29/19 05:42 BRANT LEE-WOTarik- ICU2) Intake Cumulative Intake (Rx) 4952.5 Container Volume 1,000 Volume Adjustment/Waste 0 Dosing IV Rate 75 Increase/Decrease Started/Running Cumulative Dose Not Applicable Time Elapsed Time 66h 2m Infusion: 04/29/19 05:42 Dose: 75 mls/hr Medication Infusion/Titration Document 04/29/19 05:42 BRANT (Rec: 04/29/19 05:42 BRANT LEE-WOTarik- ICU2) Intake Titration Intake 952.5 Cumulative Intake 952.5 Cumulative Intake (Rx) 4952.5 Container Volume 0 Volume Adjustment/Waste 47.5 Dosing IV Rate 75 Increase/Decrease Infused Cumulative Dose Not Applicable Time Elapsed Time 66h 2m Admin: 04/28/19 17:00 Dose: 75 mls/hr MAR IV Start Time Document 04/28/19 17:00 RADAME (Rec: 04/28/19 17:00 RADAME WOW-ED4) IV Start Time [facility] IV Start Time 17:00 IV Site MAR IV Site Left Hand Medication Infusion/Titration Document 04/28/19 17:00 RADAME (Rec: 04/28/19 17:00 RADAME WOW-ED4) Intake Cumulative Intake (Rx) 4000 Container Volume 1,000 Volume Adjustment/Waste 0 Dosing IV Rate 75 Increase/Decrease Started/Running Cumulative Dose Not Applicable Time Elapsed Time 53h 20m Infusion: 04/27/19 19:39 Dose: 75 mls/hr Medication Infusion/Titration Document 04/27/19 19:39 RADAME (Rec: 04/28/19 17:00 RADAME WOW-ED4) Intake Titration Intake 1,000 Cumulative Intake 1,000 Cumulative Intake (Rx) 4000 Container Volume 0 Volume Adjustment/Waste 0 Dosing IV Rate 75 Increase/Decrease Infused Cumulative Dose Not Applicable Time Elapsed Time 53h 20m Admin: 04/27/19 06:19 Dose: 75 mls/hr MAR IV Start Time Document 04/27/19 06:19 TTEKIE (Rec: 04/27/19 06:20 TTEKIE JESUS-WOW- ICU2) IV Start Time [facility] IV Start Time 06:19 IV Site MAR IV Site Left Hand Medication Infusion/Titration Document 04/27/19 06:19 TTEKIE (Rec: 04/27/19 06:20 TTEKIE JESUS-WOW- ICU2) Intake Cumulative Intake (Rx) 3000 Container Volume 1,000 Volume Adjustment/Waste 0 Dosing IV Rate 75 Increase/Decrease Started/Running Cumulative Dose Not Applicable Time Elapsed Time 40h 0m Infusion: 04/26/19 07:21 Dose: 75 mls/hr Medication Infusion/Titration Document 04/26/19 07:21 TTEKIE (Rec: 04/27/19 06:20 TTEKIE JESUS-WOW- ICU2) Intake Titration Intake 1,000 Cumulative Intake 1,000 Cumulative Intake (Rx) 3000 Container Volume 0 Volume Adjustment/Waste 0 Dosing IV Rate 75 Increase/Decrease Infused Cumulative Dose Not Applicable Time Elapsed Time 40h 0m Admin: 04/25/19 18:01 Dose: 75 mls/hr MAR IV Start Time Document 04/25/19 18:01 GYUN (Rec: 04/25/19 18:01 GYUN WO-ED4) IV Start Time MAR IV Start Time 18:01 IV Site MAR IV Site Left Hand Medication Infusion/Titration Document 04/25/19 18:01 GYUN (Rec: 04/25/19 18:01 GYUN WO-ED4) Intake Cumulative Intake (Rx) 2000 Container Volume 1,000 Volume Adjustment/Waste 0 Dosing IV Rate 75 Increase/Decrease Started/Running Cumulative Dose Not Applicable Time Elapsed Time 26h 40m Infusion: 04/25/19 17:31 Dose: 75 mls/hr Medication Infusion/Titration Document 04/25/19 17:31 GYUN (Rec: 04/25/19 18:01 GYUN WO-ED4) Intake Titration Intake 1,000 Cumulative Intake 1,000 Cumulative Intake (Rx) 2000 Container Volume 0 Volume Adjustment/Waste 0 Dosing IV Rate 75 Increase/Decrease Infused Cumulative Dose Not Applicable Time Elapsed Time 26h 40m Admin: 04/25/19 04:11 Dose: 75 mls/hr MAR IV Start Time Document 04/25/19 04:11 JPEREZ (Rec: 04/25/19 04:11 JPEREZ WO-ED4) IV Start Time MAR IV Start Time 04:11 IV Site MAR IV Site Left Hand Medication Infusion/Titration Document 04/25/19 04:11 JPEREZ (Rec: 04/25/19 04:11 JPEREZ WO-ED4) Intake Cumulative Intake (Rx) 1000 Container Volume 1,000 Volume Adjustment/Waste 0 Dosing IV Rate 75 Increase/Decrease Started/Running Cumulative Dose Not Applicable Time Elapsed Time 13h 20m Infusion: 04/25/19 03:34 Dose: 75 mls/hr Medication Infusion/Titration Document 04/25/19 03:34 JPEREZ (Rec: 04/25/19 04:11 JPEREZ WO-ED4) Intake Titration Intake 1,000 Cumulative Intake 1,000 Cumulative Intake (Rx) 1000 Container Volume 0 Volume Adjustment/Waste 0 Dosing IV Rate 75 Increase/Decrease Infused Cumulative Dose Not Applicable Time Elapsed Time 13h 20m Admin: 04/24/19 14:14 Dose: 75 mls/hr MAR IV Start Time Document 04/24/19 14:14 GYUN (Rec: 04/24/19 14:14 GYUN [id number]) IV Start Time MAR IV Start Time 14:14 IV Site MAR IV Site Left Hand Medication Infusion/Titration Document 04/24/19 14:14 GYUN (Rec: 04/24/19 14:14 GYUN [id number]) Intake Container Volume 1,000 Volume Adjustment/Waste 0 Dosing IV Rate 75 Increase/Decrease Started Cumulative Dose Not Applicable Time Elapsed Time 0m Vancomycin HCl 1 gm/ Sodium (Chloride) 250 mls @ 165 mls/hr IV Q8H MALDONADO Stop: 06/26/19 17:59 Last Admin: 04/29/19 09:02 Dose: 165 mls/hr MAR IV Start Time Document 04/29/19 09:02 RADAME (Rec: 04/29/19 09:02 RADAME WO-ED3) IV Start Time MAR IV Start Time 09:02 IV Site MAR IV Site Right Hand Medication Infusion/Titration Document 04/29/19 09:02 RADAME (Rec: 04/29/19 09:02 RADAME WOW-ED3) Intake Cumulative Intake (Rx) 1250 Container Volume 250 Volume Adjustment/Waste 0 Dosing IV Rate 165 Increase/Decrease Started/Running Cumulative Dose 0 Time Elapsed Time 7h 35m Infusion: 04/29/19 03:54 Dose: 0 mls/hr Medication Infusion/Titration Document 04/29/19 03:54 JPEREZ (Rec: 04/29/19 05:10 BRANT LEE-MS6) Intake Titration Intake 250 Cumulative Intake 250 Cumulative Intake (Rx) 1250 Container Volume 0 Volume Adjustment/Waste 0 Dosing IV Rate 0 Increase/Decrease Infused Cumulative Dose 0 Time Elapsed Time 7h 35m Admin: 04/29/19 02:23 Dose: 165 mls/hr MAR IV Start Time Document 04/29/19 02:23 JONATHANEREZ (Rec: 04/29/19 02:23 BRANT JESUS-WOW- ICU2) IV Start Time MAR IV Start Time 02:23 IV Site MAR IV Site Right Hand Medication Infusion/Titration Document 04/29/19 02:23 BRANT (Rec: 04/29/19 02:23 BRANT LEE-WOW- ICU2) Intake Cumulative Intake (Rx) 1000 Container Volume 250 Volume Adjustment/Waste 0 Dosing IV Rate 165 Increase/Decrease Started/Running Cumulative Dose 0 Time Elapsed Time 6h 4m Infusion: 04/28/19 20:50 Dose: 0 mls/hr Medication Infusion/Titration Document 04/28/19 20:50 JPEREZ (Rec: 04/28/19 21:55 BRANT LEE-MS6) Intake Titration Intake 250 Cumulative Intake 250 Cumulative Intake (Rx) 1000 Container Volume 0 Volume Adjustment/Waste 0 Dosing IV Rate 0 Increase/Decrease Infused Cumulative Dose 0 Time Elapsed Time 6h 4m Admin: 04/28/19 19:19 Dose: 165 mls/hr MAR IV Start Time Document 04/28/19 19:19 RADAME (Rec: 04/28/19 19:19 RADAME WOW-ED4) IV Start Time MAR IV Start Time 18:59 IV Site MAR IV Site Right Hand Medication Infusion/Titration Document 04/28/19 19:19 RADAME (Rec: 04/28/19 19:19 RADAME WOW-ED4) Intake Cumulative Intake (Rx) 750 Container Volume 250 Volume Adjustment/Waste 0 Dosing IV Rate 165 Increase/Decrease Started/Running Cumulative Dose 0 Time Elapsed Time 4h 33m Infusion: 04/28/19 10:58 Dose: 165 mls/hr Medication Infusion/Titration Document 04/28/19 10:58 RADAME (Rec: 04/28/19 19:19 RADAME WOW-ED4) Intake Titration Intake 250 Cumulative Intake 250 Cumulative Intake (Rx) 750 Container Volume 0 Volume Adjustment/Waste 0 Dosing IV Rate 165 Increase/Decrease Infused Cumulative Dose 0 Time Elapsed Time 4h 33m Admin: 04/28/19 09:27 Dose: 165 mls/hr MAR IV Start Time Document 04/28/19 09:27 RADAME (Rec: 04/28/19 09:27 RADAME WOW-ED4) IV Start Time MAR IV Start Time 09:27 IV Site MAR IV Site Right Hand Medication Infusion/Titration Document 04/28/19 09:27 RADAME (Rec: 04/28/19 09:27 RADAME WOW-ED4) Intake Cumulative Intake (Rx) 500 Container Volume 250 Volume Adjustment/Waste 0 Dosing IV Rate 165 Increase/Decrease Started/Running Cumulative Dose 0 Time Elapsed Time 3h 2m Infusion: 04/28/19 04:33 Dose: 165 mls/hr Medication Infusion/Titration Document 04/28/19 04:33 RADAME (Rec: 04/28/19 09:27 RADAME WOW-ED4) Intake Titration Intake 250 Cumulative Intake 250 Cumulative Intake (Rx) 500 Container Volume 0 Volume Adjustment/Waste 0 Dosing IV Rate 165 Increase/Decrease Infused Cumulative Dose 0 Time Elapsed Time 3h 2m Admin: 04/28/19 03:02 Dose: 165 mls/hr MAR IV Start Time Document 04/28/19 03:02 APEREZ (Rec: 04/28/19 03:02 APEREZ [id number] ) IV Start Time MAR IV Start Time 03:02 IV Site MAR IV Site Right Hand Medication Infusion/Titration Document 04/28/19 03:02 APEREZ (Rec: 04/28/19 03:02 APEREZ [id number] ) Intake Cumulative Intake (Rx) 250 Container Volume 250 Volume Adjustment/Waste 0 Dosing IV Rate 165 Increase/Decrease Started/Running Cumulative Dose 0 Time Elapsed Time 1h 31m Infusion: 04/27/19 19:15 Dose: 165 mls/hr Medication Infusion/Titration Document 04/27/19 19:15 APEREZ (Rec: 04/28/19 03:02 APEREZ [id number] ) Intake Titration Intake 250 Cumulative Intake 250 Cumulative Intake (Rx) 250 Container Volume 0 Volume Adjustment/Waste 0 Dosing IV Rate 165 Increase/Decrease Infused Cumulative Dose 0 Time Elapsed Time 1h 31m Admin: 04/27/19 17:44 Dose: 165 mls/hr MAR IV Start Time Document 04/27/19 17:44 RADAME (Rec: 04/27/19 17:44 RADAME WOW-ED4) IV Start Time MAR IV Start Time 17:44 IV Site MAR IV Site Right Hand Medication Infusion/Titration Document 04/27/19 17:44 RADAME (Rec: 04/27/19 17:44 RADAME WOW-ED4) Intake Container Volume 250 Volume Adjustment/Waste 0 Dosing IV Rate 165 Increase/Decrease Started Time Elapsed Time 0m Levofloxacin (Levaquin Pb) 500 mg in 100 mls @ 100 mls/hr IV Q24HR MALDONADO Stop: 06/27/19 17:29 Last Infusion: 04/28/19 21:43 Dose: 0 mls/hr Medication Infusion/Titration Document 04/28/19 21:43 BRANT (Rec: 04/28/19 21:56 BRANT JESUS-MS6) Intake Titration Intake 100 Cumulative Intake 100 Cumulative Intake (Rx) 100 Container Volume 0 Volume Adjustment/Waste 0 Dosing IV Rate 0 Increase/Decrease Infused Cumulative Dose 500 Time Elapsed Time 1h 0m Admin: 04/28/19 20:43 Dose: 100 mls/hr MAR Fluoroquinolone Assessment Document 04/28/19 20:43 BRANT (Rec: 04/28/19 20:44 BRANT [facility]- ICU2) Fluoroquinolone Side Effects Unusual joint or tendon pain? No Muscle Weakness? No Tingling or prickling sensation, pins No and needles? Numbness in the arms or legs? No Confusion? No Hallucinations? No MAR IV Start Time Document 04/28/19 20:43 BRANT (Rec: 04/28/19 20:44 BRANT [facility]- ICU2) IV Start Time MAR IV Start Time 20:43 IV Site MAR IV Site Right Forearm Medication Infusion/Titration Document 04/28/19 20:43 BRANT (Rec: 04/28/19 20:44 BRANT [facility]- ICU2) Intake Container Volume 100 Volume Adjustment/Waste 0 Dosing IV Rate 100 Increase/Decrease Started Time Elapsed Time 0m Insulin Human Lispro (Humalog Insulin Sliding Scale) 0 units SUBQ [facility]; Protocol Stop: 06/25/19 07:29 Last Admin: 04/29/19 12:05 Dose: Not Given Non-Admin Reason: Blood Sugar Normal Admin: 04/29/19 06:30 Dose: Admin: 04/28/19 20:42 Dose: Not Given Non-Admin Reason: Agitation Admin: 04/28/19 16:58 Dose: Not Given Non-Admin Reason: Blood Sugar Normal Admin: 04/28/19 11:41 Dose: Not Given Non-Admin Reason: Blood Sugar Normal Admin: 04/28/19 07:46 Dose: Not Given Non-Admin Reason: Blood Sugar Normal Admin: 04/27/19 21:00 Dose: Admin: 04/27/19 16:26 Dose: Not Given Non-Admin Reason: Blood Sugar Normal Admin: 04/27/19 12:02 Dose: Not Given Non-Admin Reason: Blood Sugar Normal Admin: 04/27/19 06:38 Dose: Not Given Non-Admin Reason: Blood Sugar Normal Comments: BS -96 Admin: 04/26/19 21:54 Dose: Not Given Non-Admin Reason: Patient Refused Admin: 04/26/19 17:40 Dose: Not Given Non-Admin Reason: Blood Sugar Normal Comments: bs 108 Admin: 04/26/19 11:17 Dose: Not Given Non-Admin Reason: Blood Sugar Normal Admin: 04/26/19 06:47 Dose: Not Given Non-Admin Reason: Blood Sugar Normal Lactulose (Cephulac) 20 gm PO BID MALDONADO Stop: 06/25/19 08:59 Last Admin: 04/29/19 08:09 Dose: Not Given Non-Admin Reason: Patient Refused Admin: 04/28/19 17:01 Dose: Not Given Non-Admin Reason: Patient Refused Admin: 04/28/19 08:25 Dose: Not Given Non-Admin Reason: Patient Refused Admin: 04/27/19 16:27 Dose: Not Given Non-Admin Reason: Patient Refused Admin: 04/27/19 08:26 Dose: Not Given Non-Admin Reason: Patient Refused Admin: 04/26/19 17:06 Dose: 20 gm Admin: 04/26/19 08:26 Dose: 20 gm Levofloxacin (Levaquin) 500 mg PO DAILY [facility] Stop: 05/10/19 08:59 Lorazepam (Ativan) 1 mg PO Q8HR PRN; Protocol PRN Reason: Anxiety Stop: 06/23/19 13:18 Last Admin: 04/26/19 20:35 Dose: 1 mg Admin: 04/26/19 06:03 Dose: 1 mg Admin: 04/25/19 19:03 Dose: 1 mg Admin: 04/25/19 10:50 Dose: 1 mg Admin: 04/24/19 18:47 Dose: 1 mg Lorazepam (Ativan) 0.5 mg PO Q4HR PRN; Protocol PRN Reason: Anxiety Stop: 06/24/19 19:16 Last Admin: 04/29/19 15:14 Dose: 0.5 mg Admin: 04/29/19 09:04 Dose: 0.5 mg Admin: 04/29/19 03:17 Dose: 0.5 mg Admin: 04/28/19 19:47 Dose: 0.5 mg Admin: 04/28/19 13:21 Dose: 0.5 mg Admin: 04/28/19 06:18 Dose: 0.5 mg Admin: 04/27/19 19:05 Dose: 0.5 mg Admin: 04/27/19 08:25 Dose: 0.5 mg Midodrine (Proamatine) 10 mg PO Q8HR MALDONADO Stop: 06/24/19 20:59 Last Admin: 04/29/19 12:15 Dose: 10 mg Admin: 04/29/19 05:09 Dose: Admin: 04/28/19 20:42 Dose: 10 mg Admin: 04/28/19 12:12 Dose: 10 mg Admin: 04/28/19 05:00 Dose: 10 mg Admin: 04/27/19 21:48 Dose: 10 mg Admin: 04/27/19 12:52 Dose: 10 mg Admin: 04/27/19 06:51 Dose: 10 mg Admin: 04/26/19 20:29 Dose: 10 mg Admin: 04/26/19 12:40 Dose: 10 mg Comments: 100/60 Admin: 04/26/19 06:10 Dose: 10 mg Admin: 04/25/19 21:20 Dose: 10 mg Mineral Oil (Mineral Oil 30 Ml) 30 ml PO DAILY PRN PRN Reason: Constipation Stop: 06/25/19 15:09 Miscellaneous (Vancomycin Iv Per Pharmacy) 1 ea PRN PRN PRN Reason: PROTOCOL Stop: 06/26/19 16:31 Miscellaneous (Probiotic Screen) 1 ea PRN PRN PRN Reason: PROTOCOL Stop: 06/28/19 13:58 Morphine Sulfate (Morphine) 1 mg IVP Q4HR PRN PRN Reason: MILD PAIN Stop: 06/23/19 13:20 Last Admin: 04/26/19 19:52 Dose: 1 mg MAR Pain Scale Document 04/26/19 19:52 TTDAVID (Rec: 04/26/19 19:53 SHARON [id number] ) Pain Scale Pain Scale 8 Re-Assess: MAR Pain Scale Document 04/26/19 20:52 TTDAVID (Rec: 04/26/19 21:16 SHARON LEE-MS1) Pain Scale Pain Scale 3 Admin: 04/26/19 04:41 Dose: 1 mg MAR Pain Scale Document 04/26/19 04:41 TTEKIE (Rec: 04/26/19 04:41 TTEKIE [id number] ) Pain Scale Pain Scale 8 Re-Assess: MAR Pain Scale Document 04/26/19 05:41 TTEKIE (Rec: 04/26/19 05:54 TTEKIE [id number] ) Pain Scale Pain Scale 6 Morphine Sulfate (Morphine) 2 mg IVP Q4HR PRN PRN Reason: MODERATE PAIN Stop: 06/23/19 13:21 Morphine Sulfate (Morphine) 4 mg IVP Q4H PRN PRN Reason: Severe Pain Stop: 06/23/19 20:42 Last Admin: 04/25/19 18:06 Dose: 4 mg MAR Pain Scale Document 04/25/19 18:06 GYUN (Rec: 04/25/19 18:06 GYUN WOW-ED4) Pain Scale Pain Scale 9 Re-Assess: MAR Pain Scale Document 04/25/19 19:06 GYUN (Rec: 04/25/19 19:42 GYUN JESUS-MS6) Pain Scale Pain Scale 3 Admin: 04/25/19 14:06 Dose: 4 mg MAR Pain Scale Document 04/25/19 14:06 GYUN (Rec: 04/25/19 14:06 GYUN WOW-ED4) Pain Scale Pain Scale 10 Re-Assess: MAR Pain Scale Document 04/25/19 15:06 GYUN (Rec: 04/25/19 15:42 GYUN JESUS-MS4) Pain Scale Pain Scale 2 Admin: 04/25/19 10:04 Dose: 4 mg MAR Pain Scale Document 04/25/19 10:04 GYUN (Rec: 04/25/19 10:04 GYUN WOW-ED4) Pain Scale Pain Scale 10 Re-Assess: MAR Pain Scale Document 04/25/19 11:04 GYUN (Rec: 04/25/19 12:56 GYUN JESUS-MS6) Pain Scale Pain Scale 5 Admin: 04/25/19 06:03 Dose: 4 mg MAR Pain Scale Document 04/25/19 06:03 JPEREZ (Rec: 04/25/19 06:03 JPEREZ WOW-ED4) Pain Scale Pain Scale 10 Admin: 04/25/19 02:06 Dose: 4 mg MAR Pain Scale Document 04/25/19 02:06 BRANT (Rec: 04/25/19 02:06 JAMESJoanne WOW-ED4) Pain Scale Pain Scale 10 Re-Assess: MAR Pain Scale Document 04/25/19 03:06 BRANT (Rec: 04/25/19 04:33 BRANT JESUS-MS1) Pain Scale Pain Scale 2 Admin: 04/24/19 22:00 Dose: 4 mg MAR Pain Scale Document 04/24/19 22:00 JONATHANFANTA (Rec: 04/24/19 22:00 JAMESJoanne [email or web address]) Pain Scale Pain Scale 10 Re-Assess: [facility] Pain Scale Document 04/24/19 23:00 BRANT (Rec: 04/24/19 23:05 JONATHANFANTA [email or web address]) Pain Scale Pain Scale 3 Ondansetron HCl (Zofran Odt) 4 mg PO Q4HR PRN PRN Reason: Nausea Patient Own Med- (Biktarvy [id number]) 1 PO QPM [facility] Stop: 06/25/19 16:59 Last Admin: 04/28/19 16:59 Dose: 1 Admin: 04/27/19 16:20 Dose: 1 Admin: 04/26/19 17:52 Dose: Petrolatum (Zinc Oxide) 1 appl TP BID PRN PRN Reason: Abdominal Cramping Stop: 06/24/19 14:30 Polyethylene Glycol (Miralax) 17 gm PO DAILY PRN PRN Reason: Constipation Stop: 06/24/19 14:29 Quetiapine Fumarate (Seroquel Xr) 200 mg PO [facility]; Protocol Stop: 06/24/19 20:59 Last Admin: 04/28/19 20:42 Dose: 200 mg Admin: 04/27/19 21:51 Dose: 200 mg Admin: 04/26/19 21:00 Dose: Admin: 04/25/19 22:40 Dose: Rifaximin (Xifaxan) 600 mg PO BID [facility] Stop: 06/25/19 08:59 Last Admin: 04/29/19 08:09 Dose: 600 mg Admin: 04/28/19 16:59 Dose: 600 mg Verapamil HCl (Calan Sr) 120 mg PO DAILY [facility] Stop: 06/25/19 08:59 Last Admin: 04/29/19 08:09 Dose: Not Given Non-Admin Reason: Patient Refused Admin: 04/28/19 08:25 Dose: Not Given Non-Admin Reason: Patient Refused MAR Pulse and Blood Pressure Document 04/28/19 08:25 RADAME (Rec: 04/28/19 08:26 RADAME [email or web address]) Pulse Pulse Rate 67 Blood Pressure Blood Pressure 113/70 Admin: 04/27/19 08:23 Dose: Not Given Non-Admin Reason: Patient Refused MAR Pulse and Blood Pressure Document 04/27/19 08:23 RADAME (Rec: 04/27/19 08:24 RADAME [email or web address]) Pulse Pulse Rate 62 Blood Pressure Blood Pressure 115/69 Admin: 04/26/19 09:30 Dose: Not Given Non-Admin Reason: Decreased Blood Pressure MAR Pulse and Blood Pressure Document 04/26/19 09:30 [email or web address] (Rec: 04/26/19 10:05 [email or web address] JESUS-WOW -RT2) Pulse Pulse Rate 60 Blood Pressure Blood Pressure 111/62 Wound Care/Dressing Products (Silvasorb) 1 appl TP DAILY MALDONADO Stop: 06/27/19 08:59 Last Admin: 04/29/19 08:09 Dose: 1 appl Admin: 04/28/19 08:32 Dose: 1 appl Zolpidem Tartrate (Ambien) 5 mg PO HS MALDONADO Stop: 06/24/19 20:59 Last Admin: 04/28/19 20:42 Dose: 5 mg Admin: 04/27/19 23:19 Dose: Not Given Non-Admin Reason: Patient Asleep Admin: 04/26/19 21:30 Dose: Not Given Non-Admin Reason: Patient Asleep Comments: pt sleeping medication opened and wasted wittnesed by 2 nurses Admin: 04/25/19 21:21 Dose: 5 mg Discontinued Medications Acetaminophen/Hydrocodone Bitart (Beals 5mg/325mg) 2 tab PO X1 ONE Stop: 04/24/19 11:29 Last Admin: 04/24/19 11:36 Dose: 2 tab MAR Pain Scale Document 04/24/19 11:36 DEREK (Rec: 04/24/19 11:36 DEREK LEE-WOW- ICU1) Pain Scale Pain Scale 10 Sodium Chloride (Nacl 0.9%) 1,000 mls @ 0 mls/hr IV .Q0M ONE Stop: 04/24/19 11:28 Last Admin: 04/24/19 11:35 Dose: 999 mls/hr MAR IV Start Time Document 04/24/19 11:35 BRABINO (Rec: 04/24/19 11:35 DEREK [facility]- ICU) IV Start Time MAR IV Start Time 11:35 IV Site MAR IV Site Left Forearm Medication Infusion/Titration Document 04/24/19 11:35 BRABINO (Rec: 04/24/19 11:35 DEREK [facility]- ICU1) Intake Container Volume 1,000 Volume Adjustment/Waste 0 Dosing IV Rate 999 Increase/Decrease Started Cumulative Dose Not Applicable Time Elapsed Time 0m Ceftriaxone Sodium 2 gm/ (Sodium Chloride) 100 mls @ 100 mls/hr IV Q24H [facility] Stop: 04/25/19 11:29 Last Admin: 04/24/19 11:34 Dose: 100 mls/hr MAR IV Start Time Document 04/24/19 11:34 BRABINO (Rec: 04/24/19 11:35 DEREK [facility]- ICU) IV Start Time MAR IV Start Time 11:34 IV Site MAR IV Site Left Forearm Medication Infusion/Titration Document 04/24/19 11:34 ESTEEBINO (Rec: 04/24/19 11:35 DEREK [facility]- ICU) Intake Container Volume 100 Volume Adjustment/Waste 0 Dosing IV Rate 100 Increase/Decrease Started Time Elapsed Time 0m Piperacillin Sod/Tazobactam (Sod 3.375 gm/ Sodium Chloride) 50 mls @ 100 mls/ hr IV Q8HR MALDONADO Stop: 06/23/19 13:29 Last Admin: 04/28/19 12:12 Dose: 100 mls/hr MAR IV Start Time Document 04/28/19 12:12 RADAME (Rec: 04/28/19 12:12 RADAME WOW-ED4) IV Start Time MAR IV Start Time 12:12 IV Site MAR IV Site Right Hand Medication Infusion/Titration Document 04/28/19 12:12 RADAME (Rec: 04/28/19 12:12 RADAME WOW-ED4) Intake Cumulative Intake (Rx) 600 Container Volume 50 Volume Adjustment/Waste 0 Dosing IV Rate 100 Increase/Decrease Started/Running Cumulative Dose 0 Time Elapsed Time 6h 0m Infusion: 04/28/19 05:47 Dose: 100 mls/hr Medication Infusion/Titration Document 04/28/19 05:47 RADAME (Rec: 04/28/19 12:12 RADAME WOW-ED4) Intake Titration Intake 50 Cumulative Intake 50 Cumulative Intake (Rx) 600 Container Volume 0 Volume Adjustment/Waste 0 Dosing IV Rate 100 Increase/Decrease Infused Cumulative Dose 0 Time Elapsed Time 6h 0m Admin: 04/28/19 05:17 Dose: 100 mls/hr MAR IV Start Time Document 04/28/19 05:17 APEREZ (Rec: 04/28/19 05:23 APEREZ [id number] ) IV Start Time MAR IV Start Time 05:23 IV Site MAR IV Site Right Hand Medication Infusion/Titration Document 04/28/19 05:17 APEREZ (Rec: 04/28/19 05:23 APEREZ [id number] ) Intake Cumulative Intake (Rx) 550 Container Volume 50 Volume Adjustment/Waste 0 Dosing IV Rate 100 Increase/Decrease Started/Running Cumulative Dose 0 Time Elapsed Time 5h 30m Infusion: 04/27/19 22:21 Dose: 100 mls/hr Medication Infusion/Titration Document 04/27/19 22:21 APEREZ (Rec: 04/28/19 05:23 APEREZ [id number] ) Intake Titration Intake 50 Cumulative Intake 50 Cumulative Intake (Rx) 550 Container Volume 0 Volume Adjustment/Waste 0 Dosing IV Rate 100 Increase/Decrease Infused Cumulative Dose 0 Time Elapsed Time 5h 30m Admin: 04/27/19 21:51 Dose: 100 mls/hr [facility] IV Start Time Document 04/27/19 21:51 APEREZ (Rec: 04/27/19 21:51 APEREZ [id number] ) IV Start Time MAR IV Start Time 21:51 IV Site MAR IV Site Right Hand Medication Infusion/Titration Document 04/27/19 21:51 APEREZ (Rec: 04/27/19 21:51 APEREZ [id number] ) Intake Cumulative Intake (Rx) 500 Container Volume 50 Volume Adjustment/Waste 0 Dosing IV Rate 100 Increase/Decrease Started/Running Cumulative Dose 0 Time Elapsed Time 5h 0m Infusion: 04/27/19 13:23 Dose: 100 mls/hr Medication Infusion/Titration Document 04/27/19 13:23 APEREZ (Rec: 04/27/19 21:51 APEREZ [id number] ) Intake Titration Intake 50 Cumulative Intake 50 Cumulative Intake (Rx) 500 Container Volume 0 Volume Adjustment/Waste 0 Dosing IV Rate 100 Increase/Decrease Infused Cumulative Dose 0 Time Elapsed Time 5h 0m Admin: 04/27/19 12:53 Dose: 100 mls/hr MAR IV Start Time Document 04/27/19 12:53 RADAME (Rec: 04/27/19 12:53 RADAME WOW-ED4) IV Start Time [facility] IV Start Time 12:53 IV Site MAR IV Site Right Hand Medication Infusion/Titration Document 04/27/19 12:53 RADAME (Rec: 04/27/19 12:53 RADAME WOW-ED4) Intake Cumulative Intake (Rx) 450 Container Volume 50 Volume Adjustment/Waste 0 Dosing IV Rate 100 Increase/Decrease Started/Running Cumulative Dose 0 Time Elapsed Time 4h 30m Infusion: 04/27/19 06:44 Dose: 100 mls/hr Medication Infusion/Titration Document 04/27/19 06:44 RADAME (Rec: 04/27/19 12:53 RADAME WOW-ED4) Intake Titration Intake 50 Cumulative Intake 50 Cumulative Intake (Rx) 450 Container Volume 0 Volume Adjustment/Waste 0 Dosing IV Rate 100 Increase/Decrease Infused Cumulative Dose 0 Time Elapsed Time 4h 30m Admin: 04/27/19 06:14 Dose: 100 mls/hr MAR IV Start Time Document 04/27/19 06:14 TTEKIE (Rec: 04/27/19 06:14 TTEKZEYAD LEE-WOW- ICU2) IV Start Time [facility] IV Start Time 06:14 IV Site MAR IV Site Left Hand Medication Infusion/Titration Document 04/27/19 06:14 TTEKIE (Rec: 04/27/19 06:14 TTEKIE JESUS-WOW- ICU2) Intake Cumulative Intake (Rx) 400 Container Volume 50 Volume Adjustment/Waste 0 Dosing IV Rate 100 Increase/Decrease Started/Running Cumulative Dose 0 Time Elapsed Time 4h 0m Infusion: 04/26/19 20:58 Dose: 0 mls/hr Medication Infusion/Titration Document 04/26/19 20:58 TTEKIE (Rec: 04/27/19 04:07 TTEKIE JESUS-MS1) Intake Titration Intake 50 Cumulative Intake 50 Cumulative Intake (Rx) 400 Container Volume 0 Volume Adjustment/Waste 0 Dosing IV Rate 0 Increase/Decrease Infused Cumulative Dose 0 Time Elapsed Time 4h 0m Admin: 04/26/19 20:28 Dose: 100 mls/hr MAR IV Start Time Document 04/26/19 20:28 TTEKZEYAD (Rec: 04/26/19 20:29 [id number] IV Start Time [facility] IV Start Time 20:28 IV Site MAR IV Site Left Hand Medication Infusion/Titration Document 04/26/19 20:28 TTEK (Rec: 04/26/19 20:29 TTZEYAD [id number] ) Intake Cumulative Intake (Rx) 350 Container Volume 50 Volume Adjustment/Waste 0 Dosing IV Rate 100 Increase/Decrease Started/Running Cumulative Dose 0 Time Elapsed Time 3h 30m Infusion: 04/26/19 14:30 Dose: 100 mls/hr Medication Infusion/Titration Document 04/26/19 14:30 TTEK (Rec: 04/26/19 20:29 [id number] [facility] Intake Titration Intake 50 Cumulative Intake 50 Cumulative Intake (Rx) 350 Container Volume 0 Volume Adjustment/Waste 0 Dosing IV Rate 100 Increase/Decrease Infused Cumulative Dose 0 Time Elapsed Time 3h 30m Admin: 04/26/19 14:00 Dose: 100 mls/hr [facility] IV Start Time Document 04/26/19 14:00 [email or web address] (Rec: 04/26/19 15:31 [email or web address] [email or web address]) IV Start Time [facility] IV Start Time 14:00 IV Site MAR IV Site Left Hand Medication Infusion/Titration Document 04/26/19 14:00 [email or web address] (Rec: 04/26/19 15:31 [email or web address] [email or web address]) Intake Cumulative Intake (Rx) 300 Container Volume 50 Volume Adjustment/Waste 0 Dosing IV Rate 100 Increase/Decrease Started/Running Cumulative Dose 0 Time Elapsed Time 3h 0m Infusion: 04/26/19 05:11 Dose: 100 mls/hr Medication Infusion/Titration Document 04/26/19 05:11 [email or web address] (Rec: 04/26/19 15:31 [email or web address] [email or web address]) Intake Titration Intake 50 Cumulative Intake 50 Cumulative Intake (Rx) 300 Container Volume 0 Volume Adjustment/Waste 0 Dosing IV Rate 100 Increase/Decrease Infused Cumulative Dose 0 Time Elapsed Time 3h 0m Admin: 04/26/19 04:41 Dose: 100 mls/hr MAR IV Start Time Document 04/26/19 04:41 TTEKIE (Rec: 04/26/19 04:42 TTDAVID [id number] ) IV Start Time MAR IV Start Time 04:41 IV Site MAR IV Site Left Hand Medication Infusion/Titration Document 04/26/19 04:41 TTEKIE (Rec: 04/26/19 04:42 TTDAVID [id number] ) Intake Cumulative Intake (Rx) 250 Container Volume 50 Volume Adjustment/Waste 0 Dosing IV Rate 100 Increase/Decrease Started/Running Cumulative Dose 0 Time Elapsed Time 2h 30m Infusion: 04/25/19 21:49 Dose: 0 mls/hr Medication Infusion/Titration Document 04/25/19 21:49 TTEKZEYAD (Rec: 04/26/19 00:04 SHARON [id number] ) Intake Titration Intake 50 Cumulative Intake 50 Cumulative Intake (Rx) 250 Container Volume 0 Volume Adjustment/Waste 0 Dosing IV Rate 0 Increase/Decrease Infused Cumulative Dose 0 Time Elapsed Time 2h 30m Admin: 04/25/19 21:19 Dose: 100 mls/hr MAR IV Start Time Document 04/25/19 21:19 TTEKZEYAD (Rec: 04/25/19 21:20 TTDAVID [id number] ) IV Start Time MAR IV Start Time 21:20 IV Site MAR IV Site Left Hand Medication Infusion/Titration Document 04/25/19 21:19 TTEKZEYAD (Rec: 04/25/19 21:20 TTDAVID [id number] ) Intake Cumulative Intake (Rx) 200 Container Volume 50 Volume Adjustment/Waste 0 Dosing IV Rate 100 Increase/Decrease Started/Running Cumulative Dose 0 Time Elapsed Time 2h 0m Infusion: 04/25/19 12:53 Dose: 100 mls/hr Medication Infusion/Titration Document 04/25/19 12:53 TTEKIE (Rec: 04/25/19 21:20 TTDAVID [id number] ) Intake Titration Intake 50 Cumulative Intake 50 Cumulative Intake (Rx) 200 Container Volume 0 Volume Adjustment/Waste 0 Dosing IV Rate 100 Increase/Decrease Infused Cumulative Dose 0 Time Elapsed Time 2h 0m Admin: 04/25/19 12:23 Dose: 100 mls/hr MAR IV Start Time Document 04/25/19 12:23 GYUN (Rec: 04/25/19 12:24 GYUN WOW-ED4) IV Start Time MAR IV Start Time 12:24 IV Site MAR IV Site Left Hand Medication Infusion/Titration Document 04/25/19 12:23 GYUN (Rec: 04/25/19 12:24 GYUN WOW-ED4) Intake Cumulative Intake (Rx) 150 Container Volume 50 Volume Adjustment/Waste 0 Dosing IV Rate 100 Increase/Decrease Started/Running Cumulative Dose 0 Time Elapsed Time 1h 30m Infusion: 04/25/19 04:45 Dose: 0 mls/hr Medication Infusion/Titration Document 04/25/19 04:45 JPEREZ (Rec: 04/25/19 05:14 JPEREZ JESUS-MS1) Intake Titration Intake 50 Cumulative Intake 50 Cumulative Intake (Rx) 150 Container Volume 0 Volume Adjustment/Waste 0 Dosing IV Rate 0 Increase/Decrease Infused Cumulative Dose 0 Time Elapsed Time 1h 30m Admin: 04/25/19 04:15 Dose: 100 mls/hr MAR IV Start Time Document 04/25/19 04:15 JPEREZ (Rec: 04/25/19 04:15 JPEREZ WOW-ED4) IV Start Time MAR IV Start Time 04:15 IV Site MAR IV Site Left Hand Medication Infusion/Titration Document 04/25/19 04:15 JPEREZ (Rec: 04/25/19 04:15 JPEREZ WOW-ED4) Intake Cumulative Intake (Rx) 100 Container Volume 50 Volume Adjustment/Waste 0 Dosing IV Rate 100 Increase/Decrease Started/Running Cumulative Dose 0 Time Elapsed Time 1h 0m Infusion: 04/24/19 20:37 Dose: 0 mls/hr Medication Infusion/Titration Document 04/24/19 20:37 JPEREZ (Rec: 04/24/19 20:46 JPEREZ JESUS-MS1) Intake Titration Intake 50 Cumulative Intake 50 Cumulative Intake (Rx) 100 Container Volume 0 Volume Adjustment/Waste 0 Dosing IV Rate 0 Increase/Decrease Infused Cumulative Dose 0 Time Elapsed Time 1h 0m Admin: 04/24/19 20:07 Dose: 100 mls/hr MAR IV Start Time Document 04/24/19 20:07 JPEREZ (Rec: 04/24/19 20:07 JPEREZ WOW-ED4) IV Start Time MAR IV Start Time 20:07 IV Site MAR IV Site Left Hand Medication Infusion/Titration Document 04/24/19 20:07 JPEREZ (Rec: 04/24/19 20:07 JPEREZ WOW-ED4) Intake Cumulative Intake (Rx) 50 Container Volume 50 Volume Adjustment/Waste 0 Dosing IV Rate 100 Increase/Decrease Started/Running Cumulative Dose 0 Time Elapsed Time 30m Infusion: 04/24/19 14:43 Dose: 100 mls/hr Medication Infusion/Titration Document 04/24/19 14:43 JPEREZ (Rec: 04/24/19 20:07 JONATHANFANTA WOW-ED4) Intake Titration Intake 50 Cumulative Intake 50 Cumulative Intake (Rx) 50 Container Volume 0 Volume Adjustment/Waste 0 Dosing IV Rate 100 Increase/Decrease Infused Cumulative Dose 0 Time Elapsed Time 30m Admin: 04/24/19 14:13 Dose: 100 mls/hr MAR IV Start Time Document 04/24/19 14:13 GYUN (Rec: 04/24/19 14:14 GYUN [id number]) IV Start Time MAR IV Start Time 14:13 IV Site MAR IV Site Left Hand Medication Infusion/Titration Document 04/24/19 14:13 GYUN (Rec: 04/24/19 14:14 GYUN [id number]) Intake Container Volume 50 Volume Adjustment/Waste 0 Dosing IV Rate 100 Increase/Decrease Started Time Elapsed Time 0m Potassium Chloride (Potassium Chloride) 20 meq in 100 mls @ 50 mls/hr IV X1 ONE Stop: 04/28/19 11:13 Last Admin: 04/28/19 09:33 Dose: 50 mls/hr MAR IV Start Time Document 04/28/19 09:33 RADAME (Rec: 04/28/19 09:33 RADAME WOW-ED4) IV Start Time MAR IV Start Time 09:33 IV Site MAR IV Site Right Hand Medication Infusion/Titration Document 04/28/19 09:33 RADAME (Rec: 04/28/19 09:33 RADAME WOW-ED4) Intake Container Volume 100 Volume Adjustment/Waste 0 Dosing IV Rate 50 Increase/Decrease Started Time Elapsed Time 0m Lorazepam (Ativan) 0.5 mg PO NOW STA; Protocol Stop: 04/24/19 11:45 Last Admin: 04/24/19 11:51 Dose: 0.5 mg Miscellaneous (Amino Acids/Protein Hydrolys [Pro-Stat Awc Liquid]) 30 ml PO TID MALDONADO Stop: 06/24/19 20:59 Last Admin: 04/25/19 21:00 Dose: Miscellaneous (Bictegrav/Emtricit/Tenofov Ala [Biktarvy 50-200-25 Mg Tablet]) 1 each PO QPM MALDONADO Stop: 06/25/19 16:59 Morphine Sulfate (Morphine) 4 mg IVP NOW STA Stop: 04/24/19 08:49 Last Admin: 04/24/19 08:51 Dose: 4 mg MAR Pain Scale Document 04/24/19 08:51 BRABINO (Rec: 04/24/19 08:51 BRABINO JESUS-WOW- ICU1) Pain Scale Pain Scale 10 Re-Assess: MAR Pain Scale Document 04/24/19 09:51 BRABINO (Rec: 04/24/19 11:53 BRABINO JESUS-ER4) Pain Scale Pain Scale 7 Morphine Sulfate (Morphine) 4 mg IV NOW STA Stop: 04/24/19 08:53 Morphine Sulfate (Morphine) 1 mg IVP Q4HR PRN PRN Reason: Pain (Moderate) Stop: 06/23/19 13:20 Morphine Sulfate (Morphine) 2 mg IVP Q4HR PRN PRN Reason: Pain (Severe) Stop: 06/23/19 13:21 Last Admin: 04/24/19 18:21 Dose: 2 mg MAR Pain Scale Document 04/24/19 18:21 GYUN (Rec: 04/24/19 18:22 GYUN [id number]) Pain Scale Pain Scale 10 Re-Assess: MAR Pain Scale Document 04/24/19 19:21 JPEREZ (Rec: 04/24/19 19:47 JPEREZ JESUS-MS1) Pain Scale Pain Scale 10 Admin: 04/24/19 14:17 Dose: 2 mg MAR Pain Scale Document 04/24/19 14:17 GYUN (Rec: 04/24/19 14:18 GYUN [id number]) Pain Scale Pain Scale 10 Re-Assess: MAR Pain Scale Document 04/24/19 15:17 GYUN (Rec: 04/24/19 15:21 GYUN JESUS-[email or web address]) Pain Scale Pain Scale 6 Polyethylene Glycol (Miralax) 17 gm PO DAILY [facility] Stop: 06/24/19 14:29 Last Admin: 04/28/19 08:25 Dose: Not Given Non-Admin Reason: Patient Refused Admin: 04/27/19 08:26 Dose: Not Given Non-Admin Reason: Patient Refused Admin: 04/26/19 08:26 Dose: 17 gm Admin: 04/25/19 15:01 Dose: 17 gm Potassium Chloride (Klor-Con) 40 meq PO X1 ONE Stop: 04/24/19 08:53 Last Admin: 04/24/19 08:54 Dose: 40 meq Potassium Chloride (Klor-Con) 60 meq PO X1 ONE Stop: 04/28/19 09:14 Last Admin: 04/28/19 09:27 Dose: 60 meq Potassium Chloride (Klor-Con) 20 meq PO X1 ONE Stop: 04/29/19 13:01 Last Admin: 04/29/19 12:15 Dose: 20 meq Rifaximin (Xifaxan) 550 mg PO BID [facility] Stop: 06/25/19 08:59 Last Admin: 04/28/19 08:25 Dose: 550 mg Admin: 04/27/19 16:20 Dose: 550 mg Admin: 04/27/19 08:24 Dose: 550 mg Admin: 04/26/19 17:07 Dose: 550 mg Admin: 04/26/19 08:26 Dose: 550 mg Diagnoses OBESITY, UNSPECIFIED (04/24/19) ESSENTIAL (PRIMARY) HYPERTENSION (04/24/19) CHRONIC OBSTRUCTIVE PULMONARY DISEASE, UNSPECIFIED (04/24/19) FECAL IMPACTION (04/24/19) FISTULA OF INTESTINE (04/24/19) SPINAL STENOSIS, SITE UNSPECIFIED (04/24/19) UNSPECIFIED HYDRONEPHROSIS (04/24/19) URINARY TRACT INFECTION, SITE NOT SPECIFIED (04/24/19) WEAKNESS (04/24/19) DISRUPTION OF EXTERNAL OPERATION (SURGICAL) WOUND, NEC, INIT (04/24/19) Current Medications Acetaminophen (Tylenol) 650 mg PO Q6HR PRN PRN Reason: Pain or Fever >101 Stop: 06/24/19 19:14 Acetaminophen/Hydrocodone Bitart (Beals 10 Mg/325 Mg) 1 tab PO Q6H PRN PRN Reason: Pain (Severe) Stop: 06/24/19 19:14 Last Admin: 04/27/19 12:52 Dose: 1 tab Acetaminophen/Hydrocodone Bitart (Beals 5mg/325mg) 1 tab PO Q6HR PRN PRN Reason: Pain (Moderate) Stop: 06/24/19 19:14 Last Admin: 04/29/19 15:14 Dose: 1 tab Al Hydrox/Mg Hydrox/Simethicone (Maalox) 30 ml PO Q6HR PRN PRN Reason: Constipation Stop: 06/24/19 19:14 Albuterol/Ipratropium (Duoneb Neb) 3 ml HHN Q4HR PRN PRN Reason: Shortness of Breath Stop: 06/24/19 19:14 Cholestyramine Resin (Questran) 4 gm PO DAILY [facility] Stop: 06/25/19 08:59 Last Admin: 04/29/19 08:08 Dose: 4 gm Diphenoxylate HCl/Atropine (Lomotil) 2 tab PO Q4HR PRN PRN Reason: UNK Stop: 06/24/19 19:14 Last Admin: 04/29/19 08:08 Dose: 2 tab Docusate Sodium (Colace) 100 mg PO BID [facility] Stop: 06/25/19 08:59 Last Admin: 04/29/19 08:09 Dose: Not Given Ergocalciferol (Vitamin D2) 50,000 iu PO QWEEK [facility] Stop: 06/25/19 08:59 Last Admin: 04/26/19 09:43 Dose: 50,000 iu Ferrous Sulfate (Iron) 325 mg PO DAILY [facility] Stop: 06/25/19 08:59 Last Admin: 04/29/19 08:08 Dose: 325 mg Gabapentin (Neurontin) 300 mg PO BID [facility] Stop: 06/28/19 08:59 Last Admin: 04/29/19 08:08 Dose: 300 mg Dextrose/Sodium Chloride (D5-0.45ns) 1,000 mls @ 75 mls/hr IV .[id number] [facility] Stop: 06/23/19 13:15 Last Admin: 04/29/19 05:42 Dose: 75 mls/hr Vancomycin HCl 1 gm/ Sodium (Chloride) 250 mls @ 165 mls/hr IV Q8H [facility] Stop: 06/26/19 17:59 Last Admin: 04/29/19 09:02 Dose: 165 mls/hr Levofloxacin (Levaquin Pb) 500 mg in 100 mls @ 100 mls/hr IV Q24HR [facility] Stop: 06/27/19 17:29 Last Infusion: 04/28/19 21:43 Dose: Infused Insulin Human Lispro (Humalog Insulin Sliding Scale) 0 units SUBQ ACHS [facility]; Protocol Stop: 06/25/19 07:29 Last Admin: 04/29/19 12:05 Dose: Not Given Lactulose (Cephulac) 20 gm PO BID [facility] Stop: 06/25/19 08:59 Last Admin: 04/29/19 08:09 Dose: Not Given Levofloxacin (Levaquin) 500 mg PO DAILY [facility] Stop: 05/10/19 08:59 Lorazepam (Ativan) 1 mg PO Q8HR PRN; Protocol PRN Reason: Anxiety Stop: 06/23/19 13:18 Last Admin: 04/26/19 20:35 Dose: 1 mg Lorazepam (Ativan) 0.5 mg PO Q4HR PRN; Protocol PRN Reason: Anxiety Stop: 06/24/19 19:16 Last Admin: 04/29/19 15:14 Dose: 0.5 mg Midodrine (Proamatine) 10 mg PO Q8HR [facility] Stop: 06/24/19 20:59 Last Admin: 04/29/19 12:15 Dose: 10 mg Mineral Oil (Mineral Oil 30 Ml) 30 ml PO DAILY PRN PRN Reason: Constipation Stop: 06/25/19 15:09 Miscellaneous (Vancomycin Iv Per Pharmacy) 1 ea MC PRN PRN PRN Reason: PROTOCOL Stop: 06/26/19 16:31 Miscellaneous (Probiotic Screen) 1 ea MC PRN PRN PRN Reason: PROTOCOL Stop: 06/28/19 13:58 Morphine Sulfate (Morphine) 1 mg IVP Q4HR PRN PRN Reason: MILD PAIN Stop: 06/23/19 13:20 Last Admin: 04/26/19 19:52 Dose: 1 mg Morphine Sulfate (Morphine) 2 mg IVP Q4HR PRN PRN Reason: MODERATE PAIN Stop: 06/23/19 13:21 Morphine Sulfate (Morphine) 4 mg IVP Q4H PRN PRN Reason: Severe Pain Stop: 06/23/19 20:42 Last Admin: 04/25/19 18:06 Dose: 4 mg Ondansetron HCl (Zofran Odt) 4 mg PO Q4HR PRN PRN Reason: Nausea Patient Own Med- (Biktarvy 50-200-25) 1 PO QPM MALDONADO Stop: 06/25/19 16:59 Last Admin: 04/28/19 16:59 Dose: 1 Petrolatum (Zinc Oxide) 1 appl TP BID PRN PRN Reason: Abdominal Cramping Stop: 06/24/19 14:30 Polyethylene Glycol (Miralax) 17 gm PO DAILY PRN PRN Reason: Constipation Stop: 06/24/19 14:29 Quetiapine Fumarate (Seroquel Xr) 200 mg PO HS MALDONADO; Protocol Stop: 06/24/19 20:59 Last Admin: 04/28/19 20:42 Dose: 200 mg Rifaximin (Xifaxan) 600 mg PO BID [facility] Stop: 06/25/19 08:59 Last Admin: 04/29/19 08:09 Dose: 600 mg Verapamil HCl (Calan Sr) 120 mg PO DAILY MALDONADO Stop: 06/25/19 08:59 Last Admin: 04/29/19 08:09 Dose: Not Given Wound Care/Dressing Products (Silvasorb) 1 appl TP DAILY MALDONADO Stop: 06/27/19 08:59 Last Admin: 04/29/19 08:09 Dose: 1 appl Zolpidem Tartrate (Ambien) 5 mg PO HS [facility] Stop: 06/24/19 20:59 Last Admin: 04/28/19 20:42 Dose: 5 mg dx Subjective: hiv abd wound hpi- wound cx mrsa proteus on zosyn vanco ros no efrv o.e vss chets claer absd soft abs d wound dx hiv/abd wound Vital Signs - 24 hr 04/26/19 04/26/19 04/27/19 19:26 20:00 07:19 Temp 97.4 F HR 55 67 70 RR 18 18 18 BP 112/62 O2 Sat % 97 99 96 04/27/19 04/27/19 04/27/19 08:00 08:23 12:00 Temp 96.9 F 97.4 F HR 62 62 57 RR 19 15 BP 115/69 115/69 109/70 O2 Sat % 97 98 Microbiology 04/24/19 09:10 Abdomen - Final 04/24/19 09:10 Abdomen Aerobic Culture - Final Proteus Mirabilis Staph Aureus-Mrsa Isolated 04/24/19 12:14 Urine,Clean Catch Urine Culture - Final Proteus Vulgaris 04/24/19 15:30 Nares - Final NO MRSA ISOLATED 04/24/19 08:01 Blood - Preliminary NO GROWTH AFTER 48 HOURS 04/24/19 07:46 Blood - Preliminary NO GROWTH AFTER 48 HOURS Microbiology 04/24/19 09:10 Abdomen - Final 04/24/19 09:10 Abdomen Aerobic Culture - Final Proteus Mirabilis Staph Aureus-Mrsa Isolated 04/24/19 12:14 Urine,Clean Catch Urine Culture - Final Proteus Vulgaris 04/24/19 15:30 Nares - Final NO MRSA ISOLATED 04/24/19 08:01 Blood - Preliminary NO GROWTH AFTER 48 HOURS 04/24/19 07:46 Blood - Preliminary NO GROWTH AFTER 48 HOURS Laboratory Results - last 24 hr 04/27/19 04/27/19 04/27/19 06:35 11:57 16:22 POC Glucose 96 106 H 98 Current Medications Acetaminophen (Tylenol) 650 mg PO Q6HR PRN PRN Reason: Pain or Fever >101 Stop: 06/24/19 19:14 Acetaminophen/Hydrocodone Bitart (Beals 10 Mg/325 Mg) 1 tab PO Q6H PRN PRN Reason: Pain (Severe) Stop: 06/24/19 19:14 Last Admin: 04/27/19 12:52 Dose: 1 tab Acetaminophen/Hydrocodone Bitart (Beals 5mg/325mg) 1 tab PO Q6HR PRN PRN Reason: Pain (Moderate) Stop: 06/24/19 19:14 Last Admin: 04/27/19 06:50 Dose: 1 tab Al Hydrox/Mg Hydrox/Simethicone (Maalox) 30 ml PO Q6HR PRN PRN Reason: Constipation Stop: 06/24/19 19:14 Albuterol/Ipratropium (Duoneb Neb) 3 ml HHN Q4HR PRN PRN Reason: Shortness of Breath Stop: 06/24/19 19:14 Cholestyramine Resin (Questran) 4 gm PO DAILY [facility] Stop: 06/25/19 08:59 Last Admin: 04/27/19 08:24 Dose: 4 gm Diphenoxylate HCl/Atropine (Lomotil) 2 tab PO Q4HR PRN PRN Reason: UNK Stop: 06/24/19 19:14 Docusate Sodium (Colace) 100 mg PO BID [facility] Stop: 06/25/19 08:59 Last Admin: 04/27/19 16:27 Dose: Not Given Ergocalciferol (Vitamin D2) 50,000 iu PO QWEEK [facility] Stop: 06/25/19 08:59 Last Admin: 04/26/19 09:43 Dose: 50,000 iu Ferrous Sulfate (Iron) 325 mg PO DAILY [facility] Stop: 06/25/19 08:59 Last Admin: 04/27/19 08:24 Dose: 325 mg Dextrose/Sodium Chloride (D5-0.45ns) 1,000 mls @ 75 mls/hr IV .[id number] [facility] Stop: 06/23/19 13:15 Last Admin: 04/27/19 06:19 Dose: 75 mls/hr Piperacillin Sod/Tazobactam (Sod 3.375 gm/ Sodium Chloride) 50 mls @ 100 mls/ hr IV Q8HR [facility] Stop: 06/23/19 13:29 Last Admin: 04/27/19 12:53 Dose: 100 mls/hr Insulin Human Lispro (Humalog Insulin Sliding Scale) 0 units SUBQ ACHS [facility]; Protocol Stop: 06/25/19 07:29 Last Admin: 04/27/19 16:26 Dose: Not Given Lactulose (Cephulac) 20 gm PO BID [facility] Stop: 06/25/19 08:59 Last Admin: 04/27/19 16:27 Dose: Not Given Lorazepam (Ativan) 1 mg PO Q8HR PRN; Protocol PRN Reason: Anxiety Stop: 06/23/19 13:18 Last Admin: 04/26/19 20:35 Dose: 1 mg Lorazepam (Ativan) 0.5 mg PO Q4HR PRN; Protocol PRN Reason: Anxiety Stop: 06/24/19 19:16 Last Admin: 04/27/19 08:25 Dose: 0.5 mg Midodrine (Proamatine) 10 mg PO Q8HR [facility] Stop: 06/24/19 20:59 Last Admin: 04/27/19 12:52 Dose: 10 mg Mineral Oil (Mineral Oil 30 Ml) 30 ml PO DAILY PRN PRN Reason: Constipation Stop: 06/25/19 15:09 Miscellaneous (Vancomycin Iv Per Pharmacy) 1 ea MC PRN PRN PRN Reason: PROTOCOL Stop: 06/26/19 16:31 Morphine Sulfate (Morphine) 1 mg IVP Q4HR PRN PRN Reason: MILD PAIN Stop: 06/23/19 13:20 Last Admin: 04/26/19 19:52 Dose: 1 mg Morphine Sulfate (Morphine) 2 mg IVP Q4HR PRN PRN Reason: MODERATE PAIN Stop: 06/23/19 13:21 Morphine Sulfate (Morphine) 4 mg IVP Q4H PRN PRN Reason: Severe Pain Stop: 06/23/19 20:42 Last Admin: 04/25/19 18:06 Dose: 4 mg Ondansetron HCl (Zofran Odt) 4 mg PO Q4HR PRN PRN Reason: Nausea Patient Own Med- (Biktarvy 50-200-25) 1 PO QPM [facility] Stop: 06/25/19 16:59 Last Admin: 04/27/19 16:20 Dose: 1 Petrolatum (Zinc Oxide) 1 appl TP BID PRN PRN Reason: Abdominal Cramping Stop: 06/24/19 14:30 Polyethylene Glycol (Miralax) 17 gm PO DAILY [facility] Stop: 06/24/19 14:29 Last Admin: 04/27/19 08:26 Dose: Not Given Quetiapine Fumarate (Seroquel Xr) 200 mg PO HS [facility]; Protocol Stop: 06/24/19 20:59 Last Admin: 04/26/19 21:00 Dose: Not Given Rifaximin (Xifaxan) 550 mg PO BID [facility] Stop: 06/25/19 08:59 Last Admin: 04/27/19 16:20 Dose: 550 mg Verapamil HCl (Calan Sr) 120 mg PO DAILY [facility] Stop: 06/25/19 08:59 Last Admin: 04/27/19 08:23 Dose: Not Given Zolpidem Tartrate (Ambien) 5 mg PO HS [facility] Stop: 06/24/19 20:59 Last Admin: 04/26/19 21:30 Dose: Not Given Allergies Allergy/AdvReac Type Severity Reaction Status Date / Time No Known Allergies Allergy Verified 04/24/19 06:53 Infectious Disease Objective - Results Result Diagrams: 04/29/19 05:00 04/29/19 05:00 Recent Labs: Laboratory Last Values WBC 4.2 Th/cmm (4.8-10.8) L 04/29/19 05:00 RBC 3.85 Mil/cmm (3.80-5.10) 04/29/19 05:00 Hgb 11.7 gm/dL (12-16) L 04/29/19 05:00 Hct 33.9 % (41.0-60) L 04/29/19 05:00 MCV 88.0 fl (81-100) 04/29/19 05:00 MCH 30.3 pg (27.0-31.0) 04/29/19 05:00 MCHC Differential 34.5 pg (28.0-36.0) 04/29/19 05:00 RDW 13.3 % (11.5-20.0) 04/29/19 05:00 Plt Count 367 Th/cmm (150-400) 04/29/19 05:00 MPV 7.1 fl 04/29/19 05:00 Add Manual Diff YES 04/28/19 05:10 Neutrophils % 71.4 % (40.0-80.0) 04/29/19 05:00 Lymphocytes % 19.0 % (20.0-50.0) L 04/29/19 05:00 Monocytes % 6.5 % (2.0-10.0) 04/29/19 05:00 Eosinophils % 3.1 % (0.0-5.0) 04/29/19 05:00 Basophils % 0.0 % (0.0-2.0) 04/29/19 05:00 Neutrophils (Manual) 64 % (40-80) 04/28/19 05:10 Lymphocytes 28 % (20-50) 04/28/19 05:10 Monocytes 6 % (2-10) 04/28/19 05:10 Eosinophils 2 % (0-5) 04/28/19 05:10 PT 10.2 SECONDS (9.5-11.5) 04/24/19 07:35 INR 0.98 (0.5-1.4) 04/24/19 07:35 Sodium 141 mEq/L (136-145) 04/29/19 05:00 Potassium 3.6 mEq/L (3.5-5.1) 04/29/19 05:00 Chloride 113 mEq/L (98-107) H 04/29/19 05:00 Carbon Dioxide 19.0 mEq/L (21.0-31.0) L 04/29/19 05:00 Anion Gap 12.6 (7.0-16.0) 04/29/19 05:00 BUN 5 mg/dL (7-25) L 04/29/19 05:00 Creatinine 0.8 mg/dL (0.6-1.2) 04/29/19 05:00 Est GFR ( Amer) > 60.0 ml/min (>90) 04/29/19 05:00 Est GFR (Non-Af Amer) > 60.0 ml/min 04/29/19 05:00 BUN/Creatinine Ratio 6.3 04/29/19 05:00 Glucose 94 mg/dL (70-105) 04/29/19 05:00 POC Glucose 93 MG/DL (70 - 105) 04/29/19 11:32 Calcium 9.4 mg/dL (8.6-10.3) 04/29/19 05:00 Total Bilirubin 0.4 mg/dL (0.3-1.0) 04/24/19 07:35 AST 11 U/L (13-39) L 04/24/19 07:35 ALT 9 U/L (7-52) 04/24/19 07:35 Alkaline Phosphatase 77 U/L (34-104) 04/24/19 07:35 Troponin I 0.01 ng/mL (0.01-0.05) 04/24/19 07:35 Total Protein 7.3 gm/dL (6.0-8.3) 04/24/19 07:35 Albumin 3.3 gm/dL (3.7-5.3) L 04/24/19 07:35 Globulin 4.0 gm/dL 04/24/19 07:35 Albumin/Globulin Ratio 0.8 (1.0-1.8) L 04/24/19 07:35 Amylase 54 U/L (29-103) 04/24/19 07:35 Lipase 10 U/L (11-82) L 04/24/19 07:35 Urine Source RANDOM 04/24/19 12:14 Urine Color YELLOW 08/18/19 12:14 Urine Clarity CLOUDY (CLEAR) H 04/24/19 12:14 Urine pH 7.5 (4.6 - 8.0) 04/24/19 12:14 Ur Specific [place] 1.015 (1.005-1.030) 04/24/19 12:14 Urine Protein 30 mg/dL (NEGATIVE) H 04/24/19 12:14 Urine Glucose (UA) NEGATIVE mg/dL (NEGATIVE) 04/24/19 12:14 Urine Ketones NEGATIVE mg/dL (NEGATIVE) 04/24/19 12:14 Urine Blood MODERATE (NEGATIVE) H 04/24/19 12:14 Urine Nitrate NEGATIVE (NEGATIVE) 04/24/19 12:14 Urine Bilirubin NEGATIVE (NEGATIVE) 04/24/19 12:14 Urine Urobilinogen 0.2 E.U./dL (0.2 - 1.0) 04/24/19 12:14 Ur Leukocyte Esterase MODERATE (NEGATIVE) H 04/24/19 12:14 Urine RBC 2-5 /hpf (0-5) 04/24/19 12:14 Urine WBC >100 /hpf (0-5) H 04/24/19 12:14 Ur Epithelial Cells MODERATE /lpf (FEW) 04/24/19 12:14 Urine Bacteria 3+ /hpf (NONE SEEN) H 04/24/19 12:14 Vancomycin Trough 18.9 ug/mL (5-10) H 04/28/19 17:05 HIV 1&2 Antibody Screen POSITIVE (NEG) H 04/26/19 11:30 - Physical Exam Vitals and I&O: Vital Signs Temp 97.7 F 04/29/19 12:00 Pulse 66 04/29/19 12:00 Resp 17 04/29/19 12:00 BP 118/72 04/29/19 12:00 Pulse Ox 97 04/29/19 12:00 Intake & Output 04/28/19 04/29/19 04/29/19 18:59 06:59 18:59 Intake Total 250 2512.5 Balance 250 2512.5 Weight (lbs) 84.822 kg Intake: Intake, IV Amount 250 1552.5 D5-0.45NS 1,000 ml @ 75 952.5 mls/hr IV .[id number] [facility] Rx #:[id number] Levofloxacin 500mg/100mL 100 500 mg In 100 ml @ 100 mls/hr IV Q24HR [facility] Rx#: [id number] Vancomycin HCl 1 gm In 250 500 Sodium Chloride 0.9% 250 ml @ 165 mls/hr IV Q8H [facility] Rx#:[id number] Oral 960 Other: # Voids 5 # Bowel Movements 2 Stool Characteristics Soft Soft Soft Liquid Liquid Liquid Brown Brown Brown Weight Source Bedscale Active Medications: Current Medications Acetaminophen (Tylenol) 650 mg PO Q6HR PRN PRN Reason: Pain or Fever >101 Stop: 06/24/19 19:14 Acetaminophen/Hydrocodone Bitart (Beals 10 Mg/325 Mg) 1 tab PO Q6H PRN PRN Reason: Pain (Severe) Stop: 06/24/19 19:14 Last Admin: 04/27/19 12:52 Dose: 1 tab Acetaminophen/Hydrocodone Bitart (Beals 5mg/325mg) 1 tab PO Q6HR PRN PRN Reason: Pain (Moderate) Stop: 06/24/19 19:14 Last Admin: 04/29/19 15:14 Dose: 1 tab Al Hydrox/Mg Hydrox/Simethicone (Maalox) 30 ml PO Q6HR PRN PRN Reason: Constipation Stop: 06/24/19 19:14 Albuterol/Ipratropium (Duoneb Neb) 3 ml HHN Q4HR PRN PRN Reason: Shortness of Breath Stop: 06/24/19 19:14 Cholestyramine Resin (Questran) 4 gm PO DAILY [facility] Stop: 06/25/19 08:59 Last Admin: 04/29/19 08:08 Dose: 4 gm Diphenoxylate HCl/Atropine (Lomotil) 2 tab PO Q4HR PRN PRN Reason: UNK Stop: 06/24/19 19:14 Last Admin: 04/29/19 08:08 Dose: 2 tab Docusate Sodium (Colace) 100 mg PO BID [facility] Stop: 06/25/19 08:59 Last Admin: 04/29/19 08:09 Dose: Not Given Ergocalciferol (Vitamin D2) 50,000 iu PO QWEEK [facility] Stop: 06/25/19 08:59 Last Admin: 04/26/19 09:43 Dose: 50,000 iu Ferrous Sulfate (Iron) 325 mg PO DAILY [facility] Stop: 06/25/19 08:59 Last Admin: 04/29/19 08:08 Dose: 325 mg Gabapentin (Neurontin) 300 mg PO BID [facility] Stop: 06/28/19 08:59 Last Admin: 04/29/19 08:08 Dose: 300 mg Dextrose/Sodium Chloride (D5-0.45ns) 1,000 mls @ 75 mls/hr IV .[id number] [facility] Stop: 06/23/19 13:15 Last Admin: 04/29/19 05:42 Dose: 75 mls/hr Vancomycin HCl 1 gm/ Sodium (Chloride) 250 mls @ 165 mls/hr IV Q8H [facility] Stop: 06/26/19 17:59 Last Admin: 04/29/19 09:02 Dose: 165 mls/hr Levofloxacin (Levaquin Pb) 500 mg in 100 mls @ 100 mls/hr IV Q24HR [facility] Stop: 06/27/19 17:29 Last Infusion: 04/28/19 21:43 Dose: Infused Insulin Human Lispro (Humalog Insulin Sliding Scale) 0 units SUBQ ACHS [facility]; Protocol Stop: 06/25/19 07:29 Last Admin: 04/29/19 12:05 Dose: Not Given Lactulose (Cephulac) 20 gm PO BID [facility] Stop: 06/25/19 08:59 Last Admin: 04/29/19 08:09 Dose: Not Given Levofloxacin (Levaquin) 500 mg PO DAILY [facility] Stop: 05/10/19 08:59 Lorazepam (Ativan) 1 mg PO Q8HR PRN; Protocol PRN Reason: Anxiety Stop: 06/23/19 13:18 Last Admin: 04/26/19 20:35 Dose: 1 mg Lorazepam (Ativan) 0.5 mg PO Q4HR PRN; Protocol PRN Reason: Anxiety Stop: 06/24/19 19:16 Last Admin: 04/29/19 15:14 Dose: 0.5 mg Midodrine (Proamatine) 10 mg PO Q8HR [facility] Stop: 06/24/19 20:59 Last Admin: 04/29/19 12:15 Dose: 10 mg Mineral Oil (Mineral Oil 30 Ml) 30 ml PO DAILY PRN PRN Reason: Constipation Stop: 06/25/19 15:09 Miscellaneous (Vancomycin Iv Per Pharmacy) 1 ea MC PRN PRN PRN Reason: PROTOCOL Stop: 06/26/19 16:31 Miscellaneous (Probiotic Screen) 1 ea MC PRN PRN PRN Reason: PROTOCOL Stop: 06/28/19 13:58 Morphine Sulfate (Morphine) 1 mg IVP Q4HR PRN PRN Reason: MILD PAIN Stop: 06/23/19 13:20 Last Admin: 04/26/19 19:52 Dose: 1 mg Morphine Sulfate (Morphine) 2 mg IVP Q4HR PRN PRN Reason: MODERATE PAIN Stop: 06/23/19 13:21 Morphine Sulfate (Morphine) 4 mg IVP Q4H PRN PRN Reason: Severe Pain Stop: 06/23/19 20:42 Last Admin: 04/25/19 18:06 Dose: 4 mg Ondansetron HCl (Zofran Odt) 4 mg PO Q4HR PRN PRN Reason: Nausea Patient Own Med- (Biktarvy 50-200-25) 1 PO QPM [facility] Stop: 06/25/19 16:59 Last Admin: 04/28/19 16:59 Dose: 1 Petrolatum (Zinc Oxide) 1 appl TP BID PRN PRN Reason: Abdominal Cramping Stop: 06/24/19 14:30 Polyethylene Glycol (Miralax) 17 gm PO DAILY PRN PRN Reason: Constipation Stop: 06/24/19 14:29 Quetiapine Fumarate (Seroquel Xr) 200 mg PO HS [facility]; Protocol Stop: 06/24/19 20:59 Last Admin: 04/28/19 20:42 Dose: 200 mg Rifaximin (Xifaxan) 600 mg PO BID [facility] Stop: 06/25/19 08:59 Last Admin: 04/29/19 08:09 Dose: 600 mg Verapamil HCl (Calan Sr) 120 mg PO DAILY [facility] Stop: 06/25/19 08:59 Last Admin: 04/29/19 08:09 Dose: Not Given Wound Care/Dressing Products (Silvasorb) 1 appl TP DAILY [facility] Stop: 06/27/19 08:59 Last Admin: 04/29/19 08:09 Dose: 1 appl Zolpidem Tartrate (Ambien) 5 mg PO HS [facility] Stop: 06/24/19 20:59 Last Admin: 04/28/19 20:42 Dose: 5 mg Nutritional Asmnt/Malnutr-PDOC - Dietary Evaluation Malnutrition Findings (Please click <Entered> for more info): Nutritional Asmnt/Malnutrition Start: 04/25/19 15: 29 Text: Status: Complete Freq: Protocol: Document 04/25/19 15:29 RASHIDA (Rec: 04/25/19 15:35 [email or web address] [id number]) Nutritional Asmnt/Malnutrition Patient General Information Nutritional Screening Moderate Risk Consult Diagnosis Abdominal pain Pertinent Medical Hx/Surgical Hx Hypotension, COPD, Arrythmia, Anemia, Psychosis, Anxiety, Sepsis, Uterine cancer surgery 2004, Gastric bypass surgery, Bowel obstruction surgery Subjective Information IA/Consult: Andrea Score 12 Pt is a 58-year-old female from [place] admitted on 04/24 c/o abdominal pain and wound redness with drainage. Per Meal/Nutrition Activity Record, Pt ate 50% lunch and 75% dinner yesterday 04/24. Per nurse note on 04/25, 2 large abdominal wound openings noted on abdomen, site packed and covered with abdominal dressing. Pt was sleeping at time of visit. Spoke to GEORGIE Mendez, Pt ate 25-50% breakfast and dinner today, poor appetite d/t abdominal pain, no nausea reported. Pending Wound care consultation. GEORGIE Mendez stated PT usual diet is CCHO in [facility]. Recommend adding Glucerna TID to increase calories/protein needs and to support wound healing. Will continue monitor PO intake and wound healing progress. HT: 55 WT: 183 lb 4.8 oz (83.18 kg) ADJ BW: 67.47 kg BMI: 30.57 (Obese) GI: Nausea, Abdominal pain, Constipation, Large, Round, Tender BM: 04/25 x 2 I/O: 1960/100 (+1860) Skin: Warm, Dry, Elastic, Old Scar on Sacrum Wound: 2 large wound openings on abdomen Andrea: 14 Diet Order: [facility] Estimated Energy Needs: ( Pressure Ulcer Stage III-IV, ADJ BW) 2469-4048 kcals (33-35 kcals/ kg) 101-135 g Pro (1.5-2.0 g/kg) 6821-5978 ml (35-40 ml/kg) Current Diet Order/ Nutrition Support CCHO Pertinent Medications D5-0.45ns, Zinc Oxide Pertinent Labs 04/25: Hgb/Hct 12.0/35.0, Glucose 119 04/24: Hgb/Hct 12.1/36.5, [place] 3.2, Alb 3.3 Nutritional Hx/Data Height 1.65 m Height (Calculated Centimeters) 165.1 Current Weight (lbs) 83.007 kg Weight (Calculated Kilograms) 83.0 Weight (Calculated Grams) 19610.4 [place] Body Weight 57 kg % [place] Body Weight 146 Body Mass Index (BMI) 30.4 Weight Status Obese GI Symptoms GI Symptoms Nausea Constipation Last BM 04/25 x 2 Usual diet at home Carbs Contorlled diet at [facility] Skin Integrity/Comment: Skin: Warm, Dry, Elastic, Old Scar on Sacrum Wound: 2 large wound openings on abdomen Andrea: 14 Estimated Nutritional Goals BEE in Kcals: Adj wt of IBW Calories/Kcals/Kg 33-35 Kcals Calculated 8607-7343 Protein: Adj wt of IBW Protein g/k.5-2.0 Protein Calculated 101-135 Fluid: ml 9527-1303 ml (35-40 ml/kg) Nutritional Problem 2. Problem Problem Inadequate oral intake Etiology r/t abdominal pain Signs/Symptoms: aeb PO intake 25-50% on 04/25 per RN statement. 1. Problem Problem Increased calories and protein needs Etiology r/t wound healing Signs/Symptoms: aeb 2 large abdominal wound openings noted on abdomen Malnutrition Related to Morbid Obesity Malnutrition related to morbid obesity No Intervention/Recommendation Comments 1.Continue with CCHO diet as ordered. 2.Added Glucerna TID to increase calories/protein needs and to support wound healing (completed). 3.RN to encourage improved PO intake. Expected Outcomes/Goals Expected Outcomes/Goals 1.PO intake to meet 75% of nutritional needs. 2.Monitor PO intake, wt, nutrition related labs, and skin integrity to trend WNL. 3.F/U as moderate risk in 3-5 days, 04/28-04/30
[2019-04-29] MEDS: BIKTARVY PO SCH (16:49)
[2019-04-29] MEDS: Levofloxacin 500mg/100mL 500 MG/100 ML BAG IV SCH (16:50)
--- NOTE | 2019-04-29 18:12 | GI Progress Note ---
Subjective - Review of Systems Service Date: 04/29/19 Events since last encounter: no new events; pt resting comfortably GI OBJECTIVE - Results Result Diagrams: 04/29/19 05:00 04/29/19 05:00 Recent Labs: Laboratory Last Values WBC 4.2 Th/cmm (4.8-10.8) L 04/29/19 05:00 RBC 3.85 Mil/cmm (3.80-5.10) 04/29/19 05:00 Hgb 11.7 gm/dL (12-16) L 04/29/19 05:00 Hct 33.9 % (41.0-60) L 04/29/19 05:00 MCV 88.0 fl (81-100) 04/29/19 05:00 MCH 30.3 pg (27.0-31.0) 04/29/19 05:00 MCHC Differential 34.5 pg (28.0-36.0) 04/29/19 05:00 RDW 13.3 % (11.5-20.0) 04/29/19 05:00 Plt Count 367 Th/cmm (150-400) 04/29/19 05:00 MPV 7.1 fl 04/29/19 05:00 Add Manual Diff YES 04/28/19 05:10 Neutrophils % 71.4 % (40.0-80.0) 04/29/19 05:00 Lymphocytes % 19.0 % (20.0-50.0) L 04/29/19 05:00 Monocytes % 6.5 % (2.0-10.0) 04/29/19 05:00 Eosinophils % 3.1 % (0.0-5.0) 04/29/19 05:00 Basophils % 0.0 % (0.0-2.0) 04/29/19 05:00 Neutrophils (Manual) 64 % (40-80) 04/28/19 05:10 Lymphocytes 28 % (20-50) 04/28/19 05:10 Monocytes 6 % (2-10) 04/28/19 05:10 Eosinophils 2 % (0-5) 04/28/19 05:10 PT 10.2 SECONDS (9.5-11.5) 04/24/19 07:35 INR 0.98 (0.5-1.4) 04/24/19 07:35 Sodium 141 mEq/L (136-145) 04/29/19 05:00 Potassium 3.6 mEq/L (3.5-5.1) 04/29/19 05:00 Chloride 113 mEq/L (98-107) H 04/29/19 05:00 Carbon Dioxide 19.0 mEq/L (21.0-31.0) L 04/29/19 05:00 Anion Gap 12.6 (7.0-16.0) 04/29/19 05:00 BUN 5 mg/dL (7-25) L 04/29/19 05:00 Creatinine 0.8 mg/dL (0.6-1.2) 04/29/19 05:00 Est GFR ( Amer) > 60.0 ml/min (>90) 04/29/19 05:00 Est GFR (Non-Af Amer) > 60.0 ml/min 04/29/19 05:00 BUN/Creatinine Ratio 6.3 04/29/19 05:00 Glucose 94 mg/dL (70-105) 04/29/19 05:00 POC Glucose 75 MG/DL (70 - 105) 04/29/19 16:07 Calcium 9.4 mg/dL (8.6-10.3) 04/29/19 05:00 Total Bilirubin 0.4 mg/dL (0.3-1.0) 04/24/19 07:35 AST 11 U/L (13-39) L 04/24/19 07:35 ALT 9 U/L (7-52) 04/24/19 07:35 Alkaline Phosphatase 77 U/L (34-104) 04/24/19 07:35 Troponin I 0.01 ng/mL (0.01-0.05) 04/24/19 07:35 Total Protein 7.3 gm/dL (6.0-8.3) 04/24/19 07:35 Albumin 3.3 gm/dL (3.7-5.3) L 04/24/19 07:35 Globulin 4.0 gm/dL 04/24/19 07:35 Albumin/Globulin Ratio 0.8 (1.0-1.8) L 04/24/19 07:35 Amylase 54 U/L (29-103) 04/24/19 07:35 Lipase 10 U/L (11-82) L 04/24/19 07:35 Urine Source RANDOM 04/24/19 12:14 Urine Color YELLOW 04/24/19 12:14 Urine Clarity CLOUDY (CLEAR) H 04/24/19 12:14 Urine pH 7.5 (4.6 - 8.0) 04/24/19 12:14 Ur Specific [place] 1.015 (1.005-1.030) 04/24/19 12:14 Urine Protein 30 mg/dL (NEGATIVE) H 04/24/19 12:14 Urine Glucose (UA) NEGATIVE mg/dL (NEGATIVE) 04/24/19 12:14 Urine Ketones NEGATIVE mg/dL (NEGATIVE) 04/24/19 12:14 Urine Blood MODERATE (NEGATIVE) H 04/24/19 12:14 Urine Nitrate NEGATIVE (NEGATIVE) 04/24/19 12:14 Urine Bilirubin NEGATIVE (NEGATIVE) 04/24/19 12:14 Urine Urobilinogen 0.2 E.U./dL (0.2 - 1.0) 04/24/19 12:14 Ur Leukocyte Esterase MODERATE (NEGATIVE) H 04/24/19 12:14 Urine RBC 2-5 /hpf (0-5) 04/24/19 12:14 Urine WBC >100 /hpf (0-5) H 04/24/19 12:14 Ur Epithelial Cells MODERATE /lpf (FEW) 04/24/19 12:14 Urine Bacteria 3+ /hpf (NONE SEEN) H 04/24/19 12:14 Vancomycin Trough 18.9 ug/mL (5-10) H 04/28/19 17:05 HIV 1&2 Antibody Screen POSITIVE (NEG) H 04/26/19 11:30 - Physical Exam Vitals and I&O: Vital Signs Temp 97.4 F 04/29/19 16:00 Pulse 72 04/29/19 16:00 Resp 17 04/29/19 16:00 BP 119/69 04/29/19 16:00 Pulse Ox 96 04/29/19 16:00 Intake & Output 04/28/19 04/29/19 04/29/19 18:59 06:59 18:59 Intake Total 250 2512.5 250 Balance 250 2512.5 250 Weight (lbs) 84.822 kg Intake: Intake, IV Amount 250 1552.5 250 D5-0.45NS 1,000 ml @ 75 952.5 mls/hr IV .[id number] [facility] Rx #:[id number] Levofloxacin 500mg/100mL 100 500 mg In 100 ml @ 100 mls/hr IV Q24HR [facility] Rx#: [id number] Vancomycin HCl 1 gm In 250 500 250 Sodium Chloride 0.9% 250 ml @ 165 mls/hr IV Q8H [facility] Rx#:[id number] Oral 960 Other: # Voids 5 # Bowel Movements 2 Stool Characteristics Soft Soft Soft Liquid Liquid Liquid Brown Brown Brown Weight Source Bedscale Active Medications: Current Medications Acetaminophen (Tylenol) 650 mg PO Q6HR PRN PRN Reason: Pain or Fever >101 Stop: 06/24/19 19:14 Acetaminophen/Hydrocodone Bitart ([place] 10 Mg/325 Mg) 1 tab PO Q6H PRN PRN Reason: Pain (Severe) Stop: 06/24/19 19:14 Last Admin: 04/27/19 12:52 Dose: 1 tab Acetaminophen/Hydrocodone Bitart ([place] 5mg/325mg) 1 tab PO Q6HR PRN PRN Reason: Pain (Moderate) Stop: 06/24/19 19:14 Last Admin: 04/29/19 15:14 Dose: 1 tab Al Hydrox/Mg Hydrox/Simethicone (Maalox) 30 ml PO Q6HR PRN PRN Reason: Constipation Stop: 06/24/19 19:14 Albuterol/Ipratropium (Duoneb Neb) 3 ml HHN Q4HR PRN PRN Reason: Shortness of Breath Stop: 06/24/19 19:14 Cholestyramine Resin (Questran) 4 gm PO DAILY [facility] Stop: 06/25/19 08:59 Last Admin: 04/29/19 08:08 Dose: 4 gm Diphenoxylate HCl/Atropine (Lomotil) 2 tab PO Q4HR PRN PRN Reason: UNK Stop: 06/24/19 19:14 Last Admin: 04/29/19 08:08 Dose: 2 tab Docusate Sodium (Colace) 100 mg PO BID [facility] Stop: 06/25/19 08:59 Last Admin: 04/29/19 16:50 Dose: Not Given Ergocalciferol (Vitamin D2) 50,000 iu PO QWEEK [facility] Stop: 06/25/19 08:59 Last Admin: 04/26/19 09:43 Dose: 50,000 iu Ferrous Sulfate (Iron) 325 mg PO DAILY [facility] Stop: 06/25/19 08:59 Last Admin: 04/29/19 08:08 Dose: 325 mg Gabapentin (Neurontin) 300 mg PO BID [facility] Stop: 06/28/19 08:59 Last Admin: 04/29/19 16:50 Dose: 300 mg Dextrose/Sodium Chloride (D5-0.45ns) 1,000 mls @ 75 mls/hr IV .[id number] [facility] Stop: 06/23/19 13:15 Last Admin: 04/29/19 05:42 Dose: 75 mls/hr Vancomycin HCl 1 gm/ Sodium (Chloride) 250 mls @ 165 mls/hr IV Q8H [facility] Stop: 06/26/19 17:59 Last Admin: 04/29/19 17:29 Dose: 165 mls/hr Levofloxacin (Levaquin Pb) 500 mg in 100 mls @ 100 mls/hr IV Q24HR [facility] Stop: 06/27/19 17:29 Last Admin: 04/29/19 16:50 Dose: 100 mls/hr Insulin Human Lispro (Humalog Insulin Sliding Scale) 0 units SUBQ ACHS [facility]; Protocol Stop: 06/25/19 07:29 Last Admin: 04/29/19 16:47 Dose: Not Given Lactulose (Cephulac) 20 gm PO BID [facility] Stop: 06/25/19 08:59 Last Admin: 04/29/19 16:50 Dose: Not Given Levofloxacin (Levaquin) 500 mg PO DAILY [facility] Stop: 05/10/19 08:59 Lorazepam (Ativan) 1 mg PO Q8HR PRN; Protocol PRN Reason: Anxiety Stop: 06/23/19 13:18 Last Admin: 04/26/19 20:35 Dose: 1 mg Lorazepam (Ativan) 0.5 mg PO Q4HR PRN; Protocol PRN Reason: Anxiety Stop: 06/24/19 19:16 Last Admin: 04/29/19 15:14 Dose: 0.5 mg Midodrine (Proamatine) 10 mg PO Q8HR [facility] Stop: 06/24/19 20:59 Last Admin: 04/29/19 12:15 Dose: 10 mg Mineral Oil (Mineral Oil 30 Ml) 30 ml PO DAILY PRN PRN Reason: Constipation Stop: 06/25/19 15:09 Miscellaneous (Vancomycin Iv Per Pharmacy) 1 ea MC PRN PRN PRN Reason: PROTOCOL Stop: 06/26/19 16:31 Miscellaneous (Probiotic Screen) 1 ea MC PRN PRN PRN Reason: PROTOCOL Stop: 06/28/19 13:58 Morphine Sulfate (Morphine) 1 mg IVP Q4HR PRN PRN Reason: MILD PAIN Stop: 06/23/19 13:20 Last Admin: 04/26/19 19:52 Dose: 1 mg Morphine Sulfate (Morphine) 2 mg IVP Q4HR PRN PRN Reason: MODERATE PAIN Stop: 06/23/19 13:21 Morphine Sulfate (Morphine) 4 mg IVP Q4H PRN PRN Reason: Severe Pain Stop: 06/23/19 20:42 Last Admin: 04/25/19 18:06 Dose: 4 mg Ondansetron HCl (Zofran Odt) 4 mg PO Q4HR PRN PRN Reason: Nausea Patient Own Med- (Biktarvy [id number]) 1 PO QPM [facility] Stop: 06/25/19 16:59 Last Admin: 04/29/19 16:49 Dose: 1 Petrolatum (Zinc Oxide) 1 appl TP BID PRN PRN Reason: Abdominal Cramping Stop: 06/24/19 14:30 Polyethylene Glycol (Miralax) 17 gm PO DAILY PRN PRN Reason: Constipation Stop: 06/24/19 14:29 Quetiapine Fumarate (Seroquel Xr) 200 mg PO HS [facility]; Protocol Stop: 06/24/19 20:59 Last Admin: 04/28/19 20:42 Dose: 200 mg Rifaximin (Xifaxan) 600 mg PO BID [facility] Stop: 06/25/19 08:59 Last Admin: 04/29/19 16:50 Dose: 600 mg Verapamil HCl (Calan Sr) 120 mg PO DAILY [facility] Stop: 06/25/19 08:59 Last Admin: 04/29/19 08:09 Dose: Not Given Wound Care/Dressing Products (Silvasorb) 1 appl TP DAILY [facility] Stop: 06/27/19 08:59 Last Admin: 04/29/19 08:09 Dose: 1 appl Zolpidem Tartrate (Ambien) 5 mg PO HS [facility] Stop: 06/24/19 20:59 Last Admin: 04/28/19 20:42 Dose: 5 mg General: Oriented x3, Cooperative HEENT: Atraumatic Neck: Supple, Thyromegaly Cardiovascular: Regular rate, Normal S1, Normal S2 Lungs: Clear to auscultation Abdomen: Bowel sounds Assessment/Plan - Assessment Assessment: 1. fecal impaction 2. abdominal pain 3. abdominal wound dehiscence 4. Hx of uterine cancer 5. hx of HIV -wound care, consider surgical consult for open abdominal wounds -prn miralax -pt has been having good bowel movements since she has been here -dispo per primary
--- NOTE | 2019-04-30 10:54 | Internal Medicine Prog Note ---
Internal Medicine Subjective - Subjective Service Date: 04/30/19 Patient seen and examined:: with staff Patient is:: awake, verbal Patient Complaints of:: other (abd pain- now well controlled.) Per staff patient has:: no adverse event, no episodes of fall, tolerating meds Internal Medicine Objective - Results Result Diagrams: 04/29/19 05:00 04/29/19 05:00 Recent Labs: Laboratory Last Values WBC 4.2 Th/cmm (4.8-10.8) L 04/29/19 05:00 RBC 3.85 Mil/cmm (3.80-5.10) 04/29/19 05:00 Hgb 11.7 gm/dL (12-16) L 04/29/19 05:00 Hct 33.9 % (41.0-60) L 04/29/19 05:00 MCV 88.0 fl (81-100) 04/29/19 05:00 MCH 30.3 pg (27.0-31.0) 04/29/19 05:00 MCHC Differential 34.5 pg (28.0-36.0) 04/29/19 05:00 RDW 13.3 % (11.5-20.0) 04/29/19 05:00 Plt Count 367 Th/cmm (150-400) 04/29/19 05:00 MPV 7.1 fl 04/29/19 05:00 Add Manual Diff YES 04/28/19 05:10 Neutrophils % 71.4 % (40.0-80.0) 04/29/19 05:00 Lymphocytes % 19.0 % (20.0-50.0) L 04/29/19 05:00 Monocytes % 6.5 % (2.0-10.0) 04/29/19 05:00 Eosinophils % 3.1 % (0.0-5.0) 04/29/19 05:00 Basophils % 0.0 % (0.0-2.0) 04/29/19 05:00 Neutrophils (Manual) 64 % (40-80) 04/28/19 05:10 Lymphocytes 28 % (20-50) 04/28/19 05:10 Monocytes 6 % (2-10) 04/28/19 05:10 Eosinophils 2 % (0-5) 04/28/19 05:10 PT 10.2 SECONDS (9.5-11.5) 04/24/19 07:35 INR 0.98 (0.5-1.4) 04/24/19 07:35 Sodium 141 mEq/L (136-145) 04/29/19 05:00 Potassium 3.6 mEq/L (3.5-5.1) 04/29/19 05:00 Chloride 113 mEq/L (98-107) H 04/29/19 05:00 Carbon Dioxide 19.0 mEq/L (21.0-31.0) L 04/29/19 05:00 Anion Gap 12.6 (7.0-16.0) 04/29/19 05:00 BUN 5 mg/dL (7-25) L 04/29/19 05:00 Creatinine 0.8 mg/dL (0.6-1.2) 04/29/19 05:00 Est GFR ( Amer) > 60.0 ml/min (>90) 04/29/19 05:00 Est GFR (Non-Af Amer) > 60.0 ml/min 04/29/19 05:00 BUN/Creatinine Ratio 6.3 04/29/19 05:00 Glucose 94 mg/dL (70-105) 04/29/19 05:00 POC Glucose 75 MG/DL (70 - 105) 04/29/19 16:07 Calcium 9.4 mg/dL (8.6-10.3) 04/29/19 05:00 Total Bilirubin 0.4 mg/dL (0.3-1.0) 04/24/19 07:35 AST 11 U/L (13-39) L 04/24/19 07:35 ALT 9 U/L (7-52) 04/24/19 07:35 Alkaline Phosphatase 77 U/L (34-104) 04/24/19 07:35 Troponin I 0.01 ng/mL (0.01-0.05) 04/24/19 07:35 Total Protein 7.3 gm/dL (6.0-8.3) 04/24/19 07:35 Albumin 3.3 gm/dL (3.7-5.3) L 04/24/19 07:35 Globulin 4.0 gm/dL 04/24/19 07:35 Albumin/Globulin Ratio 0.8 (1.0-1.8) L 04/24/19 07:35 Amylase 54 U/L (29-103) 04/24/19 07:35 Lipase 10 U/L (11-82) L 04/24/19 07:35 Urine Source RANDOM 04/24/19 12:14 Urine Color YELLOW 04/24/19 12:14 Urine Clarity CLOUDY (CLEAR) H 04/24/19 12:14 Urine pH 7.5 (4.6 - 8.0) 04/24/19 12:14 Ur Specific Rolfe 1.015 (1.005-1.030) 04/24/19 12:14 Urine Protein 30 mg/dL (NEGATIVE) H 04/24/19 12:14 Urine Glucose (UA) NEGATIVE mg/dL (NEGATIVE) 04/24/19 12:14 Urine Ketones NEGATIVE mg/dL (NEGATIVE) 04/24/19 12:14 Urine Blood MODERATE (NEGATIVE) H 04/24/19 12:14 Urine Nitrate NEGATIVE (NEGATIVE) 04/24/19 12:14 Urine Bilirubin NEGATIVE (NEGATIVE) 04/24/19 12:14 Urine Urobilinogen 0.2 E.U./dL (0.2 - 1.0) 04/24/19 12:14 Ur Leukocyte Esterase MODERATE (NEGATIVE) H 04/24/19 12:14 Urine RBC 2-5 /hpf (0-5) 04/24/19 12:14 Urine WBC >100 /hpf (0-5) H 04/24/19 12:14 Ur Epithelial Cells MODERATE /lpf (FEW) 04/24/19 12:14 Urine Bacteria 3+ /hpf (NONE SEEN) H 04/24/19 12:14 Vancomycin Trough 18.9 ug/mL (5-10) H 04/28/19 17:05 HIV 1&2 Antibody Screen POSITIVE (NEG) H 04/26/19 11:30 - Physical Exam Vitals and I&O: Vital Signs Temp 97 F 04/29/19 20:01 Pulse 74 04/29/19 20:01 Resp 18 04/29/19 20:01 BP 129/77 04/29/19 20:01 Pulse Ox 99 04/29/19 20:01 Intake & Output 04/29/19 04/30/19 04/30/19 18:59 06:59 18:59 Intake Total 950 500 Balance 950 500 Weight (lbs) 84.822 kg Intake: Intake, IV Amount 250 500 Levofloxacin 500mg/100mL 100 500 mg In 100 ml @ 100 mls/hr IV Q24HR [facility] Rx#: [id number] Piperacillin Sodium/ 50 Tazobact 3.375 gm In Sodium Chloride 0.9% 50 ml @ 100 mls/hr IV Q8HR [facility] Rx#:[id number] Vancomycin HCl 1 gm In 250 250 Sodium Chloride 0.9% 250 ml @ 165 mls/hr IV Q8H [facility] Rx#:[id number] Oral 700 Other: # Voids 3 # Bowel Movements 2 Stool Characteristics Soft Liquid Brown Weight Source Bedscale Physical Exam: Patient's abdominal pain is well controlled. General: weak, alert HEENT: NC/AT, PERRLA Neck: Supple Lungs: CTAB Cardiovascular: RRR, Normal S1, Normal S2 Abdomen: non-tender Extremities: clear Neurological: no change, bedbound Internal Medicine Assmt/Plan - Assessment Assessment: Fecal Impaction. Abdominal Wound Dehiscence. Abdominal pain. Back pain. Spinal stenosis. Depression. History of HIV. History of Uterine cancer surgery 2004. History of Gastric bypass surgery. History of Bowel obstruction surgery. History of Hypotension. History of Copd. History of Arrhythmia. History of Anemia. History of Psychosis. History of Anxiety. - Plan Plan: Continuation of care. Monitor Vitals, Labs, Hemoglobin levels. Continue present meds as directed. Respiratory treatments and Pulmonary support prn. Supplemental Oxygen prn. Aspiration precaution. Deep suctioning prn. Monitor Diet/Nutritional support. Monitor mental status progression. Monitor behavioral health status. Pain Management. Local skin care and Wound care. Physical therapy prn. Occupational therapy prn . Fall precaution, frequent nursing rounds, and as needed restraints to prevent fall. Safety precaution. Supportive care. Continue collaborating with consulting specialists, case management and nursing team. Will Monitor patient and continue present care management. Nutritional Asmnt/Malnutr-PDOC - Dietary Evaluation Malnutrition Findings (Please click <Entered> for more info): Nutritional Asmnt/Malnutrition Start: 04/25/19 15: 29 Text: Status: Complete Freq: Protocol: Document 04/25/19 15:29 RASHIDA (Rec: 04/25/19 15:35 RASHIDA [id number]) Nutritional Asmnt/Malnutrition Patient General Information Nutritional Screening Moderate Risk Consult Diagnosis Abdominal pain Pertinent Medical Hx/Surgical Hx Hypotension, COPD, Arrythmia, Anemia, Psychosis, Anxiety, Sepsis, Uterine cancer surgery 2004, Gastric bypass surgery, Bowel obstruction surgery Subjective Information IA/Consult: Andrea Score 12 Pt is a 58-year-old female from long term admitted on 04/24 c/o abdominal pain and wound redness with drainage. Per Meal/Nutrition Activity Record, Pt ate 50% lunch and 75% dinner yesterday 04/24. Per nurse note on 04/25, 2 large abdominal wound openings noted on abdomen, site packed and covered with abdominal dressing. Pt was sleeping at time of visit. Spoke to GEORGIE Mendez, Pt ate 25-50% breakfast and dinner today, poor appetite d/t abdominal pain, no nausea reported. Pending Wound care consultation. GEORGIE Mendez stated PT usual diet is CCHO in long term. Recommend adding Glucerna TID to increase calories/protein needs and to support wound healing. Will continue monitor PO intake and wound healing progress. HT: 55 WT: 183 lb 4.8 oz (83.18 kg) ADJ BW: 67.47 kg BMI: 30.57 (Obese) GI: Nausea, Abdominal pain, Constipation, Large, Round, Tender BM: 04/25 x 2 I/O: 1960/100 (+1860) Skin: Warm, Dry, Elastic, Old Scar on Sacrum Wound: 2 large wound openings on abdomen Andrea: 14 Diet Order: [facility] Estimated Energy Needs: ( Pressure Ulcer Stage III-IV, ADJ BW) 8437-0411 kcals (33-35 kcals/ kg) 101-135 g Pro (1.5-2.0 g/kg) 9946-6362 ml (35-40 ml/kg) Current Diet Order/ Nutrition Support [facility] Pertinent Medications D5-0.45ns, Zinc Oxide Pertinent Labs 04/25: Hgb/Hct 12.0/35.0, Glucose 119 04/24: Hgb/Hct 12.1/36.5, Potass 3.2, Alb 3.3 Nutritional Hx/Data Height 1.65 m Height (Calculated Centimeters) 165.1 Current Weight (lbs) 83.007 kg Weight (Calculated Kilograms) 83.0 Weight (Calculated Grams) 89465.4 [place] Body Weight 57 kg % [place] Body Weight 146 Body Mass Index (BMI) 30.4 Weight Status Obese GI Symptoms GI Symptoms Nausea Constipation Last BM 04/25 x 2 Usual diet at home Carbs Contorlled diet at [facility] Skin Integrity/Comment: Skin: Warm, Dry, Elastic, Old Scar on Sacrum Wound: 2 large wound openings on abdomen Andrea: 14 Estimated Nutritional Goals BEE in Kcals: Adj wt of IBW Calories/Kcals/Kg 33-35 Kcals Calculated 3744-4627 Protein: Adj wt of IBW Protein g/k.5-2.0 Protein Calculated 101-135 Fluid: ml 2032-5439 ml (35-40 ml/kg) Nutritional Problem 2. Problem Problem Inadequate oral intake Etiology r/t abdominal pain Signs/Symptoms: aeb PO intake 25-50% on 04/25 per RN statement. 1. Problem Problem Increased calories and protein needs Etiology r/t wound healing Signs/Symptoms: aeb 2 large abdominal wound openings noted on abdomen Malnutrition Related to Morbid Obesity Malnutrition related to morbid obesity No Intervention/Recommendation Comments 1.Continue with CCHO diet as ordered. 2.Added Glucerna TID to increase calories/protein needs and to support wound healing (completed). 3.RN to encourage improved PO intake. Expected Outcomes/Goals Expected Outcomes/Goals 1.PO intake to meet 75% of nutritional needs. 2.Monitor PO intake, wt, nutrition related labs, and skin integrity to trend WNL. 3.F/U as moderate risk in 3-5 days, 04/28-04/30
--- NOTE | 2019-05-03 22:09 | Discharge Summary ---
General Discharge Summary - Discharge Summary Date of Admission: 04/24/19 Admitting Diagnosis: Abdominal pain and wound drainage. Discharge Date: 04/28/19 Discharge Diagnosis: Abdominal pain, Spinal stenosis, Depression, Fecal impaction, Back pain, Hx of Uterine cancer, History of bypass surgery, Hypotension, COPD, Hx of Atrial fibrillation, Hx of Anemia, Hx of Psychosis, Hx of Anxiety and wound drainage. Laboratory Findings: see labs Hospital Course: DISCHARGE SUMMARY Cassie Barragan Date of Admission is 04/24/19. Date of Discharge is 04/28/19 ADMITTING DIAGNOSIS: Abdominal pain. Spinal stenosis. Depression. Fecal impaction. Back pain. Hx of Uterine cancer. History of bypass surgery. Hypotension. COPD. Hx of Atrial fibrillation. Hx of Anemia. Hx of Psychosis. Hx of Anxiety. Wound drainage. DISCHARGE DIAGNOSIS (es): Abdominal pain-Treated, resolving. Spinal stenosis. Depression-treated, improving. Fecal impaction, Treated, resolved. Back pain-treated, improving. Hx of Uterine cancer. History of bypass surgery. Hypotension-stable. COPD. Hx of Atrial fibrillation. Hx of Anemia. Hx of Psychosis. Hx of Anxiety. Wound drainage-Treated, Improving. Patient was admitted to: Med/Surg for the following evaluations and treatment Hospital Course and Treatment Rendered: IV Antibiotics, Lab tests, EKG, Abdominal/Pelvis CT, KUB x-ray, Wound care and local skin care, Monitor vitals, Pulmonary support, Pain management, Supportive care, Fall precaution, Monitor mental status, GI consult, Internal medicine consult, ID consult and Psych consult. Adjustment of medication: IV Antibiotics. The course of hospitalization was uncomplicated and the course of the treatments was uneventful. CONSULT: GI consult, Internal medicine consult, ID consult and Psych consult. Diagnostic Study (ies): Chest x-ray. DISCHARGE CONDITION: Stable. Patient discharged to [facility]. Activity: Resume normal activity as tolerated. Diet: Resume previous diet. Medications: Please see medication reconciliation sheet. I will Follow-up with patient with in x 2 days. Discharge Instructions: Patient/Family instructed on diagnosis, follow-up, and diagnostic testing. Greater than 30 minutes was spent with patient on discharge. Health Concerns: Abdominal pain. Assessment: Abdominal pain-Treated, resolving. Spinal stenosis. Depression-treated, improving. Fecal impaction, Treated, resolved. Back pain-treated, improving. Hx of Uterine cancer. History of bypass surgery. Hypotension-stable. COPD. Hx of Atrial fibrillation. Hx of Anemia. Hx of Psychosis. Hx of Anxiety. Wound drainage-Treated, Improving. Plan of Treatment: Hospital Course and Treatment Rendered: IV Antibiotics, Lab tests, EKG, Abdominal/Pelvis CT, KUB x-ray, Wound care and local skin care, Monitor vitals, Pulmonary support, Pain management, Supportive care, Fall precaution, Monitor mental status, GI consult, Internal medicine consult, ID consult and Psych consult. Adjustment of medication: IV Antibiotics. The course of hospitalization was uncomplicated and the course of the treatments was uneventful. Care Plan Goals: CPM Condition at Discharge: Stable Disposition: Discharge/Transfered to SNF Home Medications: Home Medication Medication Instructions Recorded Type Acetaminophen [Tylenol] 650 mg PO Q6HR PRN 04/24/19 History Albuterol/Ipratropium Neb [Duoneb 3 ml HHN Q4HR PRN 04/24/19 History Neb] Amino Acids/Protein Hydrolys 30 ml PO TID 04/24/19 History [Pro-Stat Awc Liquid] Bictegrav/Emtricit/Tenofov Ala 1 each PO QPM 04/24/19 History [Biktarvy 50-200-25 mg Tablet] Cholestyramine (with Sugar) 1 pkt PO DAILY 04/24/19 History [Cholestyramine Packet] Diphenoxylate HCl/Atropine 2 tab PO Q4HR PRN 04/24/19 History [Diphenoxylate-Atrop 2.5-0.025] Docusate Sodium [Colace] 100 mg PO BID 04/24/19 History Ergocalciferol [Vitamin D2] 50,000 iu PO QWEEK 04/24/19 History Ferrous Sulfate 325 mg PO DAILY 04/24/19 History Hydrocodone/APAP 10 mg/325 mg 1 tab PO Q6H PRN 04/24/19 History [Haslet 10 mg/325 mg] Hydrocodone/Acetaminophen [Haslet 1 each PO Q6HR PRN 04/24/19 History 5-325 Tablet] Insulin Aspart (Niacinamide) See Protocol SQ ACHS 04/24/19 History [Fiasp 100 Unit/ml Vial] Lactulose 30 ml PO BID 04/24/19 History Lorazepam [Ativan] 0.5 mg PO Q4HR PRN 04/24/19 History Mag Hydrox/Al Hydrox/Simeth 30 ml PO Q6HR PRN 04/24/19 History [Liquid Antacid Suspension] Midodrine [Proamatine] 10 mg PO Q8HR 04/24/19 History Multivitamin w/ Minerals 1 tab PO DAILY 04/24/19 History [Theragran M] Ondansetron HCl [Zofran*] 4 mg PO Q4HR PRN 04/24/19 History Quetiapine Fumarate [Seroquel Xr] 200 mg PO HS 04/24/19 History Rifaximin [Xifaxan] 550 mg PO BID 04/24/19 History Verapamil HCl [Verapamil ER] 120 mg PO DAILY 04/24/19 History Zolpidem Tartrate [Ambien] 5 mg PO HS 04/24/19 History Gabapentin [Neurontin*] 300 mg PO BID cap 04/29/19 Rx Insulin Lispro Sliding Scale See Protocol SUBQ ACHS unit 04/29/19 Rx [humaLOG INSULIN SLIDING SCALE] Levofloxacin [Levaquin] 500 mg PO DAILY #10 tab 04/29/19 Rx Lorazepam [Ativan] 1 mg PO Q8HR PRN tab 04/29/19 Rx Mineral Oil [Mineral Oil 30 ml] 30 ml PO DAILY PRN udc 04/29/19 Rx Morphine Sulfate [Morphine] 1 mg IVP Q4HR PRN syr 04/29/19 Rx Morphine Sulfate [Morphine] 2 mg IVP Q4HR PRN syr 04/29/19 Rx Morphine Sulfate [Morphine] 4 mg IVP Q4H PRN syr 04/29/19 Rx Polyethylene Glycol 3350 [Miralax] 17 gm PO DAILY PRN pack 04/29/19 Rx Silver Gel [Silvasorb] 1 appl TP DAILY appl 04/29/19 Rx Vancomycin HCl [Vancomycin] 1 gm IV Q8H #10 vial 04/29/19 Rx Zinc Oxide Ointment [Zinc Oxide] 1 appl TP BID PRN appl 04/29/19 Rx Activity: As Tolerated Discharge Diet: Other (see order.) Consults and Follow-Up: vEan Bach [Primary Care Provider] - Consulting Speciality: Other Instructions: MRSA Overview, Fecal Impaction
== END 2019-04-29 21:30 | DRG 813 ==
LOC: ER 06:43 → MSI 11:37
PROVIDERS: ADMIT Internal Medicine; ATTEND Internal Medicine
DX: T81.31XA Disruption of external operation (surgical) wound, not elsewhere classified, initial encounter (principal); K63.2 Fistula of intestine; D70.9 Neutropenia, unspecified; E66.01 Morbid (severe) obesity due to excess calories; F31.4 Bipolar disorder, current episode depressed, severe, without psychotic features; N13.30 Unspecified hydronephrosis; K56.41 Fecal impaction; M48.00 Spinal stenosis, site unspecified; N39.0 Urinary tract infection, site not specified; J44.9 Chronic obstructive pulmonary disease, unspecified; G89.4 Chronic pain syndrome; G47.30 Sleep apnea, unspecified; I10 Essential (primary) hypertension; Y82.8 Other medical devices associated with adverse incidents; F41.9 Anxiety disorder, unspecified; Z85.42 Personal history of malignant neoplasm of other parts of uterus; Z98.84 Bariatric surgery status; Z90.710 Acquired absence of both cervix and uterus; Z68.31 Body mass index [BMI] 31.0-31.9, adult; Y92.89 Other specified places as the place of occurrence of the external cause; Z79.899 Other long term (current) drug therapy
CPT/HCPCS: 36415-UA; 74000-TC; 80048-TC; 80053-TC; 80202-TC; 81001-TC; 82150-TC; 82948-90; 83690-TC; 84484-TC; 85007-TC; 85025-TC; 85610-TC; 86361-90; 86689-90; 86703-TC; 87070-90; 87086-90; 87536-90; 93005; 94760; 96374; 96375; A4217; J0696; J1956; J2270; J2543; J3370; J3480; J7030; Z7610